=== PATIENT | male | born 1965 ===

== ENCOUNTER 2017-03-08 12:43 | Emergency (ER) | payer OTHER | END 2017-03-08 15:33 | disposition home or self-care (01) | LOC: C.ER 12:43 | DX: I10 Essential (primary) hypertension (principal) ==

== ENCOUNTER 2018-03-05 01:43 | Emergency (ER) | payer MEDICAID, OTHER ==
[2018-03-05 01:44] VITALS: BMI 30.1
[2018-03-05] MEDS ORDERED: Naloxone 0.4 mg/ml Inj (Adult) ONE ×2 (02:02→03:11)
[2018-03-05 02:39] LABS: BASO # 0.1 K/uL (0.0-0.2); BASO % 0.9 % (0.0-2.0); EOS # 0.1 K/uL (0.0-0.7); EOS % 2.2 % (0.0-4.0); HEMOGLOBIN 14.4 g/dL (12.0-18.0); LYMPH % 29.8 % (20.0-40.0); MEAN CELL VOLUME 82.6 fL (80.0-94.0); MEAN CORPUSCULAR HEMOGLOBIN 27.4 pg (27.0-31.0); MEAN CORPUSCULAR HGB CONC 33.1 g/dL (33.0-37.0); MEAN PLATELET VOLUME 9.9 fL (7.2-11.7); MONO # 0.7 K/uL (0.0-0.8); MONO % 9.9 % (0.0-10.0); NEUT # 3.8 K/uL (1.8-7.0); NEUT % 57.2 % (50.0-75.0); NRBC % 0.1 % (0.0-2.0); RBC 5.25 Mil/uL (4.40-5.90); RED CELL DISTRIBUTION WIDTH 15.7 % (11.5-14.5); WHITE BLOOD COUNT 6.6 K/uL (4.8-10.8)
[2018-03-05 02:47] LABS: ALB/GLOB RATIO 1.2 (1.0-2.1); ALBUMIN 3.8 g/dL (3.5-5.0); ALT/SGPT 77 U/L (21-72); AST/SGOT 61 U/L (17-59); BLOOD UREA NITROGEN 13 mg/dL (9-20); CALCIUM 8.9 mg/dl (8.6-10.4); GFR AFRICAN-AMERICAN > 60; GFR NON-AFRICAN AMERICAN > 60
[2018-03-05] MEDS ORDERED: Naloxone 0.4 mg/ml Inj (Adult) IVP ONE (02:51)
[2018-03-05] MEDS ORDERED: Naloxone 0.4 mg/ml Inj (Adult) IM ONE (03:00)
[2018-03-05 03:13] LABS: URINE BILIRUBIN NEGATIVE (NEGATIVE); URINE CLARITY Clear (Clear); URINE COLOR Straw (YELLOW); URINE GLUCOSE (UA) NORMAL (Normal); URINE LEUKOCYTE ESTERASE NEG Leu/uL (Negative); URINE PROTEIN 1+ mg/dL (NEGATIVE); URINE UROBILINOGEN NORMAL mg/dL (0.2-1.0)
[2018-03-05 03:14] LABS: URINE BLOOD TRACE (NEGATIVE)
[2018-03-05 04:15] LABS: BARBITURATES, UR NEGATIVE (NEGATIVE); BENZODIAZEPINES, UR NEGATIVE (NEGATIVE); OPIATES, UR NEGATIVE (NEGATIVE); PHENCYCLIDINE, UR NEGATIVE (NEGATIVE)
--- NOTE | 2018-03-05 06:17 | C.PDOC ---
History Of Present Illness Pt was BIBEMS due to public intoxication. Time Seen by Provider: 03/05/18 02:07 Chief Complaint (Nursing): Altered Mental Status History Per: Patient, EMS History/Exam Limitations: Intoxication Onset/Duration Of Symptoms: Unknown Current Symptoms Are (Timing): Still Present Exacerbating Factor(s): Drug Use, Alcohol Use Severity: Severe Additional History Per: Prior Records Past Medical History Reviewed: Historical Data, Nursing Documentation, Vital Signs Vital Signs: Last Vital Signs Temp 97.5 F L 03/05/18 01:54 Pulse 77 03/05/18 06:27 Resp 20 03/05/18 06:27 BP 149/82 03/05/18 06:27 Pulse Ox 95 03/05/18 06:27 - Medical History PMH: CHF, HTN, Hypercholesterolemia, Schizophrenia - [facility] Procedures DETOXIFICATION SERVICES FOR SUBSTANCE ABUSE TREATMENT (01/26/16) DIPHTHERIA TOXOID ADMIN (01/01/14) INSERTION OF ENDOTRACHEAL AIRWAY INTO TRACHEA, VIA OPENING (01/26/16) RESPIRATORY VENTILATION, GREATER THAN 96 CONSECUTIVE HOURS (01/26/16) TETANUS TOXOID ADMINIST (01/01/14) Family History: States: Unknown Family Hx - Social History Hx Tobacco Use: Yes Hx Alcohol Use: Yes - Immunization History Hx Influenza Vaccination: No Hx Pneumococcal Vaccination: Yes Review Of Systems Review Of Systems: ROS cannot be obtained secondary to pt's inabilty to answer questions. Physical Exam - Physical Exam Appears: Other (Arousable only to deep painful stimuli) Skin: Normal Color, Warm, Dry Head: Atraumatic Eye(s): bilateral: PERRL Neck: Normal ROM, No Midline Cervical Tenderness, No Step Off Deformity, Supple Cardiovascular: Rhythm Regular Respiratory: Normal Breath Sounds, No Accessory Muscle Use Gastrointestinal/Abdominal: Soft Extremity: Normal ROM, No Deformity Neurological/Psych: No Response To Commands Pain Response: Withdraws With Pain Gait: Unable To Assess ED Course And Treatment - Laboratory Results Result Diagrams: 03/05/18 02:34 03/05/18 02:34 O2 Sat by Pulse Oximetry: 98 Pulse Ox Interpretation: Normal - CT Scan/US CT head Other Rad Studies (CT/US): Read By Radiologist, Radiology Report Reviewed CT/US Interpretation: IMPRESSION: 1.No evidence of intracranial hemorrhage, midline shift or mass effect is noted. Progress Note: Pt is improving, now arrousable to light touch/loud verbal stimuli. Reassessment Condition: Improved Disposition - Disposition Disposition Time: 07:00 Condition: FAIR - Clinical Impression Clinical Impression: Alcohol intoxication, Altered mental status Physician Patient Turnover Patient Signed Over To: Juan Manuel Garcia Handoff Comments: to reassess/dispo pt once sober.
[2018-03-05 07:54] VITALS: RESP 18
[2018-03-05 10:27] VITALS: BP 187/96; PULSE 86; TEMP 99.1; O2SAT 98
--- NOTE | 2018-03-05 12:20 | CT ---
Date of service: 03/05/2018 PROCEDURE: CT HEAD WITHOUT CONTRAST. HISTORY: AMS COMPARISON: None available. TECHNIQUE: Axial computed tomography images were obtained through the head/brain without intravenous contrast. Radiation dose: Total exam DLP = 1040.98 mGy-cm. This CT exam was performed using one or more of the following dose reduction techniques: Automated exposure control, adjustment of the mA and/or kV according to patient size, and/or use of iterative reconstruction technique. FINDINGS: HEMORRHAGE: No intracranial hemorrhage. BRAIN: Dilated perivascular spaces versus chronic lacune infarcts are seen at the bilateral basal ganglia with remaining brain normal in density throughout. Good corticomedullary differentiation is appreciated with posterior fossa contents unremarkable. No mass effect. VENTRICLES: Unremarkable. No hydrocephalus. CALVARIUM: Unremarkable. PARANASAL SINUSES: Left maxillary sinus cyst or polyp noted inferiorly. MASTOID AIR CELLS: Unremarkable as visualized. No inflammatory changes. OTHER FINDINGS: None. IMPRESSION: No acute intracranial findings though chronic lacunes are difficult to differentiate from a few dilated perivascular a seen the bilateral basal ganglia. Concordant preliminary report from [facility], 03/05/2018.
== END 2018-03-05 10:44 | disposition home or self-care (01) ==
LOC: C.ER 01:43
DX: F10.129 Alcohol abuse with intoxication, unspecified (principal); Y90.6 Blood alcohol level of 120-199 mg/100 ml; R41.82 Altered mental status, unspecified; I11.0 Hypertensive heart disease with heart failure; I50.9 Heart failure, unspecified; E78.00 Pure hypercholesterolemia, unspecified; F20.9 Schizophrenia, unspecified
CPT/HCPCS: 70450; 80053; 80320; 80324; 80345; 80346; 80349; 80353; 80358; 80361; 81001; 82948; 83992; 85025; 96372; 96374; 99285; J2310

== ENCOUNTER 2018-04-01 19:59 | Emergency (ER) | payer MEDICAID, OTHER ==
[2018-04-01 19:59] VITALS: BMI 30.1
--- NOTE | 2018-04-01 20:09 | C.PDOC ---
History Of Present Illness 53 year old male presents to the ED c/o chest pain. Patient states he had been drinking alcohol tonight. Patient denies any drug abuse, SOB, palpitations, other medical complaints. History Per: Patient History/Exam Limitations: intoxication Onset/Duration Of Symptoms: Hrs Current Symptoms Are (Timing): Still Present Severity: None Quality: "Pain" Exacerbating Factors: None Alleviating Factors: None Recent travel outside of the [place]: No Additional History Per: Patient Past Medical History Reviewed: Historical Data, Nursing Documentation, Vital Signs Vital Signs: Last Vital Signs Temp 97.8 F 04/02/18 00:03 Pulse 85 04/02/18 00:03 Resp 16 04/02/18 00:03 BP 145/83 04/02/18 00:03 Pulse Ox 98 04/02/18 00:03 - Medical History PMH: CHF, HTN, Hypercholesterolemia, Schizophrenia Denies: HIV, Chronic Kidney Disease, Seizures, Sexually Transmitted Disease Surgical History: No Surg Hx - [facility] Procedures DETOXIFICATION SERVICES FOR SUBSTANCE ABUSE TREATMENT (01/26/16) DIPHTHERIA TOXOID ADMIN (01/01/14) INSERTION OF ENDOTRACHEAL AIRWAY INTO TRACHEA, VIA OPENING (01/26/16) RESPIRATORY VENTILATION, GREATER THAN 96 CONSECUTIVE HOURS (01/26/16) TETANUS TOXOID ADMINIST (01/01/14) Family History: States: Unknown Family Hx - Social History Hx Tobacco Use: Yes Hx Alcohol Use: Yes Hx Substance Use: No - Immunization History Hx Influenza Vaccination: No Hx Pneumococcal Vaccination: Yes Review Of Systems Constitutional: Negative for: Fever, Chills Cardiovascular: Positive for: Chest Pain. Negative for: Palpitations Respiratory: Negative for: Cough, Shortness of Breath Gastrointestinal: Negative for: Nausea, Vomiting Skin: Negative for: Rash Neurological: Negative for: Weakness, Numbness Physical Exam - Physical Exam Appears: Non-toxic, Other (lethargic) Skin: Normal Color, Warm, Dry Head: Atraumatic, Normacephalic Eye(s): bilateral: Normal Inspection Oral Mucosa: Moist Neck: Normal ROM, Supple Chest: Symmetrical Cardiovascular: Rhythm Regular Respiratory: Normal Breath Sounds, No Rales, No Rhonchi, No Wheezing Gastrointestinal/Abdominal: Soft, No Tenderness, No Guarding, No Rebound Extremity: Normal ROM, No Tenderness, No Swelling Neurological/Psych: Oriented x3, Normal Speech Gait: Steady ED Course And Treatment - Laboratory Results Result Diagrams: 04/01/18 20:39 04/01/18 20:39 ECG: Interpreted By Me, Viewed By Me ECG Rhythm: Sinus Rhythm ECG Interpretation: No Acute Changes, Abnormal Interpretation Of ECG: NSR, prolonged QT interval, no acute changes, aabnormal tracings. ST-T abnormality no longer seen compare to travings of 07/07/2016 Rate From EC Pulse Ox Interpretation: Normal Medical Decision Making Medical Decision Making: Plan: * EKG * Labs * CXR * UA * IV fluids Disposition Counseled Patient/Family Regarding: Diagnosis - Disposition Referrals: [facility] [Outside] Disposition: HOME/ ROUTINE Disposition Time: 06:00 Condition: STABLE Prescriptions: Potassium Chloride 20 meq PO DAILY #14 [email or web address] Instructions: Hypokalemia (DC), Alcohol Abuse and Alcoholism (DC) - POA Present On Arrival: None - Clinical Impression Clinical Impression: Alcohol intoxication, Hypokalemia - Scribe Statement The provider has reviewed the documentation as recorded by the Scribe Eduardo Velazquez All medical record entries made by the Scribe were at my direction and personally dictated by me. I have reviewed the chart and agree that the record accurately reflects my personal performance of the history, physical exam, medical decision making, and the department course for this patient. I have also personally directed, reviewed, and agree with the discharge instructions and disposition.
[2018-04-01] MEDS ORDERED: Sodium Chloride 0.9% 1,000 ML IV ONE (20:22)
[2018-04-01 20:43] LABS: BASO % 0.5 % (0.0-2.0); EOS # 0.2 K/uL (0.0-0.7); EOS % 2.5 % (0.0-4.0); LYMPH # 1.8 K/uL (1.0-4.3); LYMPH % 26.1 % (20.0-40.0); MEAN CELL VOLUME 84.7 fL (80.0-94.0); MEAN CORPUSCULAR HEMOGLOBIN 28.2 pg (27.0-31.0); MEAN CORPUSCULAR HGB CONC 33.3 g/dL (33.0-37.0); MEAN PLATELET VOLUME 9.5 fL (7.2-11.7); MONO # 0.7 K/uL (0.0-0.8); MONO % 9.7 % (0.0-10.0); NEUT # 4.2 K/uL (1.8-7.0); NEUT % 61.2 % (50.0-75.0); NRBC % 0.3 % (0.0-2.0); RBC 5.33 Mil/uL (4.40-5.90); RED CELL DISTRIBUTION WIDTH 16.2 % (11.5-14.5); WHITE BLOOD COUNT 6.9 K/uL (4.8-10.8)
[2018-04-01 20:50] LABS: PARTIAL THROMBOPLASTIN TIME 28 SECONDS (21-34); PROTHROMBIN TIME 10.9 SECONDS (9.7-12.2)
[2018-04-01 20:57] LABS: D DIMER < 200 ng/mlDDU (0-243)
[2018-04-01 21:02] LABS: B-TYPE NATRIURETIC PEPTIDE 370 pg/mL (0-900)
[2018-04-01 21:04] LABS: URINE BILIRUBIN NEGATIVE (NEGATIVE); URINE BLOOD NEGATIVE (NEGATIVE); URINE CLARITY Clear (Clear); URINE COLOR Straw (YELLOW); URINE GLUCOSE (UA) NORMAL (Normal); URINE LEUKOCYTE ESTERASE NEG Leu/uL (Negative); URINE PROTEIN NEGATIVE (NEGATIVE); URINE UROBILINOGEN NORMAL mg/dL (0.2-1.0)
[2018-04-01 21:05] VITALS: RESP 16
[2018-04-01 21:15] LABS: ALB/GLOB RATIO 1.3 (1.0-2.1); ALBUMIN 3.8 g/dL (3.5-5.0); ALT/SGPT 145 U/L (21-72); AST/SGOT 126 U/L (17-59); BLOOD UREA NITROGEN 8 mg/dL (9-20); CALCIUM 9.2 mg/dl (8.6-10.4); GFR NON-AFRICAN AMERICAN > 60
[2018-04-01 21:18] LABS: BARBITURATES, UR NEGATIVE (NEGATIVE); BENZODIAZEPINES, UR NEGATIVE (NEGATIVE); OPIATES, UR NEGATIVE (NEGATIVE); PHENCYCLIDINE, UR NEGATIVE (NEGATIVE)
[2018-04-02] MEDS ORDERED: Potassium Chloride 20 mEq/15 ml LIQ UD PO STA (03:49)
[2018-04-02] MEDS ORDERED: Potassium Chloride 20 mEq ER Tab PO ONE (04:59)
[2018-04-02 06:24] VITALS: TEMP 98.3
[2018-04-02 06:51] VITALS: BP 152/101; PULSE 69; O2SAT 98
--- NOTE | 2018-04-02 09:31 | RAD ---
Date of service: 04/01/2018 PROCEDURE: CHEST RADIOGRAPH, 1 VIEW HISTORY: chest pain COMPARISON: Comparison chest 07/06/2016 FINDINGS: LUNGS: Mild pulmonary venous congestive changes. Persistent elevation right hemidiaphragm possibly secondary to eventration or scalloping PLEURA: No pneumothorax or pleural fluid seen. CARDIOVASCULAR: Marked cardiomegaly. Interval placement single lead pacemaker/defibrillator. OSSEOUS STRUCTURES: No significant abnormalities. VISUALIZED UPPER ABDOMEN: Normal. OTHER FINDINGS: None. IMPRESSION: Mild pulmonary venous congestive changes. Persistent elevation right hemidiaphragm possibly secondary to eventration or scalloping Marked cardiomegaly.
== END 2018-04-02 07:03 | disposition home or self-care (01) ==
LOC: C.ER 19:59
DX: F10.129 Alcohol abuse with intoxication, unspecified (principal); Y90.6 Blood alcohol level of 120-199 mg/100 ml; E87.6 Hypokalemia

== ENCOUNTER 2018-06-05 16:58 | Observation (INO) | payer OTHER ==
[2018-06-05 16:58] VITALS: BMI 30.1
--- NOTE | 2018-06-05 17:36 | C.PDOC ---
History Of Present Illness 53 year old male, whose past medical history includes hypertension (complaint with medications) and social history includes smoking, presents to the ED for evaluation of cough, chest tightness, pleuritic pain and shortness of breath which developed over several days. Patient denies fever, chills or history of asthma. Time Seen by Provider: 06/05/18 17:19 History Per: Patient History/Exam Limitations: no limitations Onset/Duration Of Symptoms: Days Current Symptoms Are (Timing): Still Present Quality: Tightness Current Respiratory Medications: See Home Med List Associated Symptoms: denies: Fever Additional History Per: Patient Past Medical History Reviewed: Historical Data, Nursing Documentation, Vital Signs Vital Signs: Last Vital Signs Temp 98.8 F 06/05/18 17:29 Pulse 78 06/05/18 17:29 Resp 16 06/05/18 17:29 BP 202/129 H 06/05/18 17:29 Pulse Ox 97 06/05/18 17:29 - Medical History PMH: CHF, HTN, Hypercholesterolemia, Schizophrenia Denies: HIV, Chronic Kidney Disease, Seizures, Sexually Transmitted Disease Surgical History: Pacemaker (w/ defibrillator) - [email or web address] Procedures DETOXIFICATION SERVICES FOR SUBSTANCE ABUSE TREATMENT (01/26/16) DIPHTHERIA TOXOID ADMIN (01/01/14) INSERTION OF ENDOTRACHEAL AIRWAY INTO TRACHEA, VIA OPENING (01/26/16) RESPIRATORY VENTILATION, GREATER THAN 96 CONSECUTIVE HOURS (01/26/16) TETANUS TOXOID ADMINIST (01/01/14) Family History: States: Unknown Family Hx - Social History Hx Tobacco Use: Yes Hx Alcohol Use: Yes Hx Substance Use: No - Immunization History Hx Tetanus Toxoid Vaccination: No Hx Influenza Vaccination: No Hx Pneumococcal Vaccination: Yes Review Of Systems Constitutional: Negative for: Fever, Chills Cardiovascular: Positive for: Other (chest tightness, pleuritic pain ) Respiratory: Positive for: Cough, Shortness of Breath Physical Exam - Physical Exam Appears: Non-toxic, Other (in mild distress) Skin: Normal Color, Warm, Dry Head: Atraumatic, Normacephalic Eye(s): bilateral: Normal Inspection Ear(s): Bilateral: Normal Oral Mucosa: Moist Throat: Normal, No Erythema, No Exudate Neck: Supple Chest: Symmetrical, No Deformity, No Tenderness Cardiovascular: Rhythm Regular, No Murmur Respiratory: No Rales, No Rhonchi, Wheezing (bilateral, expiratory ), Other (tachypneic) Extremity: Normal ROM, Capillary Refill (less than 2 seconds ), No Other (edema ) Neurological/Psych: Oriented x3, Normal Speech, Normal Cognition ED Course And Treatment - Laboratory Results Result Diagrams: 06/05/18 17:55 06/05/18 17:55 ECG: Interpreted By Me ECG Rhythm: Sinus Rhythm ECG Interpretation: Normal Rate From EC O2 Sat by Pulse Oximetry: 97 (on RA) Pulse Ox Interpretation: Normal Progress Note: Bloodwork, CXR, EKG ordered and reviewed. Catapres PO, Duoneb INH, and Solu-Medrol IVP given. Progress - Re-Evaluation Re-evaluation Note: 06/05/18 18:45 CO PERSIST SOB, CHEST TIGHTNESS. REQUESTING ADMISSION. PS NO PMD D/W DR BROCK ROMERO [employer] WILL ADMIT - Data Reviewed Data Reviewed: Lab, Diagnostic imaging, EKG, Old records Disposition Counseled Patient/Family Regarding: Studies Performed, Diagnosis - Disposition Disposition: HOSPITALIZED Disposition Time: 18:46 Condition: SERIOUS - POA Present On Arrival: None - Clinical Impression Clinical Impression: Asthma exacerbation, Uncontrolled hypertension - Scribe Statement The provider has reviewed the documentation as recorded by the Scribe (Darcie Herrera) Provider Attestation: All medical record entries made by the Scribe were at my direction and personally dictated by me. I have reviewed the chart and agree that the record accurately reflects my personal performance of the history, physical exam, medical decision making, and the department course for this patient. I have also personally directed, reviewed, and agree with the discharge instructions and disposition.
[2018-06-05] MEDS: Albuterol-Ipratrop 3 mg / 0.5 (3 ml) UD IH SCH ×2 (17:45→18:01)
[2018-06-05] MEDS ORDERED: Albuterol-Ipratrop 3 mg / 0.5 (3 ml) UD ONE (17:55)
[2018-06-05 17:59] LABS: BASO % 0.7 % (0.0-2.0); EOS # 0.3 K/uL (0.0-0.7); EOS % 4.6 % (0.0-4.0); HEMOGLOBIN 15.1 g/dL (12.0-18.0); LYMPH # 1.8 K/uL (1.0-4.3); MEAN CELL VOLUME 84.1 fL (80.0-94.0); MEAN CORPUSCULAR HEMOGLOBIN 27.1 pg (27.0-31.0); MEAN CORPUSCULAR HGB CONC 32.3 g/dL (33.0-37.0); MONO # 0.9 K/uL (0.0-0.8); MONO % 13.4 % (0.0-10.0); NEUT # 3.5 K/uL (1.8-7.0); NEUT % 54.3 % (50.0-75.0); NRBC % 0.1 % (0.0-2.0); RBC 5.55 Mil/uL (4.40-5.90); RED CELL DISTRIBUTION WIDTH 15.6 % (11.5-14.5); WHITE BLOOD COUNT 6.5 K/uL (4.8-10.8)
[2018-06-05 18:12] LABS: ALB/GLOB RATIO 1.2 (1.0-2.1); ALBUMIN 3.9 g/dL (3.5-5.0); ALT/SGPT 222 U/L (21-72); AST/SGOT 175 U/L (17-59); BLOOD UREA NITROGEN 12 mg/dL (9-20); CALCIUM 9.2 mg/dl (8.6-10.4); GFR NON-AFRICAN AMERICAN > 60
[2018-06-05] MEDS ORDERED: MethylPREDNISolone 40 mg Vial ONE (18:36)
[2018-06-05 18:39] VITALS: RESP 20
[2018-06-05] MEDS ORDERED: Enalaprilat 2.5 MG/2 ML IV ONE (18:46)
[2018-06-05] MEDS ORDERED: MethylPREDNISolone 40 mg Vial IVP SCH (20:30)
[2018-06-05] MEDS ORDERED: Metoprolol 1 mg/ml Inj IVP ONE (23:01)
[2018-06-05] MEDS: Albuterol-Ipratrop 3 mg / 0.5 (3 ml) UD INH SCH (23:58)
[2018-06-06] MEDS: MethylPREDNISolone 40 mg Vial IVP SCH ×4 (00:36→18:15)
[2018-06-06] MEDS: Albuterol-Ipratrop 3 mg / 0.5 (3 ml) UD INH SCH ×6 (03:20→23:58)
--- NOTE | 2018-06-06 08:52 | CT ---
Date of service: 06/06/2018 PROCEDURE: CT HEAD WITHOUT CONTRAST. HISTORY: hypertension/hypertensive urgency COMPARISON: 03/05/2018 TECHNIQUE: Axial computed tomography images were obtained through the head/brain without intravenous contrast. Radiation dose: Total exam DLP = 1140.66 mGy-cm. This CT exam was performed using one or more of the following dose reduction techniques: Automated exposure control, adjustment of the mA and/or kV according to patient size, and/or use of iterative reconstruction technique. FINDINGS: HEMORRHAGE: No intracranial hemorrhage. BRAIN: No mass effect or edema. The prior dilated perivascular spaces with or without tiny concomitant chronic chronic basal ganglionic lacunar infarcts are similar. Findings are more pronounced in the left side yet stable since prior exam. VENTRICLES: Unremarkable. No hydrocephalus. CALVARIUM: Unremarkable. PARANASAL SINUSES: Unremarkable as visualized. No significant inflammatory changes. The previously referenced maxillary sinus floor retention cyst and/or polyp is beyond the field of view on this exam MASTOID AIR CELLS: Unremarkable as visualized. No inflammatory changes. OTHER FINDINGS: Similar marked left word nasal septal spurring/deviation IMPRESSION: No interval intracranial hemorrhage or mass effect. Chronic changes as above
[2018-06-06] MEDS: Potassium Chloride 20 mEq ER Tab PO SCH (09:47)
[2018-06-06] MEDS: Metoprolol Succinate 100 mg XL Tab PO SCH (09:47)
--- NOTE | 2018-06-06 09:58 | RAD ---
Date of service: 06/05/2018 HISTORY: SOB COMPARISON: 04/01/2018 TECHNIQUE: Chest PA and lateral FINDINGS: LUNGS: No focal consolidation. Mild congestive change. PLEURA: No significant pleural effusion identified. No pneumothorax apparent. CARDIOVASCULAR: Normal heart size. AICD. OSSEOUS STRUCTURES: No significant abnormalities. VISUALIZED UPPER ABDOMEN: Normal. OTHER FINDINGS: None. IMPRESSION: No active disease.
[2018-06-06 11:51] LABS: BASO % 0.1 % (0.0-2.0); LYMPH # 0.6 K/uL (1.0-4.3); LYMPH % 10.5 % (20.0-40.0); MEAN CELL VOLUME 85.3 fL (80.0-94.0); MEAN CORPUSCULAR HEMOGLOBIN 27.6 pg (27.0-31.0); MEAN CORPUSCULAR HGB CONC 32.3 g/dL (33.0-37.0); MEAN PLATELET VOLUME 11.1 fL (7.2-11.7); MONO # 0.2 K/uL (0.0-0.8); MONO % 3.3 % (0.0-10.0); NEUT % 86.1 % (50.0-75.0); RBC 5.45 Mil/uL (4.40-5.90); RED CELL DISTRIBUTION WIDTH 15.7 % (11.5-14.5); WHITE BLOOD COUNT 5.8 K/uL (4.8-10.8)
[2018-06-06 12:29] LABS: B-TYPE NATRIURETIC PEPTIDE 637 pg/mL (0-900)
[2018-06-06 12:32] LABS: LDL CHOLESTEROL 176 mg/dL (0-129)
[2018-06-06 12:37] LABS: GFR NON-AFRICAN AMERICAN > 60; HDL CHOLESTEROL 41 mg/dL (30-70)
[2018-06-06 12:38] LABS: ALB/GLOB RATIO 1.2 (1.0-2.1); ALBUMIN 4.1 g/dL (3.5-5.0); ALT/SGPT 180 U/L (21-72); AST/SGOT 96 U/L (17-59); BLOOD UREA NITROGEN 18 mg/dL (9-20); CALCIUM 9.4 mg/dl (8.6-10.4)
[2018-06-06 12:44] LABS: HEPATITIS B SURFACE AG Negative (NEGATIVE)
[2018-06-06 12:50] LABS: HEPATITIS A IGM NEGATIVE (NEGATIVE); HEPATITIS B CORE AB NEGATIVE (NEGATIVE)
--- NOTE | 2018-06-06 12:53 | CP.PCM.PN ---
Subjective - Date & Time of Evaluation Date of Evaluation: 06/06/18 Time of Evaluation: 12:55 - Subjective Subjective: Progress note. Attending: Dr. Ruth. Pt seen and examined at bedside. No acute distress. pt is complaining of headach e. Went for head ct. PMH: Asthma with extensive smoking history, likely COPD at this point, tobacco abuse, HTN, dilated cardiomyopathy, cirrhosis of the liver PSH: defibrillator [place] [address] Neeraj Soares Allergies: NKDA FH: DM, heart disease, laryngeal cancer in family Social hx: Current smoker. Social drinker. States remote hx of marijuana use. Objective - Vital Signs/Intake and Output Vital Signs (last 24 hours): Temp Pulse Resp BP Pulse Ox 98.1 F 82 20 179/93 H 95 06/06/18 07:10 06/06/18 12:16 06/06/18 07:10 06/06/18 09:48 06/06/18 09:00 - Medications Medications: Current Medications Albuterol/Ipratropium (Duoneb 3 Mg/0.5 Mg (3 Ml) Ud) 3 ml INH RQ4 [facility] Last Admin: 06/06/18 08:24 Dose: 3 ml Amlodipine Besylate (Norvasc) 5 mg PO DAILY [facility] Last Admin: 06/06/18 09:47 Dose: 5 mg Furosemide (Lasix) 20 mg PO DAILY [facility] Last Admin: 06/06/18 09:48 Dose: 20 mg Hydralazine HCl (Apresoline) 100 mg PO BID [facility] Last Admin: 06/06/18 09:47 Dose: 100 mg Influenza Virus Vaccine (Fluzone Quad 2991-4417) 60 mcg IM .ONCE ONE Stop: 06/09/18 07:01 Losartan Potassium (Cozaar) 100 mg PO DAILY [facility] Last Admin: 06/06/18 09:47 Dose: 100 mg Metformin HCl (Glucophage) 500 mg PO BIDCC [facility] Last Admin: 06/06/18 09:47 Dose: 500 mg Methylprednisolone (Solu-Medrol) 40 mg IVP Q6 [facility] Last Admin: 06/06/18 05:29 Dose: 40 mg Metoprolol Succinate (Toprol Xl) 100 mg PO DAILY [facility] Last Admin: 06/06/18 09:47 Dose: 100 mg Pneumococcal Polyvalent Vaccine (Pneumovax 23 Vaccine) 0.5 ml IM .ONCE ONE Stop: 06/09/18 07:01 Potassium Chloride (K-Dur 20 Meq Er Tab) 20 meq PO DAILY [facility] Last Admin: 06/06/18 09:47 Dose: 20 meq Quetiapine Fumarate (Seroquel) 100 mg PO DAILY [facility] Last Admin: 06/06/18 09:48 Dose: 100 mg Quetiapine Fumarate (Seroquel) 400 mg PO HS BERT Rosuvastatin Calcium (Crestor) 5 mg PO HS BERT Sertraline HCl (Zoloft) 200 mg PO DAILY [facility] Last Admin: 06/06/18 09:48 Dose: 200 mg Trazodone HCl (Desyrel) 50 mg PO DAILY [facility] Last Admin: 06/06/18 09:48 Dose: 50 mg - Labs Labs: 06/06/18 11:43 06/06/18 11:43 - Constitutional Appears: Non-toxic, No Acute Distress - Head Exam Head Exam: ATRAUMATIC, NORMAL INSPECTION, NORMOCEPHALIC - Eye Exam Eye Exam: EOMI - ENT Exam ENT Exam: Mucous Membranes Moist, Normal Exam - Neck Exam Neck Exam: Full ROM, Normal Inspection - Respiratory Exam Respiratory Exam: absent: Respiratory Distress - Cardiovascular Exam Cardiovascular Exam: +S1, +S2 - GI/Abdominal Exam GI & Abdominal Exam: Soft, Normal Bowel Sounds. absent: Tenderness - Extremities Exam Extremities Exam: Full ROM. absent: Normal Inspection Additional comments: numerous tattoos bilaterally - Back Exam Back Exam: NORMAL INSPECTION - Neurological Exam Neurological Exam: Alert, Awake, Oriented x3 - Psychiatric Exam Psychiatric exam: Normal Affect, Normal Mood - Skin Skin Exam: Abrasion Assessment and Plan - Assessment and Plan (Free Text) Assessment: This is a 53 yo male with [facility] COPD exacerbation -duonebs RQ4 solumedrol 40 IV q 6 hrs -smoking cessation -urine drug screen negative 2. hypertensive urgency -ct scan negative -losartan 100 PO daily -continue hydralazine PO -continue norvasc 10 mg po, increased from previous 5 -adding clonidine .1 mg po bid as well 3. hx of heart failure -lasix 20 PO daily -toprol XL 100 PO daily -continue k dur daily -cardio consult. Dr. Batres. recs appreciated. 4. hx of DM -HGB a1c -lipid panel -metformin 500 BID -hypoglycemia protocol -insulin sliding scale 5. Hx of psychiatric illness/bipolar disorder -continue seroquel 100 po daily -continue seroquel at night 6. Hx of HLD -continue crestor 5 mg po hs 7. hx of depression -continue zoloft 200 mg po daily 8. hx of sleep disorder -continue trazodone daily 8. GI/DVT ppx -scds -GI: not indicated discussed with Dr. Ruth.
[2018-06-06 13:02] LABS: HEPATITIS C ANTIBODY NEGATIVE (NEGATIVE)
--- NOTE | 2018-06-06 13:08 | CP.PCM.CON ---
History of Present Illness - History of Present Illness History of Present Illness: I was asked to see patient by Dr Ruth. Patient ws seen on 06/06/18 at 1210 Patient is a 53 year old male with HTn and schizoaffective disorder who presents with cough. he states his symptoms began one month ago but became worse in the last 2 weeks. the patient describes a cough which is dry at times but feels congestion. He presented to [facility] and was found to be hypertensive. He denies chest pain. Review of Systems - Constitutional Constitutional: absent: As Per HPI, Anorexia, Chills, Daytime Sleepiness, Excessive Sweating, Fatigue, Fever, Frequent Falls, Headache, Increased Appetite, Lethargy, Malaise, Night Sweats, Snoring, Sleep Apnea, Weight Gain, Weight Loss, Weakness, Other - EENT Eyes: absent: As Per HPI, Blind Spots, Blurred Vision, Change in Vision, Decreased Night Vision, Diplopia, Discharge, Dry Eye, Exophthalmos, Floaters, Irritation, Itchy Eyes, Loss of Peripheral Vision, Pain, Photophobia, Requires Corrective Lenses, Sees Flashes, Spots in Vision, Tunnel Vision, Other Visual Disturbances, Loss of Vision, Other Ears: absent: As Per HPI, Decreased Hearing, Ear Discharge, Ear Pain, Tinnitus, Abnormal Hearing, Disequilibrium, Dizziness, Other Nose/Mouth/Throat: absent: As Per HPI, Epistaxis, Nasal Congestion, Nasal Discharge, Nasal Obstruction, Nasal Trauma, Nose Pain, Post Nasal Drip, Sinus Pain, Sinus Pressure, Bleeding Gums, Change in Voice, Dental Pain, Dry Mouth, Dysphagia, Halitosis, Hoarsness, Lip Swelling, Mouth Lesions, Mouth Pain, Odynophagia, Sore Throat, Throat Swelling, Tongue Swelling, Facial Pain, Neck Pain, Neck Mass, Other - Cardiovascular Cardiovascular: absent: As Per HPI, Acrocyanosis, Chest Pain, Chest Pain at Rest, Chest Pain with Activity, Claudication, Diaphoresis, Dyspnea, Dyspnea on Exertion, Edema, Irregular Heart Rhythm, Pain Radiating to Arm/Neck/Jaw, Leg Edema, Leg Ulcers, Lightheadedness, Orthopnea, Palpitations, Paroxysmal Nocturnal Dyspnea, Pedal Edema, Radiating Pain, Rapid Heart Rate, Slow Heart Rate, Syncope, Other - Respiratory Respiratory: Cough - Gastrointestinal Gastrointestinal: absent: As Per HPI, Abdominal Pain, Belching, Bloating, Change in Bowel Habits, Change in Stool Character, Coffee Ground Emesis, Constipation, Cramping, Diarrhea, Dyspepsia, Dysphagia, Early Satiety, Excessive Flatus, Fecal Incontinence, Heartburn, Hematemesis, Hematochezia, Loose Stools, Melena, Nausea, Odynophagia, Temesmus, Vomiting, Other - Genitourinary Genitourinary: absent: As Per HPI, Change in Urinary Stream, Difficulty Urinating, Dysuria, Flank Pain, Hematuria, Pyuria, Nocturia, Urinary Incontinence, Urinary Frequency, Urinary Hesitance, Urinary Urgency, Voiding Freq/Small Amts, Freq UTI, Hx Renal/Bladder Calculi, Hx /Renal Surgery, Bladder Distension, Other - Musculoskeletal Musculoskeletal: absent: As Per HPI, Abnormal Gait, Arthralgias, Atrophy, Back Pain, Deformity, Joint Swelling, Limited Range of Motion, Loss of Height, Muscle Cramps, Muscle Weakness, Myalgias, Neck Pain, Numbness, Radiating Pain into Limb, Stiffness, Tingling, Other - Integumentary Integumentary: absent: As Per HPI, Acne, Alopecia, Bleeding Lesions, Change in Hair, Change in Nails, Change in Pigmentation, Changing Lesions, Dry Skin, Erythema, Furuncle, Hirsutism, Lesions, New Lesions, Non-Healing Lesions, Photosensitivity, Pruritus, Rash, Skin Pain, Skin Ulcer, Sores, Striae, Swelling, Unusual Bruising, Wounds, Jaundice, Other - Neurological Neurological: absent: As Per HPI, Abnormal Gait, Abnormal Hearing, Abnormal Movements, Abnormal Speech, Behavioral Changes, Burning Sensations, Confusion, Convulsions, Disequilibrium, Dizziness, Numbness, Focal Weakness, Frequent Falls, Headaches, Lack of Coordination, Loss of Vision, Memory Loss, Paresthesias, Radicular Pain, Restless Legs, Sensory Deficit, Syncope, Tingling, Tremor, Vertigo, Weakness, Other Visual Disturbances, Other - Psychiatric Psychiatric: absent: As Per HPI, Abnormal Sleep Pattern, Anhedonia, Anxiety, Auditory Hallucinations, Behavioral Changes, Change in Appetite, Change in Libido, Confusion, Depression, Difficulty Concentrating, Hallucinations, Homicidal Ideation, Hopelessness, Irritability, Memory Loss, Mood Swings, Panic Attacks, Paranoia, Suicidal Ideation, Visual Hallucinations, Tactile Hallucina tions, Other - Endocrine Endocrine: absent: As Per HPI, Change in Body Appearance, Change in Libido, Cold Intolorance, Deepening of Voice, Excessive Sweating, Fatigue, Flushing, Heat Intolorance, Increase in Ring/Shoe/Hat Size, Palpitations, Polydipsia, Polypha allison, Polyuria, Other - Hematologic/Lymphatic Hematologic: absent: As Per HPI, Easy Bleeding, Easy Bruising, Lymphadenopathy, Other Past Patient History - Infectious Disease Hx of Infectious Diseases: None - Tetanus Immunizations Tetanus Immunization: Unknown - Past Medical History & Family History Past Medical History?: Yes - Past Social History Smoking Status: Light Smoker < 10 Cigarettes Daily - CARDIAC Hx Congestive Heart Failure: Yes Hx Hypercholesterolemia: Yes Hx Hypertension: Yes Hx Pacemaker: Yes (w/ defibrillator) - PULMONARY Hx Respiratory Disorders: No Hx Tuberculosis: No - NEUROLOGICAL Hx Seizures: No - HEENT Hx HEENT Problems: No - RENAL Hx Chronic Kidney Disease: No - ENDOCRINE/METABOLIC Hx Endocrine Disorders: Yes Hx Diabetes Mellitus Type 2: Yes - HEMATOLOGICAL/ONCOLOGICAL Hx Human Immunodeficiency Virus (HIV): No - INTEGUMENTARY Hx Dermatological Problems: No - MUSCULOSKELETAL/RHEUMATOLOGICAL Hx Musculoskeletal Disorders: No Hx Falls: No - GASTROINTESTINAL Hx Gastrointestinal Disorders: No - GENITOURINARY/GYNECOLOGICAL Hx Sexually Transmitted Disorders: No - PSYCHIATRIC Hx Schizophrenia: Yes Hx Substance Use: No - SURGICAL HISTORY Hx Surgeries: Yes Hx Cardiac Catheterization: Yes - ANESTHESIA Hx Anesthesia: Yes Hx Anesthesia Reactions: No Hx Malignant Hyperthermia: No Meds Allergies/Adverse Reactions: Allergies Allergy/AdvReac Type Severity Reaction Status Date / Time No Known Allergies Allergy Verified 04/01/18 20:20 - Medications Medications: Current Medications Albuterol/Ipratropium (Duoneb 3 Mg/0.5 Mg (3 Ml) Ud) 3 ml INH RQ4 [facility] Last Admin: 06/06/18 08:24 Dose: 3 ml Amlodipine Besylate (Norvasc) 5 mg PO DAILY [facility] Last Admin: 06/06/18 09:47 Dose: 5 mg Furosemide (Lasix) 20 mg PO DAILY [facility] Last Admin: 06/06/18 09:48 Dose: 20 mg Hydralazine HCl (Apresoline) 100 mg PO BID [facility] Last Admin: 06/06/18 09:47 Dose: 100 mg Influenza Virus Vaccine (Fluzone Quad [id number]) 60 mcg IM .ONCE ONE Stop: 06/09/18 07:01 Losartan Potassium (Cozaar) 100 mg PO DAILY [facility] Last Admin: 06/06/18 09:47 Dose: 100 mg Metformin HCl (Glucophage) 500 mg PO BIDCC [facility] Last Admin: 06/06/18 09:47 Dose: 500 mg Methylprednisolone (Solu-Medrol) 40 mg IVP Q6 [facility] Last Admin: 06/06/18 05:29 Dose: 40 mg Metoprolol Succinate (Toprol Xl) 100 mg PO DAILY [facility] Last Admin: 06/06/18 09:47 Dose: 100 mg Pneumococcal Polyvalent Vaccine (Pneumovax 23 Vaccine) 0.5 ml IM .ONCE ONE Stop: 06/09/18 07:01 Potassium Chloride (K-Dur 20 Meq Er Tab) 20 meq PO DAILY [facility] Last Admin: 06/06/18 09:47 Dose: 20 meq Quetiapine Fumarate (Seroquel) 100 mg PO DAILY [facility] Last Admin: 06/06/18 09:48 Dose: 100 mg Quetiapine Fumarate (Seroquel) 400 mg PO HS [facility] Rosuvastatin Calcium (Crestor) 5 mg PO HS [facility] Sertraline HCl (Zoloft) 200 mg PO DAILY [facility] Last Admin: 06/06/18 09:48 Dose: 200 mg Trazodone HCl (Desyrel) 50 mg PO DAILY [facility] Last Admin: 06/06/18 09:48 Dose: 50 mg Physical Exam - Constitutional Appears: Non-toxic - Head Exam Head Exam: NORMAL INSPECTION - Eye Exam Eye Exam: Normal appearance - ENT Exam ENT Exam: Mucous Membranes Moist, Normal Exam, Normal Oropharynx - Neck Exam Neck exam: Positive for: Full Rom, Normal Inspection. Negative for: Lymphadenopathy, Tenderness, Thyromegaly - Respiratory Exam Respiratory Exam: NORMAL BREATHING PATTERN - Cardiovascular Exam Cardiovascular Exam: REGULAR RHYTHM. absent: Systolic Murmur - GI/Abdominal Exam GI & Abdominal Exam: Normal Bowel Sounds, Soft. absent: Distended, Mass - Rectal Exam Rectal Exam: Deferred - Extremities Exam Extremities exam: Positive for: normal inspection, tenderness. Negative for: pedal edema, pedal pulses present - Back Exam Back exam: NORMAL INSPECTION - Neurological Exam Neurological exam: Alert, Oriented x3 - Psychiatric Exam Psychiatric exam: Normal Affect, Normal Mood - Skin Skin Exam: Intact, Normal Color Results - Vital Signs Recent Vital Signs: Last Vital Signs Temp 98.1 F 06/06/18 07:10 Pulse 82 06/06/18 12:16 Resp 20 06/06/18 07:10 BP 179/93 H 06/06/18 09:48 Pulse Ox 95 06/06/18 09:00 - Labs Result Diagrams: 06/06/18 11:43 06/06/18 11:43 Labs: Laboratory Results - last 24 hr 06/05/18 06/05/18 06/06/18 17:55 17:55 11:43 WBC 6.5 5.8 RBC 5.55 5.45 Hgb 15.1 15.0 Hct 46.7 46.5 MCV 84.1 85.3 MCH 27.1 27.6 MCHC 32.3 L 32.3 L RDW 15.6 H 15.7 H Plt Count 220 209 MPV 10.0 11.1 Neut % (Auto) 54.3 86.1 H Lymph % (Auto) 27.0 10.5 L [place] % (Auto) 13.4 H 3.3 Eos % (Auto) 4.6 H 0.0 Baso % (Auto) 0.7 0.1 Neut # (Auto) 3.5 5.0 Lymph # (Auto) 1.8 0.6 L [place] # (Auto) 0.9 H 0.2 Eos # (Auto) 0.3 0.0 Baso # (Auto) 0.0 0.0 Sodium 139 Potassium 3.8 Chloride 98 Carbon Dioxide 32 H Anion Gap 13 BUN 12 Creatinine 0.8 Est GFR ( Amer) > 60 Est GFR (Non-Af Amer) > 60 Random Glucose 132 H Hemoglobin A1c Calcium 9.2 Phosphorus Magnesium Total Bilirubin 0.9 AST 175 H D ALT 222 H D Alkaline Phosphatase 58 Troponin I NT-Pro-B Natriuret Pep Total Protein 7.2 Albumin 3.9 Globulin 3.3 Albumin/Globulin Ratio 1.2 Triglycerides Cholesterol LDL Cholesterol Direct HDL Cholesterol Acetaminophen Alcohol, Quantitative Hepatitis A IgM Ab Hep Bs Antigen Hep B Core IgM Ab Hepatitis C Antibody 06/06/18 06/06/18 06/06/18 11:43 11:43 11:43 WBC RBC Hgb Hct MCV MCH MCHC RDW Plt Count MPV Neut % (Auto) Lymph % (Auto) [place] % (Auto) Eos % (Auto) Baso % (Auto) Neut # (Auto) Lymph # (Auto) [place] # (Auto) Eos # (Auto) Baso # (Auto) Sodium 134 Potassium 4.5 Chloride 96 L Carbon Dioxide 25 Anion Gap 18 BUN 18 Creatinine 0.9 Est GFR ( Amer) > 60 Est GFR (Non-Af Amer) > 60 Random Glucose Hemoglobin A1c 8.4 H D Calcium 9.4 Phosphorus 3.6 Magnesium 1.8 Total Bilirubin 0.9 AST 96 H D ALT 180 H Alkaline Phosphatase 75 Troponin I 0.0240 NT-Pro-B Natriuret Pep 637 Total Protein 7.3 Albumin 4.1 Globulin 3.3 Albumin/Globulin Ratio 1.2 Triglycerides 127 Cholesterol 229 H LDL Cholesterol Direct 176 H HDL Cholesterol 41 Acetaminophen Alcohol, Quantitative < 10 Hepatitis A IgM Ab Negative Hep Bs Antigen Negative Hep B Core IgM Ab Negative Hepatitis C Antibody Negative 06/06/18 11:43 WBC RBC Hgb Hct MCV MCH MCHC RDW Plt Count MPV Neut % (Auto) Lymph % (Auto) [place] % (Auto) Eos % (Auto) Baso % (Auto) Neut # (Auto) Lymph # (Auto) [place] # (Auto) Eos # (Auto) Baso # (Auto) Sodium Potassium Chloride Carbon Dioxide Anion Gap BUN Creatinine Est GFR ( Amer) Est GFR (Non-Af Amer) Random Glucose Hemoglobin A1c Calcium Phosphorus Magnesium Total Bilirubin AST ALT Alkaline Phosphatase Troponin I NT-Pro-B Natriuret Pep Total Protein Albumin Globulin Albumin/Globulin Ratio Triglycerides Cholesterol LDL Cholesterol Direct HDL Cholesterol Acetaminophen < 10.0 L Alcohol, Quantitative Hepatitis A IgM Ab Hep Bs Antigen Hep B Core IgM Ab Hepatitis C Antibody - EKG Data EKG Interpreted by: Myself EKG shows normal: Sinus rhythm Assessment & Plan (1) Uncontrolled hypertension Assessment and Plan: patient will need improved blood pressure control. recommend increase amlodipine to 10 mg daily. add losartan (patient has normal creatinine). can conintu other HTN meds. Status: Chronic (2) Hypercholesteremia Assessment and Plan: will hold statin therapy given elevated LFTs Status: Chronic
[2018-06-06] MEDS ORDERED: Glucagon Recombinant 1 mg Inj IM PRN ×2 (13:12→13:30)
[2018-06-06] MEDS ORDERED: Dextrose 50% SYRINGE Inj (50 ml) IV PRN (13:12)
[2018-06-06 14:21] LABS: URINE BILIRUBIN NEGATIVE (NEGATIVE); URINE BLOOD NEGATIVE (NEGATIVE); URINE CLARITY Clear (Clear); URINE COLOR Straw (YELLOW); URINE GLUCOSE (UA) 3+ mg/dL (Normal); URINE LEUKOCYTE ESTERASE NEG Leu/uL (Negative); URINE PROTEIN 1+ mg/dL (NEGATIVE); URINE UROBILINOGEN NORMAL mg/dL (0.2-1.0)
[2018-06-06 14:43] LABS: BARBITURATES, UR NEGATIVE (NEGATIVE); BENZODIAZEPINES, UR NEGATIVE (NEGATIVE); OPIATES, UR NEGATIVE (NEGATIVE); PHENCYCLIDINE, UR NEGATIVE (NEGATIVE)
[2018-06-06] MEDS ORDERED: (Novolin R) Insulin Human Regular 100 units/ml vial SC SCH (16:30)
[2018-06-06] MEDS: (Novolog) Insulin Aspart, Recombinant 100 u/ml 10 ml vial SC SCH ×3 (16:36→22:15)
--- NOTE | 2018-06-06 17:07 | CARD ---
APPROVED REPORT Date of service: 06/05/2018 EKG Measurement Heart [id number] <Conclusion> Normal sinus rhythm Possible Left atrial enlargement Prolonged QT Abnormal ECG
--- NOTE | 2018-06-06 17:37 | CARD ---
APPROVED REPORT Date of service: 06/06/2018 EXAM: Two-dimensional and M-mode echocardiogram with Doppler and color Doppler. Other Information INDICATION Cardiomyopathy Congestive Heart Failure ALCOHOL RISK FACTORS Diabetes Smoking 2D DIMENSIONS IVSd1.1 (0.7-1.1cm)LVDd5.9 (3.9-5.9cm) PWd1.4 (0.7-1.1cm)LA [id number] (18-58mL) LVDs4.6 (2.5-4.0cm)FS (%) 21.8 % LVEF (%)43.4 (>50%)LVEF (Rodriguez's)52.31 % M-Mode DIMENSIONS Left Atrium (MM)5.43 (2.5-4.0cm)IVSd1.21 (0.7-1.1cm) Aortic Root3.04 (2.2-3.7cm)LVDd6.33 (4.0-5.6cm) Aortic Cusp Exc.2.23 (1.5-2.0cm)PWd1.30 (0.7-1.1cm) FS (%) 24 %LVDs4.82 (2.0-3.8cm) LVEF (%)47 (>50%) Mitral Valve MV E Kqpqkcwq32.2cm/sMV A Xipufsxc249.0cm/sE/A ratio0.8 TDI Lateral E' Peak V6.16cm/sMedial E' Peak V5.25cm/sE/Lateral E'15.0 E/Medial E'17.6 Tricuspid Valve TR Peak [id number]/sTR Peak [id number] LEFT VENTRICLE The left ventricle is normal size. There is mild concentric left ventricular hypertrophy. The left ventricular ejection fraction is moderate to markedly reduced, visually 30-35%. There is diffuse hypokinesis. No regional wall motion abnormalities noted. Transmitral Doppler flow pattern is Grade I-abnormal relaxation pattern. No left ventricle thrombus noted on this study. There is no ventricular septal defect visualized. There is no left ventricular aneurysm. There is no mass noted in the left ventricle. RIGHT VENTRICLE The right ventricle is normal size. There is normal right ventricular wall thickness. The right ventricular systolic function is normal. ATRIA The left atrial volume index is mildly increased. The right atrium size is normal. The interatrial septum is intact with no evidence for an atrial septal defect. AORTIC VALVE The aortic valve is normal in structure and function. No aortic regurgitation is present. There is no aortic valvular stenosis. There is no aortic valvular vegetation. MITRAL VALVE The mitral valve is normal in structure and function. There is no evidence of mitral valve prolapse. There is no mitral valve stenosis. There is no mitral valve regurgitation noted. TRICUSPID VALVE The tricuspid valve is normal in structure and function. There is no tricuspid valve regurgitation noted. There is no tricuspid valve prolapse or vegetation. There is no tricuspid valve stenosis. PULMONIC VALVE The pulmonary valve is normal in structure and function. There is no pulmonic valvular regurgitation. There is no pulmonic valvular stenosis. GREAT VESSELS The aortic root is normal in size. The ascending aorta is normal in size. The pulmonary artery is normal. The IVC is normal in size and collapses >50% with inspiration. PERICARDIAL EFFUSION The pericardium appears normal. There is no pleural effusion. <Conclusion> The left ventricular ejection fraction is moderate to markedly reduced, visually 30-35%. There is diffuse hypokinesis. Transmitral Doppler flow pattern is Grade I-abnormal relaxation pattern. There is mild concentric left ventricular hypertrophy. The left atrial volume index is mildly increased. Normal Doppler.
[2018-06-07] MEDS: MethylPREDNISolone 40 mg Vial IVP SCH ×3 (00:40→12:57)
[2018-06-07] MEDS: Albuterol-Ipratrop 3 mg / 0.5 (3 ml) UD INH SCH ×4 (03:28→15:51)
[2018-06-07 07:35] LABS: BASO % 0.2 % (0.0-2.0); HEMOGLOBIN 15.4 g/dL (12.0-18.0); LYMPH # 0.8 K/uL (1.0-4.3); LYMPH % 7.2 % (20.0-40.0); MEAN CELL VOLUME 84.3 fL (80.0-94.0); MEAN CORPUSCULAR HEMOGLOBIN 27.7 pg (27.0-31.0); MEAN CORPUSCULAR HGB CONC 32.8 g/dL (33.0-37.0); MEAN PLATELET VOLUME 10.6 fL (7.2-11.7); MONO # 0.3 K/uL (0.0-0.8); MONO % 2.8 % (0.0-10.0); NEUT # 9.8 K/uL (1.8-7.0); NEUT % 89.8 % (50.0-75.0); NRBC % 0.1 % (0.0-2.0); PLATELET COUNT 213 K/uL (130-400); RBC 5.57 Mil/uL (4.40-5.90); RED CELL DISTRIBUTION WIDTH 15.7 % (11.5-14.5)
[2018-06-07 07:41] LABS: WHITE BLOOD COUNT 10.9 K/uL (4.8-10.8)
[2018-06-07 08:09] LABS: ALB/GLOB RATIO 1.2 (1.0-2.1); ALBUMIN 3.9 g/dL (3.5-5.0); ALT/SGPT 143 U/L (21-72); AST/SGOT 54 U/L (17-59); BLOOD UREA NITROGEN 25 mg/dL (9-20); CALCIUM 9.8 mg/dl (8.6-10.4); GFR NON-AFRICAN AMERICAN > 60
--- NOTE | 2018-06-07 08:11 | CP.PCM.PN ---
Subjective - Date & Time of Evaluation Date of Evaluation: 06/07/18 Time of Evaluation: 08:10 - Subjective Subjective: started patient on clonidine yesterday. continue current medications and will schedule outpatient follow up Objective - Vital Signs/Intake and Output Vital Signs (last 24 hours): Temp Pulse Resp BP Pulse Ox 97.3 F L 76 20 163/98 H 98 06/06/18 23:53 06/07/18 07:40 06/06/18 23:53 06/06/18 23:53 06/06/18 23:53 Intake and Output: 06/07/18 06/07/18 06:59 18:59 Intake Total 450 Balance 450 - Medications Medications: Current Medications Albuterol/Ipratropium (Duoneb 3 Mg/0.5 Mg (3 Ml) Ud) 3 ml INH RQ4 [facility] Last Admin: 06/07/18 03:28 Dose: 3 ml Amlodipine Besylate (Norvasc) 10 mg PO DAILY [facility] Clonidine HCl (Catapres) 0.1 mg PO BID [facility] Last Admin: 06/06/18 18:23 Dose: 0.1 mg Dextrose (Dextrose 50% Inj) 0 ml IV STAT PRN; Protocol PRN Reason: Hypoglycemia Protocol Dextrose (Glutose 15) 15 gm PO ONCE PRN; Protocol PRN Reason: Hypoglycemia Protocol Furosemide (Lasix) 20 mg PO DAILY [facility] Last Admin: 06/06/18 09:48 Dose: 20 mg Glucagon (Glucagen Diagnostic Kit) 1 mg IM STAT PRN; Protocol PRN Reason: Hypoglycemia Protocol Hydralazine HCl (Apresoline) 100 mg PO BID [facility] Last Admin: 06/06/18 18:14 Dose: 100 mg Dextrose (Dextrose 5% In Water 1000 Ml) 1,000 mls @ 0 mls/hr IV .Q0M PRN; Protocol PRN Reason: Hypoglycemia Protocol Influenza Virus Vaccine (Fluzone Quad [id number]) 60 mcg IM .ONCE ONE Stop: 06/09/18 07:01 Insulin Aspart (Novolog) 0 unit SC ACHS [facility]; Protocol Last Admin: 06/06/18 22:15 Dose: 2 unit Losartan Potassium (Cozaar) 100 mg PO DAILY [facility] Last Admin: 06/06/18 09:47 Dose: 100 mg [facility] Last Admin: 06/06/18 17:55 Dose: 500 mg Methylprednisolone (Solu-Medrol) 40 mg IVP Q6 [facility] Last Admin: 06/07/18 05:20 Dose: 40 mg Metoprolol Succinate (Toprol Xl) 100 mg PO DAILY [facility] Last Admin: 06/06/18 09:47 Dose: 100 mg Pneumococcal Polyvalent Vaccine (Pneumovax 23 Vaccine) 0.5 ml IM .ONCE ONE Stop: 06/09/18 07:01 Potassium Chloride (K-Dur 20 Meq Er Tab) 20 meq PO DAILY [facility] Last Admin: 06/06/18 09:47 Dose: 20 meq Quetiapine Fumarate (Seroquel) 100 mg PO DAILY [facility] Last Admin: 06/06/18 09:48 Dose: 100 mg Quetiapine Fumarate (Seroquel) 400 mg PO HS [facility] Last Admin: 06/06/18 22:11 Dose: 400 mg Sertraline HCl (Zoloft) 200 mg PO DAILY [facility] Last Admin: 06/06/18 09:48 Dose: 200 mg Trazodone HCl (Desyrel) 50 mg PO DAILY [facility] Last Admin: 06/06/18 09:48 Dose: 50 mg - Labs Labs: 06/07/18 07:18 06/07/18 07:18 Assessment and Plan (1) Uncontrolled hypertension Status: Chronic (2) Hypercholesteremia Status: Chronic
[2018-06-07 08:49] LABS: BANDS 5 % (0-2); LYMPHOCYTE 7 % (20-40); MONOCYTE 1 % (0-10); NEUTROPHIL 87 % (50-75); PLATELET ESTIMATE NORMAL (NORMAL); TOTAL CELLS COUNTED 100
[2018-06-07] MEDS: (Novolog) Insulin Aspart, Recombinant 100 u/ml 10 ml vial SC SCH (08:58)
[2018-06-07] MEDS: Metoprolol Succinate 100 mg XL Tab PO SCH (08:59)
[2018-06-07] MEDS: Potassium Chloride 20 mEq ER Tab PO SCH (08:59)
[2018-06-07 09:10] VITALS: O2SAT 95
[2018-06-07] MEDS ORDERED: (Novolog) Insulin Aspart, Recombinant 100 u/ml 10 ml vial SC SCH ×2 (11:30)
--- NOTE | 2018-06-07 14:23 | CP.PCM.PN ---
Subjective - Date & Time of Evaluation Date of Evaluation: 06/07/18 Time of Evaluation: 14:20 - Subjective Subjective: Progress note. Attending: Dr. Ruth. Pt seen and examined at bedside. No acute distress. No fevers, chills, vomiting, diarrhea. Objective - Vital Signs/Intake and Output Vital Signs (last 24 hours): Temp Pulse Resp BP Pulse Ox 98 F 76 20 166/110 H 95 06/07/18 08:00 06/07/18 08:00 06/07/18 08:00 06/07/18 08:59 06/07/18 08:00 Intake and Output: 06/07/18 06/07/18 06:59 18:59 Intake Total 450 Balance 450 - Medications Medications: Current Medications Albuterol/Ipratropium (Duoneb 3 Mg/0.5 Mg (3 Ml) Ud) 3 ml INH RQ4 [facility]S [facility] Last Admin: 06/07/18 13:30 Dose: 3 ml Amlodipine Besylate (Norvasc) 10 mg PO DAILY [facility]S [facility] Last Admin: 06/07/18 14:07 Dose: 10 mg Clonidine HCl (Catapres) 0.1 mg PO BID [facility] 234 [facility]S [facility] Last Admin: 06/07/18 08:59 Dose: 0.1 mg Dextrose (Dextrose 50% Inj) 0 ml IV STAT PRN; Protocol PRN Reason: Hypoglycemia Protocol Dextrose (Glutose 15) 15 gm PO ONCE PRN; Protocol PRN Reason: Hypoglycemia Protocol Furosemide (Lasix) 20 mg PO DAILY [facility] 234 B[facility]S [facility] Last Admin: 06/07/18 08:59 Dose: 20 mg Glucagon (Glucagen Diagnostic Kit) 1 mg IM STAT PRN; Protocol PRN Reason: Hypoglycemia Protocol Hydralazine HCl (Apresoline) 100 mg PO BID [facility] 234 [facility]S [facility] Last Admin: 06/07/18 08:59 Dose: 100 mg Hydrochlorothiazide (Hydrodiuril) 25 mg PO DAILY [facility] 234 B[facility]S AT [facility] Dextrose (Dextrose 5% In Water 1000 Ml) 1,000 mls @ 0 mls/hr IV .Q0M PRN; Protocol PRN Reason: Hypoglycemia Protocol Influenza Virus Vaccine (Fluzone Quad [id number]) 60 mcg IM .ONCE ONE Stop: 06/09/18 07:01 Insulin Aspart (Novolog) 12 unit SC AC [facility] 234 BEDS [facility] Last Admin: 06/07/18 12:55 Dose: 12 unit Insulin Aspart (Novolog) 0 unit SC ACHS [facility] 234 BEDS AT [facility] Last Admin: 06/07/18 12:55 Dose: 3 unit Insulin Glargine (Lantus) 30 unit SC [facility] Losartan Potassium (Cozaar) 100 mg PO DAILY [facility] 234 BEDS [facility] Last Admin: 06/07/18 08:59 Dose: 100 mg Metformin HCl (Glucophage) 500 mg PO BIDCC [facility]S [facility]CLUDE 234 BEDS AT [facility] Last Admin: 06/07/18 08:59 Dose: 500 mg Methylprednisolone (Solu-Medrol) 40 mg IVP Q6 [facility] 234 [facility]S [facility] Last Admin: 06/07/18 12:57 Dose: 40 mg Metoprolol Succinate (Toprol Xl) 100 mg PO DAILY [facility] 234 [facility]S [facility] Last Admin: 06/07/18 08:59 Dose: 100 mg Pneumococcal Polyvalent Vaccine (Pneumovax 23 Vaccine) 0.5 ml IM .ONCE ONE Stop: 06/09/18 07:01 Potassium Chloride (K-Dur 20 Meq Er Tab) 20 meq PO DAILY [facility] 234 B[facility]S [facility] Last Admin: 06/07/18 08:59 Dose: 20 meq Quetiapine Fumarate (Seroquel) 100 mg PO DAILY [facility] 234 B[facility]S [facility] Last Admin: 06/07/18 08:59 Dose: 100 mg Quetiapine Fumarate (Seroquel) 400 mg PO [facility] Last Admin: 06/06/18 22:11 Dose: 400 mg Sertraline HCl (Zoloft) 200 mg PO DAILY [facility] 234 B[facility]S [facility] Last Admin: 06/07/18 08:59 Dose: 200 mg Trazodone HCl (Desyrel) 50 mg PO DAILY [facility] 234 [facility]S [facility] Last Admin: 06/07/18 08:59 Dose: 50 mg - Labs Labs: 06/07/18 07:18 06/07/18 07:18 - Constitutional Appears: Non-toxic, No Acute Distress - Head Exam Head Exam: ATRAUMATIC, NORMAL INSPECTION, NORMOCEPHALIC - Eye Exam Eye Exam: EOMI - ENT Exam ENT Exam: Mucous Membranes Moist - Neck Exam Neck Exam: Full ROM, Normal Inspection - Respiratory Exam Respiratory Exam: NORMAL BREATHING PATTERN. absent: Respiratory Distress - Cardiovascular Exam Cardiovascular Exam: +S1, +S2 - GI/Abdominal Exam GI & Abdominal Exam: Soft, Normal Bowel Sounds. absent: Tenderness - Extremities Exam Extremities Exam: Full ROM, Normal Inspection - Neurological Exam Neurological Exam: Alert, Awake, Oriented x3 - Psychiatric Exam Psychiatric exam: Flat Affect - Skin Skin Exam: Dry, Intact, Normal Color, Warm Assessment and Plan - Assessment and Plan (Free Text) Assessment: This is a 53 yo male with 1. [place] COPD exacerbation -duonebs RQ4 solumedrol 40 IV q 6 hrs -smoking cessation -urine drug screen negative 2. hypertensive urgency -ct scan negative -losartan 100 PO daily -continue hydralazine PO -continue norvasc 10 mg po, increased from previous 5 -adding clonidine .1 mg po bid as well 3. hx of heart failure -lasix 20 PO daily -toprol XL 100 PO daily -continue k dur daily -cardio consult. Dr. Batres. recs appreciated. 4. hx of DM -HGB a1c -lipid panel -metformin 500 BID -hypoglycemia protocol -insulin sliding scale 5. Hx of psychiatric illness/bipolar disorder -continue seroquel 100 po daily -continue seroquel at night 6. Hx of HLD -continue crestor 5 mg po hs>>> held due to lfts 7. hx of depression -continue zoloft 200 mg po daily 8. hx of sleep disorder -continue trazodone daily 8. GI/DVT ppx -scds -GI: not indicated discussed with Dr. Ruth.
[2018-06-07 15:37] VITALS: BP 118/70; PULSE 84; TEMP 97.7
--- NOTE | 2018-06-07 16:04 | PN ---
DATE: 06/07/2018 LOCATION: 557, bed A. SUBJECTIVE: This is a 53-year-old male seen and examined in rounds without significant clinical changes or reported active bleeding. The entire chart is reviewed including but not limited to the most recent lab and radiology study results. The patient still has intermittent period of mild abdominal pain, but no nausea and vomiting with period of elevated blood pressure as well as blood glucose level. Today's lab results showed leukocytosis of 10.9 with normal hemoglobin and hematocrit with increased BUN of 25, blood glucose level 315, ALT 143 with negative hepatitis profile. PHYSICAL EXAMINATION: GENERAL: A 53-year-old male, awake, alert, with period of mild shortness of breath. VITAL SIGNS: Afebrile with pulse of 70, respiratory rate 20 to 22, blood pressure 160/106. HEENT: Showed dry oral mucous membrane. Nonicteric sclerae. LUNGS: Few scattered crepitation. Decreased air entry at bases. HEART: Positive S1 and S2. ABDOMEN: Soft with mild generalized tenderness. No mass or organomegaly. No rebound tenderness or guarding. NEUROLOGICAL: No reported new neurological deficits, sensory, or motor. IMPRESSION: 1. Poorly-controlled diabetes mellitus with diabetic gastroparesis and the episode of nausea with dyspepsia recently. 2. Multiple past medical history including hypertension, congestive heart failure, hyperlipidemia with schizophrenia. 3. Cardiac arrhythmia status post pacemaker insertion. 4. Abnormal , that could be secondary to drug-induced. SUGGESTIONS: 1. Continue current management. 2. Cancer markers. 3. Ultrasound of the abdomen. 4. Further recommendations to follow. Morris Lisa MD
[2018-06-07] MEDS ORDERED: Influenza Vaccine 60 MCG/0.5 ML SYR (3 yr & up) IM ONE (16:27)
[2018-06-07] MEDS ORDERED: Pneumococcal 23-Valent Vaccine IM ONE (16:27)
[2018-06-07] MEDS ORDERED: (Lantus) Insulin Glargine, Recombinant SC SCH (22:00)
--- NOTE | 2018-06-07 22:29 | CON ---
DATE: 06/07/2018 ENDOCRINOLOGY CONSULTATION LOCATION: Room 557. HISTORY OF PRESENT ILLNESS: This is a 53-year-old male with known history of type 2 diabetes and hypertension, presenting here with progressive shortness of breath and acute exacerbation of COPD, and currently placed on IV steroid therapy with supervening hyperglycemic accelerations as noted thereof, and is being referred now for diabetic evaluation and management. PAST MEDICAL HISTORY: History of type 2 diabetes, currently on metformin taken as 500 mg b.i.d.; history of hypertension and dyslipidemia; history of cardiac tachyarrhythmias and currently has a defibrillator in place; history of previous admissions for congestive heart failure; history of schizoaffective disorder with schizophrenia, currently on psychotropic medications. FAMILY HISTORY: Positive for hypertension and diabetes. SOCIAL HISTORY: The patient smokes half a pack day for many years. Has a supportive family otherwise. REVIEW OF SYSTEMS: Admits to generalized body weakness with episodic bouts of dizziness and lightheadedness, worse on the day of admission. Also admits to visual blurring and right frontal headache. No chest pains, palpitations, or PNDs, but admits to productive cough, worsening over the last few weeks prior to admission with pleuritic chest pain and progressive shortness of breath especially on exertion. His oral intake has been variable with nausea, dyspepsia and vague upper abdominal pain. Also admits to marked polyuria, nocturia, and polydipsia. PHYSICAL EXAMINATION: GENERAL: An overweight male, in no apparent distress. VITAL SIGNS: With a blood pressure of 180/100, pulse of 100 per minute and regular, temperature 98, respirations 20. Height is 5 feet 8 inches. Weight is 226 pounds. HEENT: Head is normocephalic. Eyes are anicteric with pink conjunctivae. Funduscopy is not possible at this time. Ears, nose, and throat otherwise normal. NECK: Supple. Thyroid gland is normal in size. No carotid bruits or cervical adenopathy. CARDIOPULMONARY: Some adynamic precordium. S1 and S2 are rapid and regular. LUNGS: Scattered rhonchi as noted bilaterally. ABDOMEN: Obese, soft with positive bowel sounds. EXTREMITIES: No peripheral edema. Pulses are +2 bilaterally. LABORATORY DATA: His chemistries showed a BUN of 25, sodium 137, potassium 4.6, chloride 99, CO2 of 26, glucose 315, creatinine 0.9. His glucose levels have ranged from 289 to 306 and 401 mg/dL. His hemoglobin A1c is 8.4%. ASSESSMENT: This is a 53-year-old male with uncontrolled and decompensated type 2 insulin-requiring diabetes, presenting here with acute exacerbation of chronic obstructive pulmonary disease, currently on intravenous steroids, which as we know could increase insulin resistance and further empiric glucose tolerance thereof. PLAN OF MANAGEMENT: We will start the patient on a basal and bolus insulin drug combination just for inpatient diabetic management as ordered. We will start him with Novolog given as 12 units t.i.d. before meals to start today. We will modify the coverage scale to obviate hypoglycemia and detailed orders have been given. We will also add basal insulin with Lantus to be given 30 units subcu at bedtime daily as given. We will obtain serial chemistries and supplement accordingly as needed. We will follow and advise accordingly. We will continue his metformin given as 500 mg b.i.d. and consider addition of Januvia prior to discharge to optimize metabolic control. We will follow. Bertha Carr MD
[2018-06-09] MEDS ORDERED: Pneumococcal 23-Valent Vaccine IM ONE (07:00)
[2018-06-09] MEDS ORDERED: Influenza Vaccine 60 MCG/0.5 ML SYR (3 yr & up) IM ONE (07:00)
== END 2018-06-07 17:35 | disposition home or self-care (01) ==
LOC: C.ER 16:58 → C.9E 18:47 → C.5S 20:12
PROVIDERS: ADMIT Internal Medicine Pulmonary Disease; ATTEND Internal Medicine Pulmonary Disease
DX: R07.9 Chest pain, unspecified (principal); E78.00 Pure hypercholesterolemia, unspecified; E11.43 Type 2 diabetes mellitus with diabetic autonomic (poly)neuropathy; F17.200 Nicotine dependence, unspecified, uncomplicated; I11.0 Hypertensive heart disease with heart failure; I16.0 Hypertensive urgency; I50.9 Heart failure, unspecified; F25.9 Schizoaffective disorder, unspecified; J45.901 Unspecified asthma with (acute) exacerbation; F31.9 Bipolar disorder, unspecified; Z79.4 Long term (current) use of insulin; Z79.899 Other long term (current) drug therapy; Z80.2 Family history of malignant neoplasm of other respiratory and intrathoracic organs; Z83.3 Family history of diabetes mellitus; Z95.0 Presence of cardiac pacemaker; Z95.810 Presence of automatic (implantable) cardiac defibrillator
CPT/HCPCS: 36415; 70450; 71046; 80053; 80061; 80074; 80320; 80324; 80329; 80345; 80346; 80349; 80353; 80358; 80361; 81001; 82105; 82378; 82948; 83036; 83735; 83880; 83992; 84100; 84484; 85025; 86308; 87040; 90471; 90674; 90732; 93005; 93306; 94640; 94760; 96374; 99285; G0378; J2920; J2930

== ENCOUNTER 2018-08-14 07:56 | Inpatient (IN) | payer MEDICAID, OTHER ==
[2018-08-14 07:56] VITALS: BMI 30.1
[2018-08-14] MEDS ORDERED: Albuterol-Ipratrop 3 mg / 0.5 (3 ml) UD INH STA ×2 (08:43→10:45)
--- NOTE | 2018-08-14 08:53 | C.PDOC ---
History Of Present Illness Patient is a 53 year old male with a PMHx of CHF, aicd, diabetes, psychiatric disorder, HTN, asthma, presents to the ED complaining of CP, SOB, and chest tightness. Patient states that he ran out of his medications one week ago. Adry ent denies any fever, chills, cough, headache, nausea, vomiting, or diaphoresis. Time Seen by Provider: 08/14/18 08:27 Chief Complaint (Nursing): Shortness Of Breath History Per: Patient History/Exam Limitations: no limitations Onset/Duration Of Symptoms: Days Current Symptoms Are (Timing): Still Present Initiating Event: Out Of Medications Associated Symptoms: Chest Pain. denies: Fever, Chills, Bloody Cough, Productive Cough Recent travel outside of the [place]: No Additional History Per: Patient Past Medical History Reviewed: Historical Data, Nursing Documentation, Vital Signs Vital Signs: Last Vital Signs Temp 98.2 F 08/14/18 07:58 Pulse 89 08/14/18 07:58 Resp 21 08/14/18 07:58 BP 205/135 H 08/14/18 07:58 Pulse Ox 98 08/14/18 07:58 - Medical History PMH: Asthma, CHF, HTN, Hypercholesterolemia, Schizophrenia Denies: HIV, Chronic Kidney Disease, Seizures, Sexually Transmitted Disease Surgical History: Pacemaker (w/ defibrillator) - [facility] Procedures DETOXIFICATION SERVICES FOR SUBSTANCE ABUSE TREATMENT (01/26/16) DIPHTHERIA TOXOID ADMIN (01/01/14) INSERTION OF ENDOTRACHEAL AIRWAY INTO TRACHEA, VIA OPENING (01/26/16) RESPIRATORY VENTILATION, GREATER THAN 96 CONSECUTIVE HOURS (01/26/16) TETANUS TOXOID ADMINIST (01/01/14) Family History: States: Unknown Family Hx - Social History Hx Tobacco Use: Yes Hx Alcohol Use: Yes Hx Substance Use: No - Immunization History Hx Tetanus Toxoid Vaccination: No Hx Influenza Vaccination: Yes Hx Pneumococcal Vaccination: Yes Review Of Systems Constitutional: Negative for: Fever, Chills, Sweats Cardiovascular: Positive for: Chest Pain Respiratory: Positive for: Shortness of Breath. Negative for: Cough Gastrointestinal: Negative for: Nausea, Vomiting Neurological: Negative for: Headache Physical Exam - Physical Exam Appears: Well, No Acute Distress Skin: Normal Color, Warm, Dry, No Rash Head: Atraumatic, Normacephalic Eye(s): bilateral: Normal Inspection, PERRL Oral Mucosa: Moist Neck: Normal ROM, Supple Cardiovascular: Rhythm Regular, No Murmur Respiratory: Wheezing (scattered wheeze with bibasilar crackles) Gastrointestinal/Abdominal: Bowel Sounds (normoactive), Soft, No Tenderness, No Guarding, No Rebound Back: No CVA Tenderness Extremity: Pedal Edema (+1 bilateral pitting edema), No Calf Tenderness Neurological/Psych: Oriented x3, Normal Speech, Normal Cognition ED Course And Treatment - Laboratory Results Result Diagrams: 08/14/18 09:00 08/14/18 09:00 ECG: Interpreted By Me, Viewed By Me ECG Rhythm: Sinus Rhythm Interpretation Of ECG: Prolonged QT Rate From EC O2 Sat by Pulse Oximetry: 98 (on RA) Pulse Ox Interpretation: Normal - Other Rad CXR X-Ray: Viewed By Me, Read By Radiologist Interpretation: IMPRESSION: No active disease. AICD noted. Medical Decision Making Medical Decision Making: Plan: EKG Bloodwork CXR Urinalysis Peak Flow Duoneb 3mg/0.5mg UD Reassessment: 0951 Patient has decreased wheezing s/p nebulizer treatment. Blood pressure repeated (169/115). Disposition Discussed With : Real Davis Doctor Will See Patient In The: Hospital - Disposition Disposition: HOSPITALIZED Disposition Time: 11:48 Condition: FAIR - Clinical Impression Clinical Impression: Uncontrolled hypertension, Asthma, Chest tightness - PA / [employer] / Resident Statement MD/DO has reviewed & agrees with the documentation as recorded. - Scribe Statement The provider has reviewed the documentation as recorded by the Karl Rowe All medical record entries made by the Miriamibdavid were at my direction and personally dictated by me. I have reviewed the chart and agree that the record accurately reflects my personal performance of the history, physical exam, medical decision making, and the department course for this patient. I have also personally directed, reviewed, and agree with the discharge instructions and disposition.
[2018-08-14] MEDS ORDERED: Albuterol-Ipratrop 3 mg / 0.5 (3 ml) UD ONE ×2 (08:59→11:02)
[2018-08-14 09:05] LABS: BASO % 0.4 % (0.0-2.0); EOS # 0.2 K/uL (0.0-0.7); EOS % 2.3 % (0.0-4.0); HEMOGLOBIN 15.2 g/dL (12.0-18.0); LYMPH # 1.3 K/uL (1.0-4.3); LYMPH % 19.2 % (20.0-40.0); MEAN CELL VOLUME 84.6 fL (80.0-94.0); MEAN CORPUSCULAR HEMOGLOBIN 27.5 pg (27.0-31.0); MEAN CORPUSCULAR HGB CONC 32.5 g/dL (33.0-37.0); MEAN PLATELET VOLUME 10.6 fL (7.2-11.7); MONO # 0.7 K/uL (0.0-0.8); MONO % 10.5 % (0.0-10.0); NEUT # 4.7 K/uL (1.8-7.0); NEUT % 67.6 % (50.0-75.0); NRBC % 0.1 % (0.0-2.0); RBC 5.52 Mil/uL (4.40-5.90); RED CELL DISTRIBUTION WIDTH 15.1 % (11.5-14.5); WHITE BLOOD COUNT 6.9 K/uL (4.8-10.8)
[2018-08-14 09:18] LABS: ALB/GLOB RATIO 1.2 (1.0-2.1); ALT/SGPT 106 U/L (21-72); AST/SGOT 65 U/L (17-59); BLOOD UREA NITROGEN 14 mg/dL (9-20); CALCIUM 9.5 mg/dl (8.6-10.4); GFR NON-AFRICAN AMERICAN > 60
[2018-08-14 09:26] LABS: GRANULAR CAST 4 /lpf (0-1); SQUAMOUS EPITHIAL < 1 /hpf (0-5); URINE BILIRUBIN NEGATIVE (NEGATIVE); URINE BLOOD NEGATIVE (NEGATIVE); URINE CLARITY Clear (Clear); URINE COLOR Yellow (YELLOW); URINE GLUCOSE (UA) NORMAL (Normal); URINE LEUKOCYTE ESTERASE NEG Leu/uL (Negative); URINE PROTEIN 3+ mg/dL (NEGATIVE)
[2018-08-14 09:29] LABS: B-TYPE NATRIURETIC PEPTIDE 765 pg/mL (0-900)
[2018-08-14 09:48] LABS: BARBITURATES, UR NEGATIVE (NEGATIVE); BENZODIAZEPINES, UR NEGATIVE (NEGATIVE); OPIATES, UR NEGATIVE (NEGATIVE); PHENCYCLIDINE, UR NEGATIVE (NEGATIVE)
--- NOTE | 2018-08-14 10:32 | RAD ---
Date of service: 08/14/2018 HISTORY: chest pain COMPARISON: No prior. TECHNIQUE: Chest PA and lateral FINDINGS: LUNGS: No active pulmonary disease. PLEURA: No significant pleural effusion identified. No pneumothorax apparent. CARDIOVASCULAR: No aortic atherosclerotic calcification present. Normal cardiac size. AICD noted. OSSEOUS STRUCTURES: No significant abnormalities. VISUALIZED UPPER ABDOMEN: Normal. OTHER FINDINGS: None. IMPRESSION: No active disease. AICD noted.
--- NOTE | 2018-08-14 12:29 | CP.PCM.HP ---
History of Present Illness - History of Present Illness History of Present Illness: Patient is a 53 year old male with a PMHx of CHF, aicd, diabetes, psychiatric disorder, HTN, asthma, presents to the ED complaining of CP, SOB, and chest tightness. Patient states that he ran out of his medications one week ago. Patient denies any fever, chills, cough, headache, nausea, vomiting, or diaphoresis. Patient had an echocardiogram done last year which showed ejection fraction of 35%. Patient has multiple psychiatric visits on the previous year Review of Systems - Review of Systems All systems: reviewed and no additional remarkable complaints except (wheezing shortness of breath) Past Patient History - Infectious Disease Hx of Infectious Diseases: None - Tetanus Immunizations Tetanus Immunization: Unknown - Past Medical History & Family History Past Medical History?: Yes - Past Social History Smoking Status: Light Smoker < 10 Cigarettes Daily - CARDIAC Hx Congestive Heart Failure: Yes Hx Hypercholesterolemia: Yes Hx Hypertension: Yes Hx Pacemaker: Yes (w/ defibrillator) - PULMONARY Hx Asthma: Yes - NEUROLOGICAL Hx Seizures: No - HEENT Hx HEENT Problems: No - RENAL Hx Chronic Kidney Disease: No - ENDOCRINE/METABOLIC Hx Endocrine Disorders: Yes Hx Diabetes Mellitus Type 2: No (denied 08/14/18) - HEMATOLOGICAL/ONCOLOGICAL Hx Human Immunodeficiency Virus (HIV): No - INTEGUMENTARY Hx Dermatological Problems: No - MUSCULOSKELETAL/RHEUMATOLOGICAL Hx Musculoskeletal Disorders: No Hx Falls: No - GASTROINTESTINAL Hx Gastrointestinal Disorders: No - GENITOURINARY/GYNECOLOGICAL Hx Sexually Transmitted Disorders: No - PSYCHIATRIC Hx Schizophrenia: Yes Hx Substance Use: No - SURGICAL HISTORY Hx Surgeries: Yes Hx Cardiac Catheterization: Yes - ANESTHESIA Hx Anesthesia: Yes Hx Anesthesia Reactions: No Hx Malignant Hyperthermia: No Meds Allergies/Adverse Reactions: Allergies Allergy/AdvReac Type Severity Reaction Status Date / Time No Known Allergies Allergy Verified 08/14/18 08:16 Physical Exam - Constitutional Appears: Well - Head Exam Head Exam: ATRAUMATIC, NORMAL INSPECTION, NORMOCEPHALIC - Eye Exam Eye Exam: EOMI, Normal appearance, PERRL Pupil Exam: NORMAL ACCOMODATION, PERRL - ENT Exam ENT Exam: Mucous Membranes Moist, Normal Exam - Neck Exam Neck exam: Positive for: Normal Inspection - Respiratory Exam Respiratory Exam: Prolonged Expiratory Phase, Rhonchi - Cardiovascular Exam Cardiovascular Exam: +S1, +S2, +S4 - GI/Abdominal Exam GI & Abdominal Exam: Normal Bowel Sounds, Soft. absent: Tenderness - Extremities Exam Extremities exam: Positive for: normal inspection - Back Exam Back exam: NORMAL INSPECTION Results - Vital Signs Recent Vital Signs: Last Vital Signs Temp 98.3 F 08/14/18 12:03 Pulse 78 08/14/18 12:03 Resp 21 08/14/18 12:03 BP 196/114 H 08/14/18 12:03 Pulse Ox 100 08/14/18 12:03 - Labs Result Diagrams: 08/14/18 09:00 08/14/18 09:00 Labs: Laboratory Results - last 24 hr 08/14/18 08/14/18 08/14/18 09:00 09:00 09:18 WBC 6.9 RBC 5.52 Hgb 15.2 Hct 46.7 MCV 84.6 MCH 27.5 MCHC 32.5 L RDW 15.1 H Plt Count 176 MPV 10.6 Neut % (Auto) 67.6 Lymph % (Auto) 19.2 L [place] % (Auto) 10.5 H Eos % (Auto) 2.3 Baso % (Auto) 0.4 Neut # (Auto) 4.7 Lymph # (Auto) 1.3 [place] # (Auto) 0.7 Eos # (Auto) 0.2 Baso # (Auto) 0.0 Sodium 136 Potassium 3.7 Chloride 100 Carbon Dioxide 31 H Anion Gap 9 L BUN 14 Creatinine 1.0 Est GFR ( Amer) > 60 Est GFR (Non-Af Amer) > 60 Random Glucose 127 H D Calcium 9.5 Total Bilirubin 2.0 H AST 65 H D ALT 106 H D Alkaline Phosphatase 60 Troponin I 0.0480 NT-Pro-B Natriuret Pep 765 Total Protein 7.2 Albumin 4.0 Globulin 3.2 Albumin/Globulin Ratio 1.2 Urine Color Yellow Urine Clarity Clear Urine pH 6.0 Ur Specific [place] 1.014 Urine Protein 3+ H Urine Glucose (UA) Normal Urine Ketones Trace Urine Blood Negative Urine Nitrate Negative Urine Bilirubin Negative Urine Urobilinogen 4.0 Ur Leukocyte Esterase Neg Urine WBC (Auto) 1 Urine RBC (Auto) 1 Ur Squamous Epith Cells < 1 Hyaline Casts 6-10 H Granular Casts (Auto) 4 Urine Opiates Screen Urine Methadone Screen Ur Barbiturates Screen Ur Phencyclidine Scrn Ur Amphetamines Screen U Benzodiazepines Scrn U Oth Cocaine Metabols U Cannabinoids Screen 08/14/18 09:18 WBC RBC Hgb Hct MCV MCH MCHC RDW Plt Count MPV Neut % (Auto) Lymph % (Auto) [place] % (Auto) Eos % (Auto) Baso % (Auto) Neut # (Auto) Lymph # (Auto) [place] # (Auto) Eos # (Auto) Baso # (Auto) Sodium Potassium Chloride Carbon Dioxide Anion Gap BUN Creatinine Est GFR ( Amer) Est GFR (Non-Af Amer) Random Glucose Calcium Total Bilirubin AST ALT Alkaline Phosphatase Troponin I NT-Pro-B Natriuret Pep Total Protein Albumin Globulin Albumin/Globulin Ratio Urine Color Urine Clarity Urine pH Ur Specific [place] Urine Protein Urine Glucose (UA) Urine Ketones Urine Blood Urine Nitrate Urine Bilirubin Urine Urobilinogen Ur Leukocyte Esterase Urine WBC (Auto) Urine RBC (Auto) Ur Squamous Epith Cells Hyaline Casts Granular Casts (Auto) Urine Opiates Screen Negative Urine Methadone Screen Negative Ur Barbiturates Screen Negative Ur Phencyclidine Scrn Negative Ur Amphetamines Screen Negative U Benzodiazepines Scrn Negative U Oth Cocaine Metabols Positive H U Cannabinoids Screen Negative Assessment & Plan (1) Asthma Status: Acute (2) Uncontrolled hypertension Status: Chronic (3) Adjustment reaction with anxiety and depression Status: Acute
[2018-08-14] MEDS: Metoprolol Succinate 100 mg XL Tab PO SCH (13:03)
[2018-08-14 15:51] VITALS: RESP 20
[2018-08-14] MEDS: Albuterol-Ipratrop 3 mg / 0.5 (3 ml) UD INH SCH ×2 (19:40→23:33)
[2018-08-15] MEDS: Albuterol-Ipratrop 3 mg / 0.5 (3 ml) UD INH SCH ×6 (04:45→23:54)
[2018-08-15] MEDS: Metoprolol Succinate 100 mg XL Tab PO SCH ×2 (07:53→09:08)
[2018-08-15] MEDS: Enoxaparin 40 mg Syringe SC SCH (09:28)
--- NOTE | 2018-08-15 11:30 | CP.PCM.PN ---
Subjective - Date & Time of Evaluation Date of Evaluation: 08/15/18 Time of Evaluation: 11:30 - Subjective Subjective: Patient continues to have systolic and diastolic hypertension Clonidine has been added Decreased wheezing continue nebulizer Objective - Vital Signs/Intake and Output Vital Signs (last 24 hours): Temp Pulse Resp BP Pulse Ox 98.1 F 80 20 181/108 H 95 08/15/18 07:00 08/15/18 07:00 08/15/18 07:00 08/15/18 09:27 08/15/18 07:00 - Medications Medications: Current Medications Albuterol/Ipratropium (Duoneb 3 Mg/0.5 Mg (3 Ml) Ud) 3 ml INH RQ4 [facility] Last Admin: 08/15/18 07:50 Dose: 3 ml Amlodipine Besylate (Norvasc) 10 mg PO DAILY [facility] Last Admin: 08/15/18 09:08 Dose: Not Given Aspirin (Aspirin Chewable) 81 mg PO DAILY [facility] Last Admin: 08/15/18 09:27 Dose: 81 mg Clonidine HCl (Catapres) 0.2 mg PO BID [facility] Enoxaparin Sodium (Lovenox) 40 mg SC DAILY [facility] Last Admin: 08/15/18 09:28 Dose: 40 mg Furosemide (Lasix) 20 mg PO DAILY [facility] Last Admin: 08/15/18 09:27 Dose: 20 mg Losartan Potassium (Cozaar) 100 mg PO DAILY [facility] Last Admin: 08/15/18 09:08 Dose: Not Given [facility] Last Admin: 08/15/18 09:26 Dose: 500 mg Metoprolol Succinate (Toprol Xl) 100 mg PO DAILY [facility] Last Admin: 08/15/18 09:08 Dose: Not Given Sertraline HCl (Zoloft) 200 mg PO DAILY [facility] Last Admin: 08/15/18 09:27 Dose: 200 mg Trazodone HCl (Desyrel) 50 mg PO DAILY [facility] Last Admin: 08/15/18 09:27 Dose: 50 mg - Labs Labs: 08/14/18 09:00 08/14/18 09:00 Assessment and Plan (1) Asthma Status: Acute (2) Uncontrolled hypertension Status: Chronic (3) Adjustment reaction with anxiety and depression Status: Acute
[2018-08-16] MEDS: Albuterol-Ipratrop 3 mg / 0.5 (3 ml) UD INH SCH ×6 (03:12→23:47)
--- NOTE | 2018-08-16 05:58 | CARD ---
APPROVED REPORT Date of service: 08/14/2018 EKG Measurement Heart [id number] <Conclusion> Normal sinus rhythm Prolonged QT Abnormal ECG
[2018-08-16] MEDS: Metoprolol Succinate 100 mg XL Tab PO SCH (09:41)
[2018-08-16] MEDS: Enoxaparin 40 mg Syringe SC SCH (09:42)
--- NOTE | 2018-08-16 11:51 | CP.PCM.PN ---
Subjective - Date & Time of Evaluation Date of Evaluation: 08/16/18 Time of Evaluation: 11:51 - Subjective Subjective: Patient continues to have systolic and diastolic hypertension Clonidine has been added Decreased wheezing continue nebulizer Objective - Vital Signs/Intake and Output Vital Signs (last 24 hours): Temp Pulse Resp BP Pulse Ox 98.1 F 82 20 155/89 H 94 L 08/16/18 08:29 08/16/18 08:29 08/16/18 08:29 08/16/18 09:40 08/16/18 08:29 - Medications Medications: Current Medications Albuterol/Ipratropium (Duoneb 3 Mg/0.5 Mg (3 Ml) Ud) 3 ml INH RQ4 [facility] Last Admin: 08/16/18 07:34 Dose: 3 ml Amlodipine Besylate (Norvasc) 10 mg PO DAILY [facility] Last Admin: 08/16/18 09:40 Dose: Not Given Aspirin (Aspirin Chewable) 81 mg PO DAILY [facility] Last Admin: 08/16/18 09:41 Dose: 81 mg Clonidine HCl (Catapres) 0.2 mg PO BID [facility] Last Admin: 08/16/18 09:39 Dose: Not Given Enoxaparin Sodium (Lovenox) 40 mg SC DAILY [facility] Last Admin: 08/16/18 09:42 Dose: 40 mg Furosemide (Lasix) 20 mg PO DAILY [facility] Last Admin: 08/16/18 09:40 Dose: 20 mg Losartan Potassium (Cozaar) 100 mg PO DAILY [facility] Last Admin: 08/16/18 09:40 Dose: Not Given [facility] Last Admin: 08/16/18 08:26 Dose: 500 mg Metoprolol Succinate (Toprol Xl) 100 mg PO DAILY [facility] Last Admin: 08/16/18 09:41 Dose: 100 mg Sertraline HCl (Zoloft) 200 mg PO DAILY [facility] Last Admin: 08/16/18 09:41 Dose: 200 mg Trazodone HCl (Desyrel) 50 mg PO DAILY [facility] Last Admin: 08/16/18 09:40 Dose: 50 mg - Labs Labs: 08/14/18 09:00 08/14/18 09:00 Assessment and Plan (1) Asthma Status: Acute (2) Uncontrolled hypertension Status: Chronic (3) Adjustment reaction with anxiety and depression Status: Acute
[2018-08-16] MEDS: guaiFENesin 200 mg/10 ml Syrup UD PO PRN (14:51)
[2018-08-17] MEDS: Albuterol-Ipratrop 3 mg / 0.5 (3 ml) UD INH SCH ×5 (03:16→19:56)
[2018-08-17] MEDS: guaiFENesin 200 mg/10 ml Syrup UD PO PRN (08:55)
[2018-08-17] MEDS: Metoprolol Succinate 100 mg XL Tab PO SCH (09:48)
[2018-08-17] MEDS: Enoxaparin 40 mg Syringe SC SCH (09:49)
--- NOTE | 2018-08-17 11:27 | CP.PCM.PN ---
Subjective - Date & Time of Evaluation Date of Evaluation: 08/17/18 Time of Evaluation: 11:26 - Subjective Subjective: patient still has diastolic hypertension especially in the morning hours. Will add labetalol 200 mg twice a day Lungs are getting better nebulizer. Objective - Vital Signs/Intake and Output Vital Signs (last 24 hours): Temp Pulse Resp BP Pulse Ox 98.1 F 75 20 179/118 H 96 08/17/18 08:36 08/17/18 08:36 08/17/18 08:36 08/17/18 09:48 08/17/18 08:36 - Medications Medications: Current Medications Albuterol/Ipratropium (Duoneb 3 Mg/0.5 Mg (3 Ml) Ud) 3 ml INH RQ4 [facility] Last Admin: 08/17/18 11:04 Dose: Not Given Amlodipine Besylate (Norvasc) 10 mg PO DAILY [facility] Last Admin: 08/17/18 09:48 Dose: 10 mg Aspirin (Aspirin Chewable) 81 mg PO DAILY [facility] Last Admin: 08/17/18 09:47 Dose: 81 mg Clonidine HCl (Catapres) 0.2 mg PO BID [facility] Last Admin: 08/17/18 09:48 Dose: 0.2 mg Enoxaparin Sodium (Lovenox) 40 mg SC DAILY [facility] Last Admin: 08/17/18 09:49 Dose: 40 mg Furosemide (Lasix) 20 mg PO DAILY [facility] Last Admin: 08/17/18 09:48 Dose: 20 mg Guaifenesin (Robitussin) 200 mg PO Q4H PRN PRN Reason: Cough and congestion Last Admin: 08/17/18 08:55 Dose: 200 mg Losartan Potassium (Cozaar) 100 mg PO DAILY [facility] Last Admin: 08/17/18 09:48 Dose: 100 mg [facility]) [facility] Last Admin: 08/17/18 08:43 Dose: 500 mg Metoprolol Succinate (Toprol Xl) 100 mg PO DAILY [facility] Last Admin: 08/17/18 09:48 Dose: 100 mg Sertraline HCl (Zoloft) 200 mg PO DAILY [facility] Last Admin: 08/17/18 09:48 Dose: 200 mg Trazodone HCl (Desyrel) 50 mg PO DAILY [facility] Last Admin: 08/17/18 09:48 Dose: 50 mg - Labs Labs: 08/14/18 09:00 08/14/18 09:00 Assessment and Plan (1) Asthma Status: Acute (2) Uncontrolled hypertension Status: Chronic (3) Adjustment reaction with anxiety and depression Status: Acute
[2018-08-18] MEDS: Albuterol-Ipratrop 3 mg / 0.5 (3 ml) UD INH SCH ×7 (01:28→23:43)
[2018-08-18] MEDS: Metoprolol Succinate 100 mg XL Tab PO SCH (09:40)
[2018-08-18] MEDS: Enoxaparin 40 mg Syringe SC SCH (09:40)
--- NOTE | 2018-08-18 10:40 | RAD ---
Date of service: 08/17/2018 HISTORY: chf COMPARISON: Chest radiographs 08/14/2018. FINDINGS: LUNGS: Mild scattered patchy density seen the bilateral mid to inferior lung zones suspicious for developing pneumonia. PLEURA: No significant pleural effusion identified, no pneumothorax apparent. CARDIOVASCULAR: No aortic atherosclerotic calcification present. Cardiomegaly appears stable. No pulmonary vascular congestion. AICD/pacemaker reiterated. OSSEOUS STRUCTURES: No significant abnormalities. VISUALIZED UPPER ABDOMEN: Normal. OTHER FINDINGS: None. IMPRESSION: Developing mid to inferior pulmonary infiltrates bilaterally. No pleural effusion or pneumothorax. No pulmonary vascular congestion. Cardiomegaly stable.
--- NOTE | 2018-08-18 14:37 | CP.PCM.PN ---
Subjective - Date & Time of Evaluation Date of Evaluation: 08/18/18 Time of Evaluation: 14:36 - Subjective Subjective: Patient is complaining of atypical chest pain cough and expectoration Chest x-ray showed early bilateral lower infiltrate pneumonia We will advance of pain continue present medication blood pressures responded Objective - Vital Signs/Intake and Output Vital Signs (last 24 hours): Temp Pulse Resp BP Pulse Ox 98.0 F 59 L 20 159/97 H 95 08/18/18 08:00 08/18/18 08:00 08/18/18 08:00 08/18/18 09:40 08/18/18 13:00 - Medications Medications: Current Medications Albuterol/Ipratropium (Duoneb 3 Mg/0.5 Mg (3 Ml) Ud) 3 ml INH RQ4 [facility] Last Admin: 08/18/18 13:41 Dose: 3 ml Amlodipine Besylate (Norvasc) 10 mg PO DAILY [facility] Last Admin: 08/18/18 09:40 Dose: 10 mg Aspirin (Aspirin Chewable) 81 mg PO DAILY [facility] Last Admin: 08/18/18 09:40 Dose: 81 mg Clonidine HCl (Catapres) 0.2 mg PO BID [facility] Last Admin: 08/18/18 09:40 Dose: 0.2 mg Enoxaparin Sodium (Lovenox) 40 mg SC DAILY [facility] Last Admin: 08/18/18 09:40 Dose: 40 mg Furosemide (Lasix) 20 mg PO DAILY [facility] Last Admin: 08/18/18 09:40 Dose: 20 mg Guaifenesin (Robitussin) 200 mg PO Q4H PRN PRN Reason: Cough and congestion Last Admin: 08/17/18 08:55 Dose: 200 mg Ceftriaxone Sodium 1 gm/ (Sodium Chloride) 100 mls @ 100 mls/hr IVPB DAILY [facility]; Protocol Labetalol HCl (Trandate) 100 mg PO BID [facility] Last Admin: 08/18/18 09:41 Dose: 100 mg Losartan Potassium (Cozaar) 100 mg PO DAILY [facility] Last Admin: 08/18/18 09:46 Dose: 100 mg [facility] Last Admin: 08/18/18 09:40 Dose: 500 mg Metoprolol Succinate (Toprol Xl) 100 mg PO DAILY [facility] Last Admin: 08/18/18 09:40 Dose: 100 mg Sertraline HCl (Zoloft) 200 mg PO DAILY [facility] Last Admin: 08/18/18 09:40 Dose: 200 mg Trazodone HCl (Desyrel) 50 mg PO DAILY [facility] Last Admin: 08/18/18 09:40 Dose: 50 mg - Labs Labs: 08/14/18 09:00 08/14/18 09:00 Assessment and Plan (1) Asthma Status: Acute (2) Uncontrolled hypertension Status: Chronic (3) Adjustment reaction with anxiety and depression Status: Acute
[2018-08-19] MEDS: Albuterol-Ipratrop 3 mg / 0.5 (3 ml) UD INH SCH ×4 (03:08→16:35)
[2018-08-19] MEDS: Metoprolol Succinate 100 mg XL Tab PO SCH (09:19)
[2018-08-19] MEDS: Enoxaparin 40 mg Syringe SC SCH (09:20)
[2018-08-19 14:22] LABS: BASO % 0.5 % (0.0-2.0); EOS # 0.2 K/uL (0.0-0.7); EOS % 2.7 % (0.0-4.0); LYMPH # 1.9 K/uL (1.0-4.3); LYMPH % 25.6 % (20.0-40.0); MEAN CELL VOLUME 84.8 fL (80.0-94.0); MEAN CORPUSCULAR HEMOGLOBIN 27.6 pg (27.0-31.0); MEAN CORPUSCULAR HGB CONC 32.6 g/dL (33.0-37.0); MONO # 0.6 K/uL (0.0-0.8); MONO % 8.4 % (0.0-10.0); NEUT # 4.7 K/uL (1.8-7.0); NEUT % 62.8 % (50.0-75.0); RBC 5.44 Mil/uL (4.40-5.90); RED CELL DISTRIBUTION WIDTH 14.8 % (11.5-14.5); WHITE BLOOD COUNT 7.5 K/uL (4.8-10.8)
--- NOTE | 2018-08-19 14:37 | CP.PCM.PN ---
Subjective - Date & Time of Evaluation Date of Evaluation: 08/19/18 Time of Evaluation: 14:37 - Subjective Subjective: Patient is complaining of atypical chest pain cough and expectoration Chest x-ray showed early bilateral lower infiltrate pneumonia On iv ab BP better Objective - Vital Signs/Intake and Output Vital Signs (last 24 hours): Temp Pulse Resp BP Pulse Ox 98.1 F 59 L 20 163/106 H 96 08/19/18 07:05 08/19/18 07:05 08/19/18 07:05 08/19/18 09:17 08/19/18 07:05 - Medications Medications: Current Medications Albuterol/Ipratropium (Duoneb 3 Mg/0.5 Mg (3 Ml) Ud) 3 ml INH RQ4 [facility] Last Admin: 08/19/18 11:11 Dose: 3 ml Amlodipine Besylate (Norvasc) 10 mg PO DAILY [facility] Last Admin: 08/19/18 09:19 Dose: 10 mg Aspirin (Aspirin Chewable) 81 mg PO DAILY [facility] Last Admin: 08/19/18 09:17 Dose: 81 mg Clonidine HCl (Catapres) 0.2 mg PO BID [facility] Last Admin: 08/19/18 09:19 Dose: 0.2 mg Enoxaparin Sodium (Lovenox) 40 mg SC DAILY [facility] Last Admin: 08/19/18 09:20 Dose: 40 mg Furosemide (Lasix) 20 mg PO DAILY [facility] Last Admin: 08/19/18 09:17 Dose: 20 mg Guaifenesin (Robitussin) 200 mg PO Q4H PRN PRN Reason: Cough and congestion Last Admin: 08/17/18 08:55 Dose: 200 mg Ceftriaxone Sodium 1 gm/ (Sodium Chloride) 100 mls @ 100 mls/hr IVPB Q24H [facility]; Protocol Last Admin: 08/18/18 16:56 Dose: 100 mls/hr Labetalol HCl (Trandate) 100 mg PO BID [facility] Last Admin: 08/19/18 09:18 Dose: 100 mg Losartan Potassium (Cozaar) 100 mg PO DAILY [facility] Last Admin: 08/19/18 09:18 Dose: 100 mg [facility] Last Admin: 08/19/18 09:20 Dose: 500 mg Metoprolol Succinate (Toprol Xl) 100 mg PO DAILY [facility] Last Admin: 08/19/18 09:19 Dose: 100 mg Sertraline HCl (Zoloft) 200 mg PO DAILY [facility] Last Admin: 08/19/18 09:16 Dose: 200 mg Trazodone HCl (Desyrel) 50 mg PO DAILY [facility] Last Admin: 08/19/18 09:18 Dose: 50 mg - Labs Labs: 08/19/18 14:11 08/14/18 09:00 Assessment and Plan (1) Asthma Status: Acute (2) Uncontrolled hypertension Status: Chronic (3) Adjustment reaction with anxiety and depression Status: Acute
[2018-08-19 14:40] LABS: ALB/GLOB RATIO 1.3 (1.0-2.1); ALBUMIN 3.9 g/dL (3.5-5.0); ALT/SGPT 223 U/L (21-72); AST/SGOT 124 U/L (17-59); BLOOD UREA NITROGEN 19 mg/dL (9-20); CALCIUM 9.2 mg/dl (8.6-10.4); GFR NON-AFRICAN AMERICAN > 60
[2018-08-19] MEDS: MethylPREDNISolone 40 mg Vial IVP SCH (22:24)
[2018-08-20] MEDS: MethylPREDNISolone 40 mg Vial IVP SCH ×3 (07:31→21:46)
[2018-08-20] MEDS: Enoxaparin 40 mg Syringe SC SCH (09:16)
[2018-08-20] MEDS: Metoprolol Succinate 100 mg XL Tab PO SCH (09:17)
--- NOTE | 2018-08-20 12:42 | CP.PCM.PN ---
Subjective - Date & Time of Evaluation Date of Evaluation: 08/20/18 Time of Evaluation: 12:40 - Subjective Subjective: PT NOT IMPROVING WITH WHEEZING BP IS STABLE WILL ADD IV SOLUMEDROL DRYNESS IN MOUTH SEC TO CLONIDINE AM DIASTOLIC BP Objective - Vital Signs/Intake and Output Vital Signs (last 24 hours): Temp Pulse Resp BP Pulse Ox 98.5 F 60 20 155/76 H 95 08/20/18 07:15 08/20/18 07:15 08/20/18 07:15 08/20/18 09:16 08/20/18 07:15 - Medications Medications: Current Medications Amlodipine Besylate (Norvasc) 10 mg PO DAILY [facility] Last Admin: 08/20/18 09:17 Dose: 10 mg Aspirin (Aspirin Chewable) 81 mg PO DAILY [facility] Last Admin: 08/20/18 09:16 Dose: 81 mg Clonidine HCl (Catapres) 0.2 mg PO BID [facility] Last Admin: 08/20/18 09:17 Dose: 0.2 mg Enoxaparin Sodium (Lovenox) 40 mg SC DAILY [facility] Last Admin: 08/20/18 09:16 Dose: 40 mg Furosemide (Lasix) 20 mg PO DAILY [facility] Last Admin: 08/20/18 09:16 Dose: 20 mg Guaifenesin (Robitussin) 200 mg PO Q4H PRN PRN Reason: Cough and congestion Last Admin: 08/17/18 08:55 Dose: 200 mg Ceftriaxone Sodium 1 gm/ (Sodium Chloride) 100 mls @ 100 mls/hr IVPB Q24H [facility]; Protocol Last Admin: 08/19/18 18:48 Dose: 100 mls/hr Labetalol HCl (Trandate) 100 mg PO BID [facility] Last Admin: 08/20/18 09:16 Dose: 100 mg Losartan Potassium (Cozaar) 100 mg PO DAILY [facility] Last Admin: 08/20/18 09:16 Dose: 100 mg Metformin HCl (Glucophage) 500 mg [facility] Last Admin: 08/20/18 09:16 Dose: 500 mg Methylprednisolone (Solu-Medrol) 40 mg IVP Q8 [facility] Last Admin: 08/20/18 07:31 Dose: 40 mg Metoprolol Succinate (Toprol Xl) 100 mg PO DAILY [facility] Last Admin: 08/20/18 09:17 Dose: 100 mg Sertraline HCl (Zoloft) 200 mg PO DAILY [facility] Last Admin: 08/20/18 09:16 Dose: 200 mg Trazodone HCl (Desyrel) 50 mg PO DAILY [facility] Last Admin: 08/20/18 09:16 Dose: 50 mg - Labs Labs: 08/19/18 14:11 08/19/18 14:11 Assessment and Plan (1) Asthma Status: Acute (2) Uncontrolled hypertension Status: Chronic (3) Adjustment reaction with anxiety and depression Status: Acute
[2018-08-21] MEDS: MethylPREDNISolone 40 mg Vial IVP SCH ×3 (06:34→22:08)
[2018-08-21] MEDS ORDERED: Albuterol-Ipratrop 3 mg / 0.5 (3 ml) UD INH STA (09:04)
[2018-08-21] MEDS: Metoprolol Succinate 100 mg XL Tab PO SCH (09:36)
[2018-08-21] MEDS: Enoxaparin 40 mg Syringe SC SCH (09:37)
--- NOTE | 2018-08-21 12:32 | CP.PCM.PN ---
Subjective - Date & Time of Evaluation Date of Evaluation: 08/21/18 Time of Evaluation: 12:30 - Subjective Subjective: Patient clinically improving still wheezing shortness of breath on walking Blood pressure is moderately stable Sugars are elevated secondary to steroids Lungs shows bilateral poor air entry Heart S4 Continue present medications Objective - Vital Signs/Intake and Output Vital Signs (last 24 hours): Temp Pulse Resp BP Pulse Ox 98.0 F 66 20 170/94 H 96 08/21/18 08:42 08/21/18 08:42 08/21/18 08:42 08/21/18 09:36 08/21/18 08:42 Intake and Output: 08/21/18 08/21/18 11:59 23:59 Intake Total 120 Output Total 1 Balance 119 - Medications Medications: Current Medications Amlodipine Besylate (Norvasc) 10 mg PO DAILY [facility] Last Admin: 08/21/18 09:37 Dose: 10 mg Aspirin (Aspirin Chewable) 81 mg PO DAILY [facility] Last Admin: 08/21/18 09:36 Dose: 81 mg Clonidine HCl (Catapres) 0.2 mg PO BID [facility] Last Admin: 08/21/18 09:37 Dose: 0.2 mg Enoxaparin Sodium (Lovenox) 40 mg SC DAILY [facility] Last Admin: 08/21/18 09:37 Dose: 40 mg Furosemide (Lasix) 20 mg PO DAILY [facility] Last Admin: 08/21/18 09:36 Dose: 20 mg Guaifenesin (Robitussin) 200 mg PO Q4H PRN PRN Reason: Cough and congestion Last Admin: 08/17/18 08:55 Dose: 200 mg Ceftriaxone Sodium 1 gm/ (Sodium Chloride) 100 mls @ 100 mls/hr IVPB Q24H [facility]; Protocol Last Admin: 08/20/18 18:50 Dose: 100 mls/hr Labetalol HCl (Trandate) 100 mg PO BID [facility] Last Admin: 08/21/18 09:37 Dose: 100 mg Losartan Potassium (Cozaar) 100 mg PO DAILY [facility] Last Admin: 08/21/18 09:36 Dose: 100 mg [facility] ([facility]ucophage) [facility] Last Admin: 08/21/18 08:23 Dose: 500 mg Methylprednisolone (Solu-Medrol) 40 mg IVP Q8 [facility] Last Admin: 08/21/18 06:34 Dose: 40 mg Metoprolol Succinate (Toprol Xl) 100 mg PO DAILY [facility] Last Admin: 08/21/18 09:36 Dose: 100 mg Sertraline HCl (Zoloft) 200 mg PO DAILY [facility] Last Admin: 08/21/18 09:36 Dose: 200 mg Trazodone HCl (Desyrel) 50 mg PO DAILY [facility] Last Admin: 08/21/18 09:36 Dose: 50 mg - Labs Labs: 08/19/18 14:11 08/19/18 14:11 Assessment and Plan (1) Asthma Status: Acute (2) Uncontrolled hypertension Status: Chronic (3) Adjustment reaction with anxiety and depression Status: Acute
[2018-08-22] MEDS: MethylPREDNISolone 40 mg Vial IVP SCH ×2 (06:10→23:06)
[2018-08-22] MEDS: Enoxaparin 40 mg Syringe SC SCH (09:36)
[2018-08-22] MEDS: Metoprolol Succinate 100 mg XL Tab PO SCH (09:37)
--- NOTE | 2018-08-22 11:52 | CP.PCM.PN ---
Subjective - Date & Time of Evaluation Date of Evaluation: 08/22/18 Time of Evaluation: 11:51 - Subjective Subjective: Patient clinically improving still wheezing shortness of breath on walking Blood pressure is moderately stable Sugars are elevated secondary to steroids Lungs shows bilateral poor air entry Heart S4 Continue present medications TAPER STEROIDS Objective - Vital Signs/Intake and Output Vital Signs (last 24 hours): Temp Pulse Resp BP Pulse Ox 98.3 F 58 L 20 184/112 H 96 08/22/18 07:10 08/22/18 07:10 08/22/18 07:10 08/22/18 09:37 08/22/18 07:10 Intake and Output: 08/21/18 08/22/18 23:59 11:59 Intake Total 861 Balance 861 - Medications Medications: Current Medications Amlodipine Besylate (Norvasc) 10 mg PO DAILY [facility] Last Admin: 08/22/18 09:37 Dose: 10 mg Aspirin (Aspirin Chewable) 81 mg PO DAILY [facility] Last Admin: 08/22/18 09:37 Dose: 81 mg Clonidine HCl (Catapres) 0.2 mg PO BID [facility] Last Admin: 08/22/18 09:36 Dose: 0.2 mg Furosemide (Lasix) 20 mg PO DAILY [facility] Last Admin: 08/22/18 09:37 Dose: 20 mg Guaifenesin (Robitussin) 200 mg PO Q4H PRN PRN Reason: Cough and congestion Last Admin: 08/17/18 08:55 Dose: 200 mg Ceftriaxone Sodium 1 gm/ (Sodium Chloride) 100 mls @ 100 mls/hr IVPB Q24H [facility]; Protocol Last Admin: 08/21/18 16:48 Dose: 100 mls/hr Labetalol HCl (Trandate) 100 mg PO BID [facility] Last Admin: 08/22/18 09:36 Dose: 100 mg Losartan Potassium (Cozaar) 100 mg PO DAILY [facility] Last Admin: 08/22/18 09:37 Dose: 100 mg Metformin HCl (Glucophage) 500 mg PO BIDCC [facility] Last Admin: 08/22/18 08:07 Dose: 500 mg Methylprednisolone (Solu-Medrol) 40 mg IVP Q8 [facility] Last Admin: 08/22/18 06:10 Dose: 40 mg Metoprolol Succinate (Toprol Xl) 100 mg PO DAILY [facility] Last Admin: 08/22/18 09:37 Dose: 100 mg Sertraline HCl (Zoloft) 200 mg PO DAILY [facility] Last Admin: 08/22/18 09:36 Dose: 200 mg Trazodone HCl (Desyrel) 50 mg PO DAILY [facility] Last Admin: 08/22/18 09:37 Dose: 50 mg - Labs Labs: 08/19/18 14:11 08/19/18 14:11 Assessment and Plan (1) Asthma Status: Acute (2) Uncontrolled hypertension Status: Chronic (3) Adjustment reaction with anxiety and depression Status: Acute
[2018-08-22] MEDS: (Novolog) Insulin Aspart, Recombinant 100 u/ml 10 ml vial SC SCH ×2 (18:40→22:00)
[2018-08-23 06:25] VITALS: TEMP 97.9
[2018-08-23 07:41] VITALS: PULSE 80; O2SAT 98
[2018-08-23] MEDS: (Novolog) Insulin Aspart, Recombinant 100 u/ml 10 ml vial SC SCH ×2 (07:58→12:26)
[2018-08-23] MEDS: MethylPREDNISolone 40 mg Vial IVP SCH (09:24)
[2018-08-23] MEDS: Metoprolol Succinate 100 mg XL Tab PO SCH (09:25)
[2018-08-23 09:27] VITALS: BP 161/80
--- NOTE | 2018-08-23 11:52 | CP.PCM.DIS ---
Provider - Provider Date of Admission: 08/18/18 14:39 Attending physician: Real Davis MD Time Spent in preparation of Discharge (in minutes): 35 Diagnosis - Discharge Diagnosis (1) Asthma Status: Acute (2) Uncontrolled hypertension Status: Chronic (3) Adjustment reaction with anxiety and depression Status: Acute Hospital Course - Lab Results Lab Results: Micro Results 08/18/18 21:11 Blood-Venous Blood Culture - Preliminary NO GROWTH AFTER 4 DAYS 08/18/18 17:57 Blood-Venous Blood Culture - Preliminary NO GROWTH AFTER 4 DAYS Most Recent Lab Values WBC 7.5 K/uL (4.8-10.8) 08/19/18 14:11 RBC 5.44 Mil/uL (4.40-5.90) 08/19/18 14:11 Hgb 15.0 g/dL (12.0-18.0) 08/19/18 14:11 Hct 46.2 % (35.0-51.0) 08/19/18 14:11 MCV 84.8 fL (80.0-94.0) 08/19/18 14:11 MCH 27.6 pg (27.0-31.0) 08/19/18 14:11 MCHC 32.6 g/dL (33.0-37.0) L 08/19/18 14:11 RDW 14.8 % (11.5-14.5) H 08/19/18 14:11 Plt Count 201 K/uL (130-400) 08/19/18 14:11 MPV 11.0 fL (7.2-11.7) 08/19/18 14:11 Neut % (Auto) 62.8 % (50.0-75.0) 08/19/18 14:11 Lymph % (Auto) 25.6 % (20.0-40.0) 08/19/18 14:11 [place] % (Auto) 8.4 % (0.0-10.0) 08/19/18 14:11 Eos % (Auto) 2.7 % (0.0-4.0) 08/19/18 14:11 Baso % (Auto) 0.5 % (0.0-2.0) 08/19/18 14:11 Neut # (Auto) 4.7 K/uL (1.8-7.0) 08/19/18 14:11 Lymph # (Auto) 1.9 K/uL (1.0-4.3) 08/19/18 14:11 [place] # (Auto) 0.6 K/uL (0.0-0.8) 08/19/18 14:11 Eos # (Auto) 0.2 K/uL (0.0-0.7) 08/19/18 14:11 Baso # (Auto) 0.0 K/uL (0.0-0.2) 08/19/18 14:11 Sodium 137 mmol/L (132-148) 08/19/18 14:11 Potassium 3.7 mmol/L (3.6-5.2) 08/19/18 14:11 Chloride 100 mmol/L (98-107) 08/19/18 14:11 Carbon Dioxide 30 mmol/L (22-30) 08/19/18 14:11 Anion Gap 10 (10-20) 08/19/18 14:11 BUN 19 mg/dL (9-20) 08/19/18 14:11 Creatinine 1.0 mg/dL (0.8-1.5) 08/19/18 14:11 Est GFR ( Amer) > 60 08/19/18 14:11 Est GFR (Non-Af Amer) > 60 08/19/18 14:11 POC Glucose (mg/dL) 245 mg/dL (65-110) H 08/23/18 11:10 Random Glucose 119 mg/dL (75-110) H 08/19/18 14:11 Calcium 9.2 mg/dl (8.6-10.4) 08/19/18 14:11 Total Bilirubin 1.0 mg/dL (0.2-1.3) 08/19/18 14:11 AST 124 U/L (17-59) H D 08/19/18 14:11 ALT 223 U/L (21-72) H D 08/19/18 14:11 Alkaline Phosphatase 64 U/L (38-126) 08/19/18 14:11 Troponin I 0.0480 ng/mL (0.00-0.120) 08/14/18 09:00 NT-Pro-B Natriuret Pep 765 pg/mL (0-900) 08/14/18 09:00 Total Protein 7.1 g/dL (6.3-8.3) 08/19/18 14:11 Albumin 3.9 g/dL (3.5-5.0) 08/19/18 14:11 Globulin 3.2 gm/dL (2.2-3.9) 08/19/18 14:11 Albumin/Globulin Ratio 1.3 (1.0-2.1) 08/19/18 14:11 Urine Color Yellow (YELLOW) 08/14/18 09:18 Urine Clarity Clear (Clear) 08/14/18 09:18 Urine pH 6.0 (5.0-8.0) 08/14/18 09:18 Ur Specific [employer] 1.014 (1.003-1.030) 08/14/18 09:18 Urine Protein 3+ mg/dL (NEGATIVE) H 08/14/18 09:18 Urine Glucose (UA) Normal mg/dL (Normal) 08/14/18 09:18 Urine Ketones Trace mg/dL (NEGATIVE) 08/14/18 09:18 Urine Blood Negative (NEGATIVE) 08/14/18 09:18 Urine Nitrate Negative (NEGATIVE) 08/14/18 09:18 Urine Bilirubin Negative (NEGATIVE) 08/14/18 09:18 Urine Urobilinogen 4.0 mg/dL (0.2-1.0) 08/14/18 09:18 Ur Leukocyte Esterase Neg Babita/uL (Negative) 08/14/18 09:18 Urine WBC (Auto) 1 /hpf (0-5) 08/14/18 09:18 Urine RBC (Auto) 1 /hpf (0-3) 08/14/18 09:18 Ur Squamous Epith Cells < 1 /hpf (0-5) 08/14/18 09:18 Hyaline Casts 6-10 /lpf (0-2) H 08/14/18 09:18 Granular Casts (Auto) 4 /lpf (0-1) 08/14/18 09:18 Urine Opiates Screen Negative (NEGATIVE) 08/14/18 09:18 Urine Methadone Screen Negative (NEGATIVE) 08/14/18 09:18 Ur Barbiturates Screen Negative (NEGATIVE) 08/14/18 09:18 Ur Phencyclidine Scrn Negative (NEGATIVE) 08/14/18 09:18 Ur Amphetamines Screen Negative (NEGATIVE) 08/14/18 09:18 U Benzodiazepines Scrn Negative (NEGATIVE) 08/14/18 09:18 U Oth Cocaine Metabols Positive (NEGATIVE) H 08/14/18 09:18 U Cannabinoids Screen Negative (NEGATIVE) 08/14/18 09:18 - Hospital Course Hospital Course: Patient is a 53 year old male with a PMHx of CHF, aicd, diabetes, psychiatric disorder, HTN, asthma, presents to the ED complaining of CP, SOB, and chest tightness. Patient states that he ran out of his medications one week ago. Patient denies any fever, chills, cough, headache, nausea, vomiting, or diaphoresis. Patient had an echocardiogram done last year which showed ejection fraction of 35%. Patient has multiple psychiatric visits on the previous year Patient was given triple blood pressure medication with moderate improvement of blood pressure bronchial asthma initially responded with bronchodilators and steroids and to be administered. Chest x-ray showed some infiltrates which responded with IV antibiotics. Currently patient is stable will be discharged on blood pressure medication one week of prednisone 10 mg once a day and Augmentin. Discharge Exam - Head Exam Head Exam: ATRAUMATIC, NORMAL INSPECTION, NORMOCEPHALIC Discharge Plan - Follow Up Plan Condition: FAIR Disposition: HOME/ ROUTINE
== END 2018-08-23 13:40 | disposition home or self-care (01) | DRG 588 ==
LOC: C.ER 07:56 → C.9E 11:45 → C.6T 14:06 → OBSVTOIN 08-18 14:39
PROVIDERS: ADMIT Internal Medicine Cardiovascular Disease; ATTEND Internal Medicine Cardiovascular Disease
DX: J45.901 Unspecified asthma with (acute) exacerbation (principal); J18.9 Pneumonia, unspecified organism; I50.42 Chronic combined systolic (congestive) and diastolic (congestive) heart failure; F20.9 Schizophrenia, unspecified; I11.0 Hypertensive heart disease with heart failure; E11.65 Type 2 diabetes mellitus with hyperglycemia; E78.00 Pure hypercholesterolemia, unspecified; Z95.0 Presence of cardiac pacemaker; F43.23 Adjustment disorder with mixed anxiety and depressed mood; F17.210 Nicotine dependence, cigarettes, uncomplicated; T38.0X5A Adverse effect of glucocorticoids and synthetic analogues, initial encounter

== ENCOUNTER 2018-12-11 22:42 | Inpatient (IN) | payer OTHER ==
[2018-12-11 22:43] VITALS: BMI 30.1
[2018-12-11 23:36] LABS: BASO # 0.1 K/uL (0.0-0.2); BASO % 0.9 % (0.0-2.0); EOS # 0.2 K/uL (0.0-0.7); EOS % 2.4 % (0.0-4.0); HEMOGLOBIN 15.6 g/dL (12.0-18.0); LYMPH # 2.2 K/uL (1.0-4.3); LYMPH % 29.1 % (20.0-40.0); MEAN CELL VOLUME 83.5 fL (80.0-94.0); MEAN CORPUSCULAR HEMOGLOBIN 27.7 pg (27.0-31.0); MEAN CORPUSCULAR HGB CONC 33.2 g/dL (33.0-37.0); MEAN PLATELET VOLUME 9.6 fL (7.2-11.7); MONO # 0.7 K/uL (0.0-0.8); MONO % 8.8 % (0.0-10.0); NEUT # 4.5 K/uL (1.8-7.0); NEUT % 58.8 % (50.0-75.0); NRBC % 0.1 % (0.0-2.0); RBC 5.65 Mil/uL (4.40-5.90); RED CELL DISTRIBUTION WIDTH 15.3 % (11.5-14.5); WHITE BLOOD COUNT 7.6 K/uL (4.8-10.8)
--- NOTE | 2018-12-11 23:50 | C.PDOC ---
History Of Present Illness 52 year old male with PMHx of HTN, CHF w/ EF 35%, psychiatric illness presents to the ED c/o chest pain, dyspnea on exertion for the last couple of days. Patient describes chest pain as tightness. Patient denies fever, chills, palpit ations, weakness, numbness. Time Seen by Provider: 12/11/18 23:21 Chief Complaint (Nursing): Shortness Of Breath History Per: Patient History/Exam Limitations: no limitations Onset/Duration Of Symptoms: Days Current Symptoms Are (Timing): Still Present Initiating Event: Upper Respiratory Illness Quality: Tightness Associated Symptoms: Chest Pain Recent travel outside of the [place]: No Additional History Per: Patient Past Medical History Reviewed: Historical Data, Nursing Documentation, Vital Signs Vital Signs: Last Vital Signs Temp 99 F 12/11/18 23:02 Pulse 90 12/11/18 23:02 Resp 18 12/11/18 23:02 BP 200/117 H 12/11/18 23:02 Pulse Ox 94 L 12/11/18 23:02 Primary Care Provider: Clinic,Med Surg - Medical History PMH: Asthma, CHF, HTN, Hypercholesterolemia, Schizophrenia Denies: HIV, Chronic Kidney Disease, Seizures, Sexually Transmitted Disease Surgical History: Pacemaker (w/ defibrillator) - [facility] Procedures DETOXIFICATION SERVICES FOR SUBSTANCE ABUSE TREATMENT (01/26/16) DIPHTHERIA TOXOID ADMIN (01/01/14) INSERTION OF ENDOTRACHEAL AIRWAY INTO TRACHEA, VIA OPENING (01/26/16) RESPIRATORY VENTILATION, GREATER THAN 96 CONSECUTIVE HOURS (01/26/16) TETANUS TOXOID ADMINIST (01/01/14) Family History: States: Unknown Family Hx - Social History Hx Tobacco Use: Yes Hx Alcohol Use: No Hx Substance Use: No - Immunization History Hx Tetanus Toxoid Vaccination: No Hx Influenza Vaccination: Yes Hx Pneumococcal Vaccination: Yes Review Of Systems Constitutional: Negative for: Fever, Chills Cardiovascular: Positive for: Chest Pain. Negative for: Palpitations Respiratory: Positive for: Shortness of Breath, SOB with Excertion. Negative for: Cough Gastrointestinal: Negative for: Nausea, Vomiting, Abdominal Pain Skin: Negative for: Rash Neurological: Negative for: Weakness, Numbness, Headache, Dizziness Physical Exam - Physical Exam Appears: Non-toxic, No Acute Distress Skin: Normal Color, Warm, Dry Head: Atraumatic, Normacephalic Eye(s): bilateral: Normal Inspection Oral Mucosa: Moist Neck: Normal ROM, Supple Chest: Symmetrical Cardiovascular: Rhythm Regular Respiratory: Rales (mild at bases), No Rhonchi, No Wheezing Gastrointestinal/Abdominal: Soft, No Tenderness, No Distention Extremity: Normal ROM, No Tenderness, No Pedal Edema Neurological/Psych: Oriented x3, Normal Speech, Normal Cognition Gait: Steady ED Course And Treatment - Laboratory Results Result Diagrams: 12/17/18 07:49 12/17/18 07:49 Lab Results: PT 11.0 SECONDS (9.7-12.2) 12/11/18 23:33 INR 1.0 12/11/18 23:33 APTT 31.0 SECONDS (21-34) 12/11/18 23:33 ECG: Interpreted By Me, Viewed By Me ECG Rhythm: Sinus Rhythm Interpretation Of ECG: No ST/T wave changes Rate From EC (BPM) O2 Sat by Pulse Oximetry: 94 Medical Decision Making Medical Decision Making: Plan: * EKG * CXR * Labs cp ro acs. caseaccepted by dr estrada. Disposition - Disposition Disposition: HOSPITALIZED Disposition Time: 09:00 Condition: STABLE - Clinical Impression Clinical Impression: Chest discomfort - Scribe Statement The provider has reviewed the documentation as recorded by the Scribe Eduardo Velazquez All medical record entries made by the Scribe were at my direction and persona lly dictated by me. I have reviewed the chart and agree that the record accurately reflects my personal performance of the history, physical exam, medical decision making, and the department course for this patient. I have also personally directed, reviewed, and agree with the discharge instructions and disposition. Decision To Admit - Pt Status Changed To: Hospital Disposition Of: Observation - . Bed Request Type: Telemetry Admitting Physician: Sheila Cruz Patient Diagnosis: Chest discomfort
[2018-12-12 00:04] LABS: ALB/GLOB RATIO 1.1 (1.0-2.1); ALBUMIN 4.3 g/dL (3.5-5.0); BLOOD UREA NITROGEN 12 mg/dL (9-20); CALCIUM 9.6 mg/dl (8.6-10.4); GFR NON-AFRICAN AMERICAN > 60
[2018-12-12 00:16] LABS: B-TYPE NATRIURETIC PEPTIDE 610 pg/mL (0-900)
[2018-12-12 00:27] LABS: ALT/SGPT 112 U/L (21-72); AST/SGOT 128 U/L (17-59)
[2018-12-12 01:41] LABS: BARBITURATES, UR NEGATIVE (NEGATIVE); BENZODIAZEPINES, UR NEGATIVE (NEGATIVE); OPIATES, UR NEGATIVE (NEGATIVE); PHENCYCLIDINE, UR NEGATIVE (NEGATIVE)
[2018-12-12 01:50] LABS: SPERM URINE RARE /hpf; URINE BILIRUBIN NEGATIVE (NEGATIVE); URINE BLOOD 1+ (NEGATIVE); URINE CLARITY Clear (Clear); URINE COLOR Yellow (YELLOW); URINE GLUCOSE (UA) 2+ mg/dL (Normal); URINE LEUKOCYTE ESTERASE NEG Leu/uL (Negative); URINE PROTEIN 3+ mg/dL (NEGATIVE)
[2018-12-12 02:37] VITALS: RESP 20
[2018-12-12 07:32] LABS: CK-MB 4.99 ng/mL (0.0-3.38); TROPONIN I 0.079 ng/mL (0.00-0.120)
[2018-12-12] MEDS: (Novolin R) Insulin Human Regular 100 units/ml vial SC SCH ×4 (08:47→21:19)
--- NOTE | 2018-12-12 09:22 | CP.PCM.PN ---
Subjective - Date & Time of Evaluation Date of Evaluation: 12/12/18 Time of Evaluation: 09:22 - Subjective Subjective: H&P [facility] #[id number] Objective - Vital Signs/Intake and Output Vital Signs (last 24 hours): Temp Pulse Resp BP Pulse Ox 98.5 F 86 20 187/111 H 98 12/12/18 08:25 12/12/18 08:25 12/12/18 08:25 12/12/18 08:25 12/12/18 08:25 Intake and Output: 12/12/18 12/12/18 06:59 18:59 Intake Total 480 Balance 480 - Medications Medications: Current Medications Amlodipine Besylate (Norvasc) 10 mg PO DAILY [facility] Aspirin (Aspirin Chewable) 81 mg PO DAILY [facility] Clonidine HCl (Catapres) 0.2 mg PO BID [facility] Furosemide (Lasix) 20 mg PO DAILY [facility] Heparin Sodium (Porcine) (Heparin) 5,000 units SC Q12 [facility] Insulin Human Regular (Novolin R) 0 unit SC ACHS [facility]; Protocol Last Admin: 12/12/18 08:47 Dose: 2 unit Losartan Potassium (Cozaar) 100 mg PO DAILY [facility] Metformin HCl (Glucophage) 500 mg PO BIDCC [facility] Last Admin: 12/12/18 08:47 Dose: 500 mg Metoprolol Succinate (Toprol Xl) 100 mg PO DAILY [facility] Sertraline HCl (Zoloft) 200 mg PO DAILY [facility] Trazodone HCl (Desyrel) 50 mg PO DAILY [facility] - Labs Labs: 12/11/18 23:33 12/11/18 23:33 PT 11.0 SECONDS (9.7-12.2) 12/11/18 23:33 INR 1.0 12/11/18 23:33 APTT 31.0 SECONDS (21-34) 12/11/18 23:33
[2018-12-12] MEDS: Metoprolol Succinate 100 mg XL Tab PO SCH (10:50)
--- NOTE | 2018-12-12 11:06 | RAD ---
HISTORY: chest pain COMPARISON: Chest x-ray performed 08/17/18 TECHNIQUE: Chest, one view. FINDINGS: Examination limited by habitus. LUNGS: Mild right basilar atelectasis. Please note that chest x-ray has limited sensitivity for the detection of pulmonary masses. PLEURA: No significant pleural effusion identified. No definite pneumothorax . CARDIOVASCULAR: Single lead left-sided AICD. Cardiomegaly. Faint atherosclerotic calcifications. OSSEOUS STRUCTURES: Degenerative changes. VISUALIZED UPPER ABDOMEN: Unremarkable. OTHER FINDINGS: None. IMPRESSION: Single lead left-sided AICD. Cardiomegaly. Mild right basilar atelectasis.
--- NOTE | 2018-12-12 12:38 | CARD ---
APPROVED REPORT Date of service: 12/12/2018 EXAM: Two-dimensional and M-mode echocardiogram with Doppler and color Doppler. Other Information Quality : TDSRhythm : INDICATION Chest Pain Congestive Heart Failure RISK FACTORS Hyperlipidemia 2D DIMENSIONS IVSd1.0 (0.7-1.1cm)LVDd6.4 (3.9-5.9cm) PWd1.2 (0.7-1.1cm)LA [id number] (18-58mL) LVDs5.6 (2.5-4.0cm)FS (%) 13.2 % LVEF (%)27.6 (>50%)LVEF (Rodriguez's)22.06 % IVC0.00 cm M-Mode DIMENSIONS RVDd1.98 (2.1-3.2cm)Left Atrium (MM)5.22 (2.5-4.0cm) IVSd1.20 (0.7-1.1cm)Aortic Root3.08 (2.2-3.7cm) LVDd6.72 (4.0-5.6cm)Aortic Cusp Exc.2.22 (1.5-2.0cm) PWd1.44 (0.7-1.1cm)FS (%) 12 % LVDs5.89 (2.0-3.8cm)LVEF (%)26 (>50%) Mitral Valve MV E Cikfjjbq908.1cm/sMV A Eyekuzri18.1cm/sE/A ratio2.2 TXVU883.02 cm/s TDI E/Lateral E'0.0E/Medial E'0.0 Tricuspid Valve TR Peak [id number]/sTR Peak Gr.3drTcIWLR2yxHn LEFT VENTRICLE Thel left ventricle is moderately dilated. There is mild to moderate concentric left ventricular hypertrophy. Left ventricle systolic function is severely impaired. There is global hypokinesis of the left ventricle. Grade III- diastolic dysfunction- restrictive pattern RIGHT VENTRICLE The right ventricle is mildly to moderately dilated. Systolic function is mildly to moderately reduced. There is a pacemaker/AICD lead in the right ventricle. ATRIA The left atrium is moderately dilated. The right atrium is mildly dilated. AORTIC VALVE The aortic valve is normal in structure. No aortic regurgitation is present. There is no aortic valvular stenosis. MITRAL VALVE The mitral valve is normal in structure. Mitral regurgitation is mild. TRICUSPID VALVE The tricuspid valve is normal in structure. There is mild tricuspid regurgitation. PULMONIC VALVE The pulmonary valve is normal in structure. There is mild pulmonic valvular regurgitation. GREAT VESSELS The aortic root is normal in size. The IVC is normal in size and collapses >50% with inspiration. PERICARDIAL EFFUSION There is no pericardial effusion. <Conclusion> Thel left ventricle is moderately dilated. There is mild to moderate concentric left ventricular hypertrophy. There is global hypokinesis of the left ventricle. Left ventricle systolic function is severely impaired. Grade III- diastolic dysfunction- restrictive pattern The right ventricular systolic function is mildly to moderately reduced. There is a pacemaker/AICD lead in the right ventricle. Mild mitral regurgitation. There is no pericardial effusion.
[2018-12-12 17:26] LABS: CK-MB 4.53 ng/mL (0.0-3.38); TROPONIN I 0.058 ng/mL (0.00-0.120)
--- NOTE | 2018-12-13 02:17 | HP ---
CHIEF COMPLAINT: Sudden onset of chest pain associated with shortness of breath and leg swelling. He felt a shock one time yesterday. HISTORY OF PRESENT ILLNESS: Mr. Trujillo is a 53-year-old male with past medical history of hypertension, hyperlipidemia, diabetes mellitus, anxiety, depression, coronary artery disease, status post AICD placement, underwent cardiac catheterization, done by Dr. Marques. Has been following up with Dr. Zachariah Garnica as tissue technologist and not following up with any primary care physician. Last seen his tissue technologist is about three months ago. Came into the emergency room with complaints of chest pain associated with shortness of breath on walking and progressive worsening of leg swelling, and he felt shock once yesterday while he was waiting at [place]. EMS was called and the patient was brought into the emergency room. In the emergency room, the patient was evaluated and admitted for further management. When I examined, he was feeling slightly better but complaining of dyspnea on exertion. Denies any headache or dizziness. His chest pain was better. When he had chest pain yesterday, he had diaphoresis and no nausea, no vomiting. Denies any abdominal pain, diarrhea, or constipation. Denies any urinary symptoms. Denies any leg pains or leg cramps. All other systems reviewed and were found to be negative. PAST MEDICAL HISTORY: As described, coronary artery disease, status post AICD placement, hypertension, hyperlipidemia, diabetes mellitus, and depression. PAST SURGICAL HISTORY: Underwent AICD placement about two years ago, cardiac catheterization done by Dr. Marques. FAMILY HISTORY: Throat cancer in father who at age 84. Mother from diabetes. PERSONAL HISTORY: He is single. Lives with niece. Not having any children. He is disabled. SOCIAL HISTORY: Smokes 10 cigarettes per day. Denies any alcohol or drug abuse. ALLERGIES: NO KNOWN DRUG ALLERGIES. MEDICATIONS: His medication at home include trazodone 50 mg daily, metformin 500 mg p.o. b.i.d., guaifenesin as needed, clonidine 0.2 mg b.i.d., amlodipine 10 mg daily, Zoloft 200 mg daily, metoprolol 100 mg daily, Solu-Medrol pack, Cozaar 100 mg daily, Lasix 20 mg daily, aspirin 81 mg daily, albuterol as needed. REVIEW OF SYSTEMS: As described in history of present illness. All other systems reviewed and were found to be negative. PHYSICAL EXAMINATION: GENERAL: Middle-aged male, lying in bed, in no acute distress. VITAL SIGNS: Blood pressure 173/98, pulse 86, respirations 20, temperature 98.3 degrees Fahrenheit, O2 sat is 98% on 2 L nasal canula. HEENT: Pupils equal, round and reacting to light and accommodation. Extraocular muscles intact. No icterus. No pallor. No oral thrush. No pharyngeal congestion. NECK: Supple. No JVD. LUNGS: Bilateral vesicular breath sounds. No wheezing. No rhonchi. Occasional basal crackles heard. CARDIOVASCULAR SYSTEM: S1 and S2 are present, regular. ABDOMEN: Soft, nontender. Bowel sounds present. No guarding. No rigidity. No rebound tenderness noted. CENTRAL NERVOUS SYSTEM: Alert, awake, oriented x3. No focal deficits noted. EXTREMITIES: 1+ edema. Palpable peripheral pulses. LABORATORY DATA: Labs done from the emergency room: WBC 7.6, hemoglobin 15.6, hematocrit 47.2, platelets 161. PT 11. INR 1, PTT 31. Sodium 137, potassium 4, chloride 99, bicarb 27, BUN 12, creatinine 0.9, glucose 175. Hemoglobin A1c 9.4. Calcium 9.6. Total bilirubin 9.8, AST 128, ALT 112, alkaline phosphatase 85. Troponin 0.1010. Pro-BNP is 610. Total protein 8, albumin 4. UA: Specific gravity 1.018, pH 6, protein 3+, glucose 2+. Drug screen negative. Chest x-ray, mild basal atelectasis, cardiomegaly. EKG consistent with normal sinus rhythm at 90 beats per minute, prolonged QT. ASSESSMENT AND PLAN: Middle-aged male with history of coronary artery disease, status post automatic implantable cardioverter-defibrillator placement, cardiomyopathy, hypertension, hyperlipidemia, diabetes mellitus, depression. Recently admitted to the hospital in 08/2018 for chest pain, now returning to the hospital with chest pain associated with shortness of breath and diaphoresis and status post shock x1 by automatic implantable cardioverter-defibrillator yesterday. The patient is being admitted for further evaluation and management. 1. Chest pain with shortness of breath and diaphoresis, rule out acute coronary syndrome in a patient with multiple risk factors. 2. Cardiomyopathy. 3. Congestive heart failure. 4. Hypertension, uncontrolled blood pressures. 5. Uncontrolled diabetes mellitus. 6. Hyperlipidemia. 7. Depression. PLAN: The patient is being admitted to cardiac telemetry. We will do serial cardiac enzymes, serial EKGs, and check echocardiogram. Obtain cardiology evaluation with Dr. Chapin Marques and request interrogation of the AICD. We will continue with his home medications of metoprolol 100 mg daily, losartan 100 mg daily, increase Lasix to 40 mg IV daily, aspirin 81 mg daily, Norvasc 10 mg daily, clonidine 0.2 mg p.o. b.i.d. Continue with trazodone 50 mg daily and Zoloft 200 mg daily. The patient is only on metformin 500 mg p.o. b.i.d. We will do Accu-Cheks every before meals and at bedtime. We will request endocrinology consult and adjust his medications as needed to control his diabetes. We will add further recommendation as his clinical course progresses. Sheila Cruz MD
--- NOTE | 2018-12-13 07:29 | CON ---
DATE: 12/12/2018 ENDOCRINOLOGY CONSULTATION LOCATION: Room 663. HISTORY OF PRESENT ILLNESS: This is a 53-year-old male with known history of type 2 diabetes and hypertension, presenting here with precordial chest pain and progressive shortness of breath, especially on exertion and is now being referred for diabetic evaluation and management. PAST MEDICAL HISTORY: As mentioned above, history of type 2 diabetes, controlled on metformin at 500 mg b.i.d., history of hypertension and dyslipidemia, history of dilated cardiomyopathy with latest ejection fraction of 35%, history of previous admissions for congestive heart failure. He also has history of cardiac arrhythmias with a previous pacemaker and defibrillator insertion as noted. History of chronic schizoaffective disorder with underlying schizophrenia, on psychotropic medications. History of chronic bronchial asthma. FAMILY HISTORY: Positive for diabetes, hypertension. SOCIAL HISTORY: The patient has supportive family, admits to chronic alcoholism and substance abuse. He is a former smoker. REVIEW OF SYSTEMS: Admits to sudden onset of dizziness and lightheadedness with generalized body weakness, worse in the day of admission. Also admits to sudden precordial chest pain, persistent and progressively worsening with supervening shortness of breath, especially on exertion with paroxysmal nocturnal dyspnea. His oral intake has been variable with nausea, dyspepsia, and vague upper abdominal pains. Also admits to habitual constipation. No recent alterations of urinary patterns. PHYSICAL EXAMINATION: GENERAL: This is an overweight male, in no apparent distress. VITAL SIGNS: Blood pressure initially of 200/117, pulse of 90 beats per minute and regular, temperature 98, respirations 20, height is 5 feet 9 inches, weight is 228 pounds. HEENT: Head: Normocephalic. Eyes: Anicteric with pink conjunctivae. Funduscopy not possible at this time. Ears, nose and throat: Otherwise normal. NECK: Supple. Thyroid gland is normal size. No carotid bruits or any cervical adenopathy. CARDIOPULMONARY: Some adynamic precordium. S1, S2, rapid and regular. LUNGS: Show scattered rhonchi. ABDOMEN: Flat, soft, positive bowel sounds. EXTREMITIES: No pitting edema, pulses are +2 bilaterally. LABORATORY DATA: His chemistry showed a BUN of 12, sodium 137, potassium 4, chloride 99, CO2 of 27, glucose 175, and creatinine 0.9. He has elevated liver transaminases and a CK-MB of 4.9 as noted. His triglycerides are 166, the cholesterol is 235, TSH is 2.14. His A1c is 9.4%. ASSESSMENT: This is a 53-year-old male with uncontrolled and decompensated type 2 diabetes, presenting here with acute coronary syndrome with the background of significant cardiac vasculopathy and cardiomyopathy and is now being referred for diabetic evaluation and management. PLAN OF MANAGEMENT: We will continue the metformin given as 500 mg b.i.d. and add Amaryl given as 2 mg b.i.d. before meals to start today as ordered. We will obtain serial chemistries and supplement accordingly as needed. We will titrate incrementally as indicated to optimize metabolic control. We will also reinforce dietary education and dietary instructions at the time of this admission. We will follow. Bertha Carr MD
[2018-12-13 07:41] LABS: ALB/GLOB RATIO 1.2 (1.0-2.1); ALBUMIN 3.9 g/dL (3.5-5.0); ALT/SGPT 129 U/L (21-72); AST/SGOT 184 U/L (17-59); BLOOD UREA NITROGEN 17 mg/dL (9-20); CALCIUM 9.4 mg/dl (8.6-10.4); GFR NON-AFRICAN AMERICAN > 60
[2018-12-13] MEDS: (Novolin R) Insulin Human Regular 100 units/ml vial SC SCH ×4 (07:42→21:42)
[2018-12-13] MEDS: Metoprolol Succinate 100 mg XL Tab PO SCH (09:09)
--- NOTE | 2018-12-13 09:46 | CP.PCM.PN ---
Subjective - Date & Time of Evaluation Date of Evaluation: 12/13/18 Time of Evaluation: 09:46 - Subjective Subjective: Progress note dictated #[id number] Objective - Vital Signs/Intake and Output Vital Signs (last 24 hours): Temp Pulse Resp BP Pulse Ox 97.6 F 70 20 166/115 H 98 12/13/18 07:25 12/13/18 07:29 12/13/18 07:25 12/13/18 09:09 12/13/18 07:25 - Medications Medications: Current Medications Amlodipine Besylate (Norvasc) 10 mg PO DAILY [facility] Last Admin: 12/13/18 09:09 Dose: 10 mg Aspirin (Aspirin Chewable) 81 mg PO DAILY [facility] Last Admin: 12/13/18 09:06 Dose: 81 mg Clonidine HCl (Catapres) 0.2 mg PO BID [facility] Last Admin: 12/13/18 09:09 Dose: 0.2 mg Furosemide (Lasix) 40 mg IVP DAILY [facility] Last Admin: 12/13/18 09:09 Dose: 40 mg Glimepiride (Amaryl) 2 mg PO ACBD [facility] Last Admin: 12/13/18 08:43 Dose: 2 mg Heparin Sodium (Porcine) (Heparin) 5,000 units SC Q12 [facility] Last Admin: 12/12/18 21:47 Dose: 5,000 units Insulin Human Regular (Novolin R) 0 unit SC ACHS [facility]; Protocol Last Admin: 12/13/18 07:42 Dose: 1 unit Losartan Potassium (Cozaar) 100 mg PO DAILY [facility] Last Admin: 12/13/18 09:06 Dose: 100 mg Metformin HCl (Glucophage) 500 mg PO BIDCC [facility] Last Admin: 12/13/18 08:43 Dose: 500 mg Metoprolol Succinate (Toprol Xl) 100 mg PO DAILY [facility] Last Admin: 12/13/18 09:09 Dose: 100 mg Sertraline HCl (Zoloft) 200 mg PO DAILY [facility] Last Admin: 12/13/18 09:08 Dose: 200 mg Trazodone HCl (Desyrel) 50 mg PO DAILY [facility] Last Admin: 12/13/18 09:09 Dose: 50 mg - Labs Labs: 12/11/18 23:33 12/13/18 07:20 PT 11.0 SECONDS (9.7-12.2) 05/13/19 23:33 INR 1.0 12/11/18 23:33 APTT 31.0 SECONDS (21-34) 12/11/18 23:33
--- NOTE | 2018-12-13 11:52 | CARD ---
APPROVED REPORT Date of service: 12/11/2018 EKG Measurement Heart [id number] <Conclusion> Normal sinus rhythm Prolonged QT Abnormal ECG
--- NOTE | 2018-12-13 11:52 | CARD ---
APPROVED REPORT Date of service: 12/12/2018 EKG Measurement Heart [id number] <Conclusion> Normal sinus rhythm Prolonged QT Abnormal ECG
[2018-12-13] MEDS: Albuterol-Ipratrop 3 mg / 0.5 (3 ml) UD INH SCH ×2 (13:48→20:06)
--- NOTE | 2018-12-13 19:07 | PN ---
DATE: 12/13/2018 ENDOCRINOLOGY FOLLOWUP NOTE LOCATION: Room 663. SUBJECTIVE: This is a 53-year-old male with recent uncontrolled type 2 diabetes, presenting here with acute coronary syndrome, and is now undergoing cardiac workup and management and is being followed closely also for metabolic management. His glycemic levels are fluctuating, but improved and the glucose values have ranged today from 166 to 230 mg/dL. LABORATORY DATA: His chemistry showed a BUN of 17, sodium 137, potassium 3.6, chloride 97, CO2 of 31, glucose 170, and creatinine 1.1. ASSESSMENT: This is a 53 -year-old male with uncontrolled and decompensated type 2 diabetes, presenting here with acute coronary syndrome and is now being followed closely for metabolic management. PLAN OF MANAGEMENT: We will continue the dual oral hypoglycemic drug therapy as given with Amaryl at 2 mg b.i.d. before meals and metformin at 500 mg b.i.d. after meals as ordered. We will obtain serial chemistries and supplement accordingly as needed. We will follow. Bertha Carr MD
--- NOTE | 2018-12-13 22:57 | PN ---
DATE: 12/13/2018 SUBJECTIVE: The patient is seen and examined at bedside. The patient still complaining of dyspnea on exertion and tightness upon walking. Denies any other new complaints. PHYSICAL EXAMINATION: GENERAL: Middle-aged obese male, lying in bed, in no acute distress. VITAL SIGNS: Blood pressure /73, pulse 64, respirations 20, temperature 97.8 degrees Fahrenheit, O2 sat is 99% on room air. HEENT: Pupils equal, round, and reacting to light and accommodation. Extraocular muscles are intact. No icterus, no pallor, no oral thrush, and no pharyngeal congestion. NECK: Supple, no JVD. LUNGS: Bilateral vesicular breath sounds. No wheezing, no rhonchi. CARDIOVASCULAR SYSTEM: S1 and S2 present. Regular. ABDOMEN: Soft and nontender. Bowel sounds present. No guarding, no rigidity, no rebound tenderness noted. CENTRAL NERVOUS SYSTEM: Alert, awake, oriented x3. No focal deficits noted. EXTREMITIES: No edema. Palpable peripheral pulses. MEDICATIONS: Buffy Cardenas, amlodipine 10 mg daily, aspirin 81 mg daily, Catapres 0.2 mg p.o. b.i.d., Lasix 40 mg IV daily, Amaryl 2 mg p.o. before meals b.d., subcutaneous heparin every 12 hours, losartan 100 mg daily, Glucophage 500 mg b.i.d., Toprol-XL 100 mg daily, Zoloft 200 mg daily, trazodone 50 mg daily. LABORATORY DATA: Labs done from today. Sodium 137, potassium 3.6, chloride 97, bicarb 31, BUN 17, creatinine 1.1, glucose 166, calcium 9.4, hemoglobin A1c 9.4, magnesium 1.9, total bilirubin 1.9, AST 184, ALT 129, alkaline phosphatase 78. Urine drug screen negative. ASSESSMENT AND PLAN: Middle-aged male with coronary artery disease, status post automatic implantable cardioverter-defibrillator placement, cardiomyopathy, hypertension, hyperlipidemia, diabetes mellitus, depression, admitted for chest pain with dyspnea on exertion, acute coronary syndrome ruled out by negative cardiac enzymes, and no new acute electrocardiogram changes. Continue with his home medications. Lasix dose increased to 40 mg intravenous daily. We will add nebulizer treatments. Waiting for Cardiology evaluation and for further treatment or recommendations from Cardiology. We will continue with current antihypertensives. Sheila Cruz MD [facility] # [phone]
[2018-12-14] MEDS: Albuterol-Ipratrop 3 mg / 0.5 (3 ml) UD INH SCH ×4 (01:12→19:31)
[2018-12-14] MEDS: (Novolin R) Insulin Human Regular 100 units/ml vial SC SCH ×4 (09:01→21:19)
[2018-12-14] MEDS: Metoprolol Succinate 100 mg XL Tab PO SCH (09:03)
--- NOTE | 2018-12-14 10:45 | CP.PCM.PN ---
Subjective - Date & Time of Evaluation Date of Evaluation: 12/14/18 Time of Evaluation: 10:45 - Subjective Subjective: Progress note dictated #[id number] Objective - Vital Signs/Intake and Output Vital Signs (last 24 hours): Temp Pulse Resp BP Pulse Ox 98.7 F 66 20 143/81 97 12/14/18 08:38 12/14/18 08:38 12/14/18 08:38 12/14/18 09:03 12/14/18 08:38 Intake and Output: 12/14/18 12/14/18 06:59 18:59 Intake Total 240 Balance 240 - Medications Medications: Current Medications Albuterol/Ipratropium (Duoneb 3 Mg/0.5 Mg (3 Ml) Ud) 3 ml INH RQ6 [facility] Last Admin: 12/14/18 01:12 Dose: 3 ml Amlodipine Besylate (Norvasc) 10 mg PO DAILY [facility] Last Admin: 12/14/18 09:03 Dose: 10 mg Aspirin (Aspirin Chewable) 81 mg PO DAILY [facility] Last Admin: 12/14/18 09:04 Dose: 81 mg Clonidine HCl (Catapres) 0.2 mg PO BID [facility] Last Admin: 12/14/18 09:03 Dose: 0.2 mg Furosemide (Lasix) 40 mg IVP DAILY [facility] Last Admin: 12/14/18 09:03 Dose: 40 mg Glimepiride (Amaryl) 2 mg PO ACBD [facility] Last Admin: 12/14/18 09:03 Dose: 2 mg Heparin Sodium (Porcine) (Heparin) 5,000 units SC Q12 [facility] Last Admin: 12/14/18 09:02 Dose: 5,000 units Insulin Human Regular (Novolin R) 0 unit SC ACHS [facility]; Protocol Last Admin: 12/14/18 09:01 Dose: Not Given Losartan Potassium (Cozaar) 100 mg PO DAILY [facility] Last Admin: 12/14/18 09:03 Dose: 100 mg Metformin HCl (Glucophage) 500 mg PO BIDCC [facility] Last Admin: 12/14/18 09:03 Dose: 500 mg Metoprolol Succinate (Toprol Xl) 100 mg PO DAILY [facility] Last Admin: 12/14/18 09:03 Dose: 100 mg Sertraline HCl (Zoloft) 200 mg PO DAILY [facility] Last Admin: 12/14/18 09:03 Dose: 200 mg Trazodone HCl (Desyrel) 50 mg PO DAILY [facility] Last Admin: 12/14/18 09:03 Dose: 50 mg - Labs Labs: 12/11/18 23:33 12/13/18 07:20 PT 11.0 SECONDS (9.7-12.2) 12/11/18 23:33 INR 1.0 12/11/18 23:33 APTT 31.0 SECONDS (21-34) 12/11/18 23:33
--- NOTE | 2018-12-14 18:54 | CP.PCM.CON ---
History of Present Illness - History of Present Illness History of Present Illness: Reason for consultation: Chest pain and shortness of breath 53-year-old male with history of hypertension, diabetes, depression, coronary artery disease status post AICD placement, long history of smoking presented to emergency room complaining of chest pain associated with shortness of breath and worsening of leg swelling. Denies fever chills, denies nausea vomiting. Review of Systems - Review of Systems All systems: reviewed and no additional remarkable complaints except (Chest pain and shortness of breath) Past Patient History - Infectious Disease Hx of Infectious Diseases: None - Tetanus Immunizations Tetanus Immunization: Unknown - Past Medical History & Family History Past Medical History?: Yes - Past Social History Smoking Status: Heavy Smoker > 10 Cigarettes Daily - CARDIAC Hx Congestive Heart Failure: Yes Hx Hypercholesterolemia: Yes Hx Hypertension: Yes Hx Pacemaker: Yes (w/ defibrillator) - PULMONARY Hx Asthma: Yes - NEUROLOGICAL Hx Seizures: No - HEENT Hx HEENT Problems: No - RENAL Hx Chronic Kidney Disease: No - ENDOCRINE/METABOLIC Hx Endocrine Disorders: Yes Other/Comment: Diabetes - HEMATOLOGICAL/ONCOLOGICAL Hx Human Immunodeficiency Virus (HIV): No - INTEGUMENTARY Hx Dermatological Problems: No - MUSCULOSKELETAL/RHEUMATOLOGICAL Hx Falls: Yes - GASTROINTESTINAL Hx Gastrointestinal Disorders: No - GENITOURINARY/GYNECOLOGICAL Hx Sexually Transmitted Disorders: No - PSYCHIATRIC Hx Substance Use: No - SURGICAL HISTORY Hx Surgeries: Yes Hx Cardiac Catheterization: Yes - ANESTHESIA Hx Anesthesia: Yes Hx Anesthesia Reactions: No Hx Malignant Hyperthermia: No Has any member of the family had a problem w/ anesthesia?: No Meds Allergies/Adverse Reactions: Allergies Allergy/AdvReac Type Severity Reaction Status Date / Time No Known Allergies Allergy Verified 12/11/18 23:06 - Medications Medications: Current Medications Albuterol/Ipratropium (Duoneb 3 Mg/0.5 Mg (3 Ml) Ud) 3 ml INH RQ6 [facility] Last Admin: 12/14/18 13:29 Dose: 3 ml Amlodipine Besylate (Norvasc) 10 mg PO DAILY [facility] Last Admin: 12/14/18 09:03 Dose: 10 mg Aspirin (Aspirin Chewable) 81 mg PO DAILY [facility] Last Admin: 12/14/18 09:04 Dose: 81 mg Clonidine HCl (Catapres) 0.2 mg PO BID [facility] Last Admin: 12/14/18 17:06 Dose: 0.2 mg Furosemide (Lasix) 40 mg IVP DAILY [facility] Last Admin: 12/14/18 09:03 Dose: 40 mg Glimepiride (Amaryl) 2 mg PO ACBD [facility] Last Admin: 12/14/18 17:06 Dose: 2 mg Heparin Sodium (Porcine) (Heparin) 5,000 units SC Q12 [facility] Last Admin: 12/14/18 09:02 Dose: 5,000 units Insulin Human Regular (Novolin R) 0 unit SC ACHS [facility]; Protocol Last Admin: 12/14/18 17:07 Dose: Not Given Losartan Potassium (Cozaar) 100 mg PO DAILY [facility] Last Admin: 12/14/18 09:03 Dose: 100 mg Metformin HCl (Glucophage) 500 mg PO BIDCC [facility] Last Admin: 12/14/18 17:07 Dose: 500 mg Metoprolol Succinate (Toprol Xl) 100 mg PO DAILY [facility] Last Admin: 12/14/18 09:03 Dose: 100 mg Montelukast Sodium (Singulair) 10 mg PO [facility] Sertraline HCl (Zoloft) 200 mg PO DAILY [facility] Last Admin: 12/14/18 09:03 Dose: 200 mg Trazodone HCl (Desyrel) 50 mg PO DAILY [facility] Last Admin: 12/14/18 09:03 Dose: 50 mg Physical Exam - Head Exam Head Exam: ATRAUMATIC, NORMOCEPHALIC - ENT Exam ENT Exam: Mucous Membranes Moist - Neck Exam Neck exam: Positive for: Normal Inspection - Respiratory Exam Respiratory Exam: Rhonchi, Wheezes - Cardiovascular Exam Cardiovascular Exam: REGULAR RHYTHM - GI/Abdominal Exam GI & Abdominal Exam: Normal Bowel Sounds, Soft - Extremities Exam Extremities exam: Positive for: normal inspection - Neurological Exam Neurological exam: Alert, Oriented x3 Results - Vital Signs Recent Vital Signs: Last Vital Signs Temp 98.0 F 12/14/18 15:00 Pulse 89 12/14/18 17:09 Resp 20 12/14/18 15:00 BP 145/91 H 12/14/18 17:09 Pulse Ox 97 12/14/18 15:00 - Labs Result Diagrams: 12/11/18 23:33 12/13/18 07:20 Labs: Laboratory Results - last 24 hr 12/13/18 12/14/18 21:25 06:16 POC Glucose (mg/dL) 174 H 154 H Assessment & Plan (1) COPD exacerbation Assessment and Plan: Patient with long history of smoking and shortness of breath Nebulizer treatment Start Brovana and budesonide Pulmonary function test Patient advised to quit smoking Cardiology work-up Status: Acute
[2018-12-14] MEDS: Budesonide 0.5 mg/2 ml Inhal Susp UD INH SCH (19:31)
[2018-12-14] MEDS: Arformoterol 15 mcg/2 ml Inh Sol INH SCH (19:31)
--- NOTE | 2018-12-14 20:26 | PN ---
DATE: 12/14/2018 ENDOCRINOLOGY FOLLOWUP NOTE LOCATION: Room 663. SUBJECTIVE: This is a 53-year-old male with recent admission for acute coronary syndrome and is now being followed closely also for metabolic management. His glycemic levels are fluctuating but improved. The glucose values have ranged from 154 to 174 mg/dL. LABORATORY DATA: His chemistry showed a BUN of 17, sodium 137, potassium 3.6, chloride 97, CO2 of 31, glucose 117, and creatinine 1.2. ASSESSMENT: This is a 53-year-old male with uncontrolled type 2 diabetes, presenting here with acute coronary syndrome on the background of significant dilated cardiomyopathy and congestive heart failure thereof. PLAN OF MANAGEMENT: So at this time, we will continue the metformin given as 500 mg b.i.d. with meals as ordered. We will continue also the low-dose correction scale using regular insulin as ordered. We will obtain serial chemistries and supplement accordingly as needed. If hypoglycemic levels persists, then we will consider the addition of Januvia given once daily as indicated. We will follow. Bertha Carr MD
--- NOTE | 2018-12-15 00:32 | PN ---
DATE: 12/14/2018 SUBJECTIVE: The patient is seen and examined at bedside. The patient is still complaining of dyspnea on exertion and chest tightness exists. Denies any dizziness. All other systems reviewed and were found to be negative. PHYSICAL EXAMINATION: GENERAL: Middle-aged male, lying in bed, in no acute distress. VITAL SIGNS: Blood pressure 131/86, pulse 57, respirations 20, temperature 98 degrees Fahrenheit, and O2 saturation is 97% on room air. HEENT: Pupils equal, round, and reacting to light and accommodation. Extraocular muscles intact. No icterus. No pallor. No oral thrush. No pharyngeal congestion. NECK: Supple. No JVD. LUNGS: Bilateral vesicular breath sounds. No wheezing. No rhonchi. CARDIOVASCULAR SYSTEM: S1 and S2 present, regular. ABDOMEN: Soft and nontender. Bowel sounds present. No guarding, no rigidity, and no rebound tenderness noted. CENTRAL NERVOUS SYSTEM: Alert, awake, and oriented x 3. No focal deficits noted. EXTREMITIES: No pedal edema. Palpable peripheral pulses. MEDICATIONS: Include DuoNeb every 6 hours, Norvasc 10 mg daily, Brovana 15 mcg inhalation every 12 hours, aspirin 81 mg daily, Pulmicort every 12 hours, Catapres 0.5 mg p.o. b.i.d., Lasix 40 mg IV push daily, Amaryl 2 mg p.o. before meals daily, losartan 100 mg daily, metformin 500 mg p.o. b.i.d., Toprol-XL 100 mg daily, Singulair 10 mg p.o. at bedtime, Zoloft 200 mg daily, and trazodone 50 mg daily. LABORATORY DATA: Accu-Cheks: 151, 166, 161, 174, and 154. ASSESSMENT AND PLAN: A middle-aged male with history of coronary artery disease, cardiomyopathy, status post implantable cardioverter-defibrillator placement, status post cardiac catheterization, hypertension, hyperlipidemia, diabetes mellitus, and depression. Admitted for chest pain, acute coronary syndrome ruled out by negative cardiac enzymes, congestive heart failure, fired automatic implantable cardioverter-defibrillator x1 with persistent symptoms of shortness breath despite increasing Lasix. Awaiting for cardiology evaluation. Pulmonary consult appreciated. Continue with other current therapy. Repeat labs in the morning. Sheila Cruz MD [facility] # [id number]
[2018-12-15] MEDS: Albuterol-Ipratrop 3 mg / 0.5 (3 ml) UD INH SCH ×4 (01:20→19:26)
[2018-12-15 06:55] LABS: BASO % 0.6 % (0.0-2.0); EOS # 0.3 K/uL (0.0-0.7); EOS % 4.1 % (0.0-4.0); HEMOGLOBIN 15.8 g/dL (12.0-18.0); LYMPH # 1.7 K/uL (1.0-4.3); LYMPH % 24.2 % (20.0-40.0); MEAN CELL VOLUME 83.4 fL (80.0-94.0); MEAN CORPUSCULAR HEMOGLOBIN 28.1 pg (27.0-31.0); MEAN CORPUSCULAR HGB CONC 33.8 g/dL (33.0-37.0); MEAN PLATELET VOLUME 10.6 fL (7.2-11.7); MONO # 0.5 K/uL (0.0-0.8); MONO % 7.1 % (0.0-10.0); NEUT # 4.6 K/uL (1.8-7.0); NRBC % 0.1 % (0.0-2.0); RBC 5.6 Mil/uL (4.40-5.90); RED CELL DISTRIBUTION WIDTH 15.3 % (11.5-14.5); WHITE BLOOD COUNT 7.1 K/uL (4.8-10.8)
[2018-12-15 07:35] LABS: ALB/GLOB RATIO 1.3 (1.0-2.1); ALBUMIN 3.8 g/dL (3.5-5.0); ALT/SGPT 249 U/L (21-72); AST/SGOT 391 U/L (17-59); BLOOD UREA NITROGEN 16 mg/dL (9-20); CALCIUM 9.1 mg/dl (8.6-10.4); GFR NON-AFRICAN AMERICAN > 60
[2018-12-15] MEDS: Budesonide 0.5 mg/2 ml Inhal Susp UD INH SCH ×2 (07:40→19:26)
[2018-12-15] MEDS: (Novolin R) Insulin Human Regular 100 units/ml vial SC SCH ×4 (08:09→21:24)
[2018-12-15] MEDS: Arformoterol 15 mcg/2 ml Inh Sol INH SCH ×2 (09:40→19:26)
--- NOTE | 2018-12-15 09:58 | CP.PCM.PN ---
Subjective - Date & Time of Evaluation Date of Evaluation: 12/15/18 Time of Evaluation: 09:58 - Subjective Subjective: Progress note dictated #[id number] Objective - Vital Signs/Intake and Output Vital Signs (last 24 hours): Temp Pulse Resp BP Pulse Ox 98.0 F 60 20 138/89 97 12/15/18 07:10 12/15/18 07:36 12/15/18 07:10 12/15/18 07:10 12/15/18 07:10 - Medications Medications: Current Medications Albuterol/Ipratropium (Duoneb 3 Mg/0.5 Mg (3 Ml) Ud) 3 ml INH RQ6 [facility] Last Admin: 12/15/18 01:20 Dose: 3 ml Amlodipine Besylate (Norvasc) 10 mg PO DAILY [facility] Last Admin: 12/14/18 09:03 Dose: 10 mg Arformoterol Tartrate (Brovana) 15 mcg INH RQ12@1000,2200 [facility] Last Admin: 12/14/18 19:31 Dose: 15 mcg Aspirin (Aspirin Chewable) 81 mg PO DAILY [facility] Last Admin: 12/14/18 09:04 Dose: 81 mg Budesonide (Pulmicort Respules) 0.5 mg INH RQ12 [facility] Last Admin: 12/14/18 19:31 Dose: 0.5 mg Clonidine HCl (Catapres) 0.2 mg PO BID [facility] Last Admin: 12/14/18 17:06 Dose: 0.2 mg Furosemide (Lasix) 40 mg IVP DAILY [facility] Last Admin: 12/14/18 09:03 Dose: 40 mg Glimepiride (Amaryl) 2 mg PO ACBD [facility] Last Admin: 12/15/18 08:09 Dose: 2 mg Heparin Sodium (Porcine) (Heparin) 5,000 units SC Q12 [facility] Last Admin: 12/14/18 21:48 Dose: 5,000 units Insulin Human Regular (Novolin R) 0 unit SC ACHS [facility]; Protocol Last Admin: 12/15/18 08:09 Dose: 1 unit Losartan Potassium (Cozaar) 100 mg PO DAILY [facility] Last Admin: 12/14/18 09:03 Dose: 100 mg Metformin HCl (Glucophage) 500 mg PO BIDCC [facility] Last Admin: 12/15/18 08:09 Dose: 500 mg Metoprolol Succinate (Toprol Xl) 100 mg PO DAILY [facility] Last Admin: 12/14/18 09:03 Dose: 100 mg Montelukast Sodium (Singulair) 10 mg PO HS [facility] Last Admin: 12/14/18 21:48 Dose: 10 mg Potassium Chloride (K-Dur 20 Meq Er Tab) 40 meq PO ONCE ONE Stop: 12/15/18 10:01 Sertraline HCl (Zoloft) 200 mg PO DAILY [facility] Last Admin: 12/14/18 09:03 Dose: 200 mg Simethicone (Mylicon Liq) 40 mg PO QID [facility] Stop: 12/16/18 10:01 Trazodone HCl (Desyrel) 50 mg PO DAILY [facility] Last Admin: 12/14/18 09:03 Dose: 50 mg - Labs Labs: 12/15/18 06:45 12/15/18 06:45 PT 11.0 SECONDS (9.7-12.2) 12/11/18 23:33 INR 1.0 12/11/18 23:33 APTT 31.0 SECONDS (21-34) 12/11/18 23:33
[2018-12-15] MEDS ORDERED: Potassium Chloride 20 mEq ER Tab PO ONE (10:00)
[2018-12-15] MEDS: Metoprolol Succinate 100 mg XL Tab PO SCH (10:18)
[2018-12-15] MEDS: Simethicone 40 mg/0.6 ml Liquid (30 ml) PO SCH ×4 (10:34→21:48)
--- NOTE | 2018-12-15 13:23 | US ---
Date of service: 12/15/2018 HISTORY: abnormal lft's COMPARISON: None. TECHNIQUE: Sonographic evaluation of the abdomen. FINDINGS: LIVER: Measures 17.9 cm. Diffusely increased echogenicity of the liver parenchyma. Consistent with fatty infiltration. Smooth contour. No mass. No biliary ductal dilatation. GALLBLADDER: Unremarkable. No gallstones. COMMON BILE DUCT: Measures 3 mm. No stones. No dilatation. PANCREAS: Unremarkable as visualized. No mass. No ductal dilatation. RIGHT KIDNEY: Measures 12.1cm. Normal echogenicity. No calculus, mass, or hydronephrosis. LEFT KIDNEY: Measures 11.6cm. Normal echogenicity. No calculus, mass, or hydronephrosis. SPLEEN: Normal in size and contour. No mass. AORTA: No aneurysmal dilatation. IVC: Unremarkable. OTHER FINDINGS: None. IMPRESSION: Fatty infiltration of the liver. Otherwise unremarkable examination.
--- NOTE | 2018-12-15 15:22 | CP.PCM.PN ---
Subjective - Date & Time of Evaluation Date of Evaluation: 12/15/18 Time of Evaluation: 15:00 - Subjective Subjective: Patient seen and examined Still complaining of cough and dyspnea on exertion Afebrile No further chest pain Objective - Vital Signs/Intake and Output Vital Signs (last 24 hours): Temp Pulse Resp BP Pulse Ox 98.0 F 60 20 165/110 H 97 12/15/18 07:10 12/15/18 07:36 12/15/18 07:10 12/15/18 10:19 12/15/18 07:10 - Medications Medications: Current Medications Albuterol/Ipratropium (Duoneb 3 Mg/0.5 Mg (3 Ml) Ud) 3 ml INH RQ6 [facility] Last Admin: 12/15/18 13:22 Dose: 3 ml Amlodipine Besylate (Norvasc) 10 mg PO DAILY [facility] Last Admin: 12/15/18 10:18 Dose: 10 mg Arformoterol Tartrate (Brovana) 15 mcg INH RQ12@1000,2200 [facility] Last Admin: 12/15/18 09:40 Dose: 15 mcg Aspirin (Aspirin Chewable) 81 mg PO DAILY [facility] Last Admin: 12/15/18 10:18 Dose: 81 mg Budesonide (Pulmicort Respules) 0.5 mg INH RQ12 [facility] Last Admin: 12/15/18 07:40 Dose: 0.5 mg Clonidine HCl (Catapres) 0.2 mg PO BID [facility] Last Admin: 12/15/18 10:18 Dose: 0.2 mg Furosemide (Lasix) 40 mg IVP DAILY [facility] Last Admin: 12/15/18 10:19 Dose: 40 mg Glimepiride (Amaryl) 2 mg PO ACBD [facility] Last Admin: 12/15/18 08:09 Dose: 2 mg Insulin Human Regular (Novolin R) 0 unit SC ACHS [facility]; Protocol Last Admin: 12/15/18 13:10 Dose: 1 unit Losartan Potassium (Cozaar) 100 mg PO DAILY [facility] Last Admin: 12/15/18 10:19 Dose: 100 mg Metformin HCl (Glucophage) 500 mg PO BIDCC [facility] Last Admin: 12/15/18 08:09 Dose: 500 mg Metoprolol Succinate (Toprol Xl) 100 mg PO DAILY [facility] Last Admin: 12/15/18 10:18 Dose: 100 mg Montelukast Sodium (Singulair) 10 mg PO HS [facility] Last Admin: 12/14/18 21:48 Dose: 10 mg Sertraline HCl (Zoloft) 200 mg PO DAILY [facility] Last Admin: 12/15/18 10:18 Dose: 200 mg Simethicone (Mylicon Liq) 40 mg PO QID [facility] Stop: 12/16/18 10:01 Last Admin: 12/15/18 14:46 Dose: 40 mg Trazodone HCl (Desyrel) 50 mg PO DAILY [facility] Last Admin: 12/15/18 10:18 Dose: 50 mg - Labs Labs: 12/15/18 06:45 12/15/18 06:45 PT 11.0 SECONDS (9.7-12.2) 12/11/18 23:33 INR 1.0 12/11/18 23:33 APTT 31.0 SECONDS (21-34) 12/11/18 23:33 - Head Exam Head Exam: ATRAUMATIC, NORMOCEPHALIC - ENT Exam ENT Exam: Mucous Membranes Moist - Neck Exam Neck Exam: Normal Inspection - Respiratory Exam Respiratory Exam: Rhonchi, Wheezes - Cardiovascular Exam Cardiovascular Exam: REGULAR RHYTHM - GI/Abdominal Exam GI & Abdominal Exam: Soft, Normal Bowel Sounds - Extremities Exam Extremities Exam: Normal Inspection - Neurological Exam Neurological Exam: Alert, Oriented x3 Assessment and Plan (1) COPD exacerbation Assessment & Plan: Continue with the steroids, nebulizer treatment and antibiotics Mucolytic's Status: Acute
--- NOTE | 2018-12-15 18:04 | PN ---
DATE: 12/15/2018 ENDOCRINOLOGY FOLLOWUP NOTE LOCATION: In room 663. SUBJECTIVE: This is a 53-year-old male with recent uncontrolled type 2 diabetes, presenting with precordial chest pain, undergoing cardiac workup at this time and is now being followed closely for metabolic management. His glycemic levels are fluctuating, but improved and the glucose values have ranged from 159 to 162 and 170 mg/dL. LABORATORY DATA: His chemistry showed BUN of 16, sodium 133, potassium 3.4, chloride 95, CO2 of 30, glucose 143, and creatinine 0.9. ASSESSMENT: This is a 53-year-old male with uncontrolled type 2 diabetes, presenting with acute coronary syndrome, undergoing cardiac workup and management and is also being followed closely for metabolic management. PLAN OF MANAGEMENT: We will continue the metformin given as 500 mg b.i.d. with meals as ordered. We will continue also the low-dose correction scale using Novolog insulin for overt hypoglycemia and . We will obtain serial chemistries and supplement accordingly as needed. We will follow. Bertha Carr MD
--- NOTE | 2018-12-15 19:51 | CP.PCM.CON ---
History of Present Illness - History of Present Illness History of Present Illness: CC: Chest Pain and AICD [id number] 52 year old male with PMHx of HTN, CHF w/ EF 35%, psychiatric illness presents to the ED c/o chest pain, dyspnea on exertion for the last couple of days. Patient describes chest pain as tightness. Patient denies fever, chills, palpitations, weakness, numbness. Chief Complaint (Nursing): Shortness Of Breath History Per: Patient History/Exam Limitations: no limitations Onset/Duration Of Symptoms: Days Current Symptoms Are (Timing): Still Present Initiating Event: Upper Respiratory Illness Quality: Tightness Associated Symptoms: Chest Pain Recent travel outside of the [place]: No Additional History Per: Patient Past Medical History Reviewed: Historical Data, Nursing Documentation, Vital Signs Vital Signs: Last Vital Signs Temp 99 F 12/11/18 23:02 Pulse 90 12/11/18 23:02 Resp 18 12/11/18 23:02 BP 200/117 H 12/11/18 23:02 Pulse Ox 94 L 12/11/18 23:02 Primary Care Provider: Clinic,Med Surg - Medical History PMH: Asthma, CHF, HTN, Hypercholesterolemia, Schizophrenia Denies: HIV, Chronic Kidney Disease, Seizures, Sexually Transmitted Disease Surgical History: Pacemaker (w/ defibrillator) - [facility] Procedures DETOXIFICATION SERVICES FOR SUBSTANCE ABUSE TREATMENT (01/26/16) DIPHTHERIA TOXOID ADMIN (01/01/14) INSERTION OF ENDOTRACHEAL AIRWAY INTO TRACHEA, VIA OPENING (01/26/16) RESPIRATORY VENTILATION, GREATER THAN 96 CONSECUTIVE HOURS (01/26/16) TETANUS TOXOID ADMINIST (01/01/14) Family History: States: Unknown Family Hx - Social History Hx Tobacco Use: Yes Hx Alcohol Use: No Hx Substance Use: No - Immunization History Hx Tetanus Toxoid Vaccination: No Hx Influenza Vaccination: Yes Hx Pneumococcal Vaccination: Yes Review Of Systems Constitutional: Negative for: Fever, Chills Cardiovascular: Positive for: Chest Pain. Negative for: Palpitations Respiratory: Positive for: Shortness of Breath, SOB with Excertion. Negative for: Cough Gastrointestinal: Negative for: Nausea, Vomiting, Abdominal Pain Skin: Negative for: Rash Neurological: Negative for: Weakness, Numbness, Headache, Dizziness Physical Exam - Physical Exam Appears: Non-toxic, No Acute Distress Skin: Normal Color, Warm, Dry Head: Atraumatic, Normacephalic Eye(s): bilateral: Normal Inspection Oral Mucosa: Moist Neck: Normal ROM, Supple Chest: Symmetrical Cardiovascular: Rhythm Regular Respiratory: Rales (mild at bases), No Rhonchi, No Wheezing Gastrointestinal/Abdominal: Soft, No Tenderness, No Distention Extremity: Normal ROM, No Tenderness, No Pedal Edema Neurological/Psych: Oriented x3, Normal Speech, Normal Cognition Gait: Steady Past Patient History - Infectious Disease Hx of Infectious Diseases: None - Tetanus Immunizations Tetanus Immunization: Unknown - Past Medical History & Family History Past Medical History?: Yes - Past Social History Smoking Status: Heavy Smoker > 10 Cigarettes Daily - CARDIAC Hx Congestive Heart Failure: Yes Hx Hypercholesterolemia: Yes Hx Hypertension: Yes Hx Pacemaker: Yes (w/ defibrillator) - PULMONARY Hx Asthma: Yes - NEUROLOGICAL Hx Seizures: No - HEENT Hx HEENT Problems: No - RENAL Hx Chronic Kidney Disease: No - ENDOCRINE/METABOLIC Hx Endocrine Disorders: Yes Other/Comment: Diabetes - HEMATOLOGICAL/ONCOLOGICAL Hx Human Immunodeficiency Virus (HIV): No - INTEGUMENTARY Hx Dermatological Problems: No - MUSCULOSKELETAL/RHEUMATOLOGICAL Hx Falls: Yes - GASTROINTESTINAL Hx Gastrointestinal Disorders: No - GENITOURINARY/GYNECOLOGICAL Hx Sexually Transmitted Disorders: No - PSYCHIATRIC Hx Substance Use: No - SURGICAL HISTORY Hx Surgeries: Yes Hx Cardiac Catheterization: Yes - ANESTHESIA Hx Anesthesia: Yes Hx Anesthesia Reactions: No Hx Malignant Hyperthermia: No Has any member of the family had a problem w/ anesthesia?: No Meds Allergies/Adverse Reactions: Allergies Allergy/AdvReac Type Severity Reaction Status Date / Time No Known Allergies Allergy Verified 12/11/18 23:06 - Medications Medications: Current Medications Albuterol/Ipratropium (Duoneb 3 Mg/0.5 Mg (3 Ml) Ud) 3 ml INH RQ6 [facility] Last Admin: 12/15/18 19:26 Dose: 3 ml Amlodipine Besylate (Norvasc) 10 mg PO DAILY [facility] Last Admin: 12/15/18 10:18 Dose: 10 mg Arformoterol Tartrate (Brovana) 15 mcg INH RQ12@1000,2200 [facility] Last Admin: 12/15/18 09:40 Dose: 15 mcg Aspirin (Aspirin Chewable) 81 mg PO DAILY [facility] Last Admin: 12/15/18 10:18 Dose: 81 mg Budesonide (Pulmicort Respules) 0.5 mg INH RQ12 [facility] Last Admin: 12/15/18 19:26 Dose: 0.5 mg Clonidine HCl (Catapres) 0.2 mg PO BID [facility] Last Admin: 12/15/18 18:03 Dose: 0.2 mg Famotidine (Pepcid) 20 mg PO BID [facility] Last Admin: 12/15/18 19:29 Dose: 20 mg Furosemide (Lasix) 40 mg IVP DAILY [facility] Last Admin: 12/15/18 10:19 Dose: 40 mg Glimepiride (Amaryl) 2 mg PO ACBD [facility] Last Admin: 12/15/18 16:35 Dose: 2 mg Insulin Human Regular (Novolin R) 0 unit SC ACHS [facility]; Protocol Last Admin: 12/15/18 18:02 Dose: 1 unit Losartan Potassium (Cozaar) 100 mg PO DAILY [facility] Last Admin: 12/15/18 10:19 Dose: 100 mg Metformin HCl (Glucophage) 500 mg PO BIDCC [facility] Last Admin: 12/15/18 16:36 Dose: 500 mg Methylprednisolone (Solu-Medrol) 40 mg IVP Q12 [facility] Metoprolol Succinate (Toprol Xl) 100 mg PO DAILY [facility] Last Admin: 12/15/18 10:18 Dose: 100 mg Montelukast Sodium (Singulair) 10 mg PO HS [facility] Last Admin: 12/14/18 21:48 Dose: 10 mg Sertraline HCl (Zoloft) 200 mg PO DAILY [facility] Last Admin: 12/15/18 10:18 Dose: 200 mg Simethicone (Mylicon Liq) 40 mg PO QID [facility] Stop: 12/16/18 10:01 Last Admin: 12/15/18 18:02 Dose: 40 mg Trazodone HCl (Desyrel) 50 mg PO DAILY [facility] Last Admin: 12/15/18 10:18 Dose: 50 mg Results - Vital Signs Recent Vital Signs: Last Vital Signs Temp 98.4 F 12/15/18 16:00 Pulse 65 12/15/18 16:00 Resp 20 12/15/18 16:00 BP 131/86 12/15/18 16:00 Pulse Ox 96 12/15/18 16:00 - Labs Result Diagrams: 12/15/18 06:45 12/15/18 06:45 Labs: Laboratory Results - last 24 hr 12/14/18 12/15/18 12/15/18 21:06 06:22 06:45 WBC 7.1 RBC 5.60 Hgb 15.8 Hct 46.7 MCV 83.4 MCH 28.1 MCHC 33.8 RDW 15.3 H Plt Count 172 MPV 10.6 Neut % (Auto) 64.0 Lymph % (Auto) 24.2 [place] % (Auto) 7.1 Eos % (Auto) 4.1 H Baso % (Auto) 0.6 Neut # (Auto) 4.6 Lymph # (Auto) 1.7 [place] # (Auto) 0.5 Eos # (Auto) 0.3 Baso # (Auto) 0.0 Sodium Potassium Chloride Carbon Dioxide Anion Gap BUN Creatinine Est GFR ( Amer) Est GFR (Non-Af Amer) POC Glucose (mg/dL) 178 H 162 H Random Glucose Calcium Phosphorus Magnesium Total Bilirubin AST ALT Alkaline Phosphatase Total Protein Albumin Globulin Albumin/Globulin Ratio 12/15/18 12/15/18 06:45 11:11 WBC RBC Hgb Hct MCV MCH MCHC RDW Plt Count MPV Neut % (Auto) Lymph % (Auto) [place] % (Auto) Eos % (Auto) Baso % (Auto) Neut # (Auto) Lymph # (Auto) [place] # (Auto) Eos # (Auto) Baso # (Auto) Sodium 133 Potassium 3.4 L Chloride 95 L Carbon Dioxide 30 Anion Gap 12 BUN 16 Creatinine 0.9 Est GFR ( Amer) > 60 Est GFR (Non-Af Amer) > 60 POC Glucose (mg/dL) 159 H Random Glucose 143 H Calcium 9.1 Phosphorus 4.1 Magnesium 1.9 Total Bilirubin 1.5 H AST 391 H D ALT 249 H D Alkaline Phosphatase 67 Total Protein 6.7 Albumin 3.8 Globulin 2.9 Albumin/Globulin Ratio 1.3 Assessment & Plan - Assessment and Plan (Free Text) Assessment: [facility] CMP s/p AICD AICD shock Dyspne and chest pain Will evaluated Check AICD
[2018-12-15] MEDS: MethylPREDNISolone 40 mg Vial IVP SCH (21:48)
--- NOTE | 2018-12-15 23:02 | CP.PCM.PN ---
Subjective - Date & Time of Evaluation Date of Evaluation: 12/15/18 Time of Evaluation: 15:15 - Subjective Subjective: Patient and evaluated No new events noted Review Of Systems Constitutional: Negative for: Fever, Chills Cardiovascular: Positive for: Chest Pain. Negative for: Palpitations Respiratory: Positive for: Shortness of Breath, SOB with Excertion. Negative for: Cough Gastrointestinal: Negative for: Nausea, Vomiting, Abdominal Pain Skin: Negative for: Rash Neurological: Negative for: Weakness, Numbness, Headache, Dizziness Physical Exam - Physical Exam Appears: Non-toxic, No Acute Distress Skin: Normal Color, Warm, Dry Head: Atraumatic, Normacephalic Eye(s): bilateral: Normal Inspection Oral Mucosa: Moist Neck: Normal ROM, Supple Chest: Symmetrical Cardiovascular: Rhythm Regular Respiratory: Rales (mild at bases), No Rhonchi, No Wheezing Gastrointestinal/Abdominal: Soft, No Tenderness, No Distention Extremity: Normal ROM, No Tenderness, No Pedal Edema Neurological/Psych: Oriented x3, Normal Speech, Normal Cognition Gait: Steady Objective - Vital Signs/Intake and Output Vital Signs (last 24 hours): Temp Pulse Resp BP Pulse Ox 98.4 F 65 20 131/86 96 12/15/18 16:00 12/15/18 16:00 12/15/18 16:00 12/15/18 16:00 12/15/18 16:00 - Medications Medications: Current Medications Albuterol/Ipratropium (Duoneb 3 Mg/0.5 Mg (3 Ml) Ud) 3 ml INH RQ6 [facility] Last Admin: 12/15/18 19:26 Dose: 3 ml Amlodipine Besylate (Norvasc) 10 mg PO DAILY [facility] Last Admin: 12/15/18 10:18 Dose: 10 mg Arformoterol Tartrate (Brovana) 15 mcg INH RQ12@1000,2200 [facility] Last Admin: 12/15/18 19:26 Dose: 15 mcg Aspirin (Aspirin Chewable) 81 mg PO DAILY [facility] Last Admin: 12/15/18 10:18 Dose: 81 mg Budesonide (Pulmicort Respules) 0.5 mg INH RQ12 [facility] Last Admin: 12/15/18 19:26 Dose: 0.5 mg Clonidine HCl (Catapres) 0.2 mg PO BID [facility] Last Admin: 12/15/18 18:03 Dose: 0.2 mg Famotidine (Pepcid) 20 mg PO BID [facility] Last Admin: 12/15/18 19:29 Dose: 20 mg Furosemide (Lasix) 40 mg IVP DAILY [facility] Last Admin: 12/15/18 10:19 Dose: 40 mg Glimepiride (Amaryl) 2 mg PO ACBD [facility] Last Admin: 12/15/18 16:35 Dose: 2 mg Insulin Human Regular (Novolin R) 0 unit SC ACHS [facility]; Protocol Last Admin: 12/15/18 21:24 Dose: Not Given Losartan Potassium (Cozaar) 100 mg PO DAILY [facility] Last Admin: 12/15/18 10:19 Dose: 100 mg Metformin HCl (Glucophage) 500 mg PO BIDCC [facility] Last Admin: 12/15/18 16:36 Dose: 500 mg Methylprednisolone (Solu-Medrol) 40 mg IVP Q12 [facility] Last Admin: 12/15/18 21:48 Dose: 40 mg Metoprolol Succinate (Toprol Xl) 100 mg PO DAILY [facility] Last Admin: 12/15/18 10:18 Dose: 100 mg Montelukast Sodium (Singulair) 10 mg PO HS [facility] Last Admin: 12/15/18 21:48 Dose: 10 mg Sertraline HCl (Zoloft) 200 mg PO DAILY [facility] Last Admin: 12/15/18 10:18 Dose: 200 mg Simethicone (Mylicon Liq) 40 mg PO QID [facility] Stop: 12/16/18 10:01 Last Admin: 12/15/18 21:48 Dose: 40 mg Trazodone HCl (Desyrel) 50 mg PO DAILY [facility] Last Admin: 12/15/18 10:18 Dose: 50 mg - Labs Labs: 12/15/18 06:45 12/15/18 06:45 PT 11.0 SECONDS (9.7-12.2) 12/11/18 23:33 INR 1.0 12/11/18 23:33 APTT 31.0 SECONDS (21-34) 12/11/18 23:33 Assessment and Plan - Assessment and Plan (Free Text) Assessment: [facility] CMP s/p AICD AICD shock Dyspne and chest pain Trop negative
--- NOTE | 2018-12-15 23:05 | PN ---
DATE: 12/15/2018 SUBJECTIVE: The patient is seen and examined at bedside. The patient still complains of dyspnea on exertion and cough. Denies any chest pain. Denies any other symptoms. PHYSICAL EXAMINATION: GENERAL: Middle-aged obese male, lying in bed, in no acute distress. VITAL SIGNS: Blood pressure 165/110, respirations 20, temperature 98 degrees Fahrenheit, O2 sat is 96% on room air, pulse 60. HEENT: Pupils equal, round, and reacting to light and accommodation. Extraocular muscles intact. No icterus. No pallor. No oral thrush. No pharyngeal congestion. NECK: Supple. No JVD. LUNGS: Bilateral vesicular breath sounds. No wheezing. No rhonchi. CARDIOVASCULAR SYSTEM: S1 and S2 present, regular. ABDOMEN: Soft and nontender. Bowel sounds present. No guarding, no rigidity, and no rebound tenderness noted. CENTRAL NERVOUS SYSTEM: Alert, awake, and oriented x 3. No focal deficits noted. EXTREMITIES: No edema. Palpable peripheral pulses. MEDICATIONS: Include DuoNeb every 6 hours, amlodipine 10 mg daily, arformoterol 15 mcg every 12 hours, aspirin 81 mg daily, Pulmicort every 12 hours, Catapres 0.2 mg b.i.d., Lasix 40 mg IV push daily, Amaryl 2 mg p.o. before meals daily, Cozaar 100 mg daily, Glucophage 500 mg p.o. b.i.d., Toprol-XL 100 mg daily, Singulair 10 mg p.o. at bedtime, Zoloft 200 mg daily, and trazodone 50 mg daily. LABORATORY DATA: Labs done from this morning: WBC 7.1, hemoglobin 15.8, hematocrit 46.7, platelets 172. Sodium 133, potassium 3.4, chloride 95, bicarb 30, BUN 16, creatinine 0.9, glucose 162, calcium 9.1, phosphorus 4.1, magnesium 1.9. Total bilirubin 1.5, AST 391, ALT 249. Ultrasound of the abdomen: Fatty infiltration of the liver. Otherwise unremarkable. ASSESSMENT AND PLAN: Middle-aged male with history of coronary artery disease, cardiomyopathy, status post cardiac catheterization, status post implantable cardioverter-defibrillator placement, status post firing of automatic implantable cardioverter-defibrillator prior to admission, hypertension, hyperlipidemia, diabetes mellitus, depression. Admitted for chest pain and persistent shortness of breath, possible chronic obstructive pulmonary disease exacerbation. We will start low-dose steroids. Awaiting for cardiology evaluation. We will follow up with Pulmonary. We will add Pepcid for gastrointestinal prophylaxis. Continue with other cardiac medications. The patient needs implantable cardioverter-defibrillator interrogation. We will follow up with Cardiology. Sheila Cruz MD
[2018-12-16] MEDS: Albuterol-Ipratrop 3 mg / 0.5 (3 ml) UD INH SCH ×4 (01:04→19:42)
[2018-12-16] MEDS: (Novolin R) Insulin Human Regular 100 units/ml vial SC SCH ×4 (08:05→21:45)
[2018-12-16] MEDS: Budesonide 0.5 mg/2 ml Inhal Susp UD INH SCH ×2 (08:17→19:43)
[2018-12-16] MEDS: Arformoterol 15 mcg/2 ml Inh Sol INH SCH ×2 (09:48→21:48)
[2018-12-16] MEDS: Metoprolol Succinate 100 mg XL Tab PO SCH (10:23)
[2018-12-16] MEDS: MethylPREDNISolone 40 mg Vial IVP SCH ×2 (10:23→21:37)
[2018-12-16] MEDS ORDERED: Simethicone 40 mg/0.6 ml Liquid (30 ml) PO PRN (11:32)
--- NOTE | 2018-12-16 11:34 | CP.PCM.PN ---
Subjective - Date & Time of Evaluation Date of Evaluation: 12/16/18 Time of Evaluation: 11:25 - Subjective Subjective: Progress note dictated #[id number] Objective - Vital Signs/Intake and Output Vital Signs (last 24 hours): Temp Pulse Resp BP Pulse Ox 99.3 F 74 20 150/93 H 97 12/16/18 08:21 12/16/18 08:21 12/16/18 08:21 12/16/18 10:23 12/16/18 08:21 - Medications Medications: Current Medications Albuterol/Ipratropium (Duoneb 3 Mg/0.5 Mg (3 Ml) Ud) 3 ml INH RQ6 [facility] Last Admin: 12/16/18 08:17 Dose: 3 ml Amlodipine Besylate (Norvasc) 10 mg PO DAILY [facility] Last Admin: 12/16/18 10:23 Dose: 10 mg Arformoterol Tartrate (Brovana) 15 mcg INH RQ12@1000,2200 [facility] Last Admin: 12/16/18 09:48 Dose: 15 mcg Aspirin (Aspirin Chewable) 81 mg PO DAILY [facility] Last Admin: 12/16/18 10:23 Dose: 81 mg Budesonide (Pulmicort Respules) 0.5 mg INH RQ12 [facility] Last Admin: 12/16/18 08:17 Dose: 0.5 mg Clonidine HCl (Catapres) 0.2 mg PO BID [facility] Last Admin: 12/16/18 09:13 Dose: Not Given Famotidine (Pepcid) 20 mg PO BID [facility] Last Admin: 12/16/18 10:23 Dose: 20 mg Furosemide (Lasix) 40 mg IVP DAILY [facility] Last Admin: 12/16/18 10:23 Dose: 40 mg Glimepiride (Amaryl) 2 mg PO ACBD [facility] Last Admin: 12/16/18 08:06 Dose: 2 mg Insulin Human Regular (Novolin R) 0 unit SC ACHS [facility]; Protocol Last Admin: 12/16/18 08:05 Dose: 2 unit Losartan Potassium (Cozaar) 100 mg PO DAILY [facility] Last Admin: 12/16/18 10:23 Dose: 100 mg Metformin HCl (Glucophage) 500 mg PO BIDCC [facility] Last Admin: 12/16/18 08:05 Dose: 500 mg Methylprednisolone (Solu-Medrol) 40 mg IVP Q12 [facility] Last Admin: 12/16/18 10:23 Dose: 40 mg Metoprolol Succinate (Toprol Xl) 100 mg PO DAILY [facility] Last Admin: 12/16/18 10:23 Dose: 100 mg Montelukast Sodium (Singulair) 10 mg PO HS [facility] Last Admin: 12/15/18 21:48 Dose: 10 mg Sertraline HCl (Zoloft) 200 mg PO DAILY [facility] Last Admin: 12/16/18 10:22 Dose: 200 mg Trazodone HCl (Desyrel) 50 mg PO DAILY [facility] Last Admin: 12/16/18 10:23 Dose: 50 mg - Labs Labs: 12/15/18 06:45 12/15/18 06:45 PT 11.0 SECONDS (9.7-12.2) 12/11/18 23:33 INR 1.0 12/11/18 23:33 APTT 31.0 SECONDS (21-34) 12/11/18 23:33
--- NOTE | 2018-12-16 12:19 | PN ---
DATE: 12/16/2018 ENDOCRINOLOGY FOLLOWUP NOTE LOCATION: In room 663. SUBJECTIVE: This is a 53-year-old male with recent uncontrolled type 2 diabetes, presenting here with precordial chest pain on the background of significant cardiac vasculopathy with underlying cardiomyopathy and with the pacemaker defibrillator insertion in place and is now being followed closely for metabolic management. His glycemic levels are fluctuating, but improved, and the glucose levels overnight have ranged from 136-211 mg per dL. LABORATORY DATA: His chemistry showed BUN of 16, sodium 133, potassium 3.4, chloride 95, CO2 of 30, glucose 143, and creatinine 0.9. He has elevated liver transaminases as noted. His hemoglobin A1c is 9.4% as noted. ASSESSMENT: This is a 53-year-old male with uncontrolled type 2 diabetes with significant cardiac vasculopathy and coronary artery disease with dilated cardiomyopathy and cardiac tachyarrhythmias with a defibrillator and pacemaker in place as noted, presenting here with precordial chest pain and undergoing cardiac workup at this time. PLAN OF MANAGEMENT: We will continue the metformin given as 500 mg b.i.d. with meals as ordered. We will also continue the low-dose correction scale using Novolin regular insulin as given. We will also continue his Amaryl given as 2 mg b.i.d. before meals as ordered. He also has ongoing Solu-Medrol given as 40 mg every 12 hours as ordered. We will obtain serial chemistries and supplement accordingly as needed. We will follow. Bertha Carr MD
[2018-12-16] MEDS: guaiFENesin 600 mg ER Tab PO SCH ×2 (12:57→17:14)
[2018-12-16] MEDS: Simethicone 40 mg/0.6 ml Liquid (30 ml) PO SCH (12:58)
[2018-12-16] MEDS: Azithromycin 500 MG in Sodium Chloride 0.9% 250 ML IVPB SCH (14:26)
--- NOTE | 2018-12-16 17:58 | PN ---
DATE: 12/16/2018 SUBJECTIVE: The patient is seen and examined at bedside. The patient is complaining of persistent cough with yellowish sputum. Chest tightness is better, less shortness of breath. Denies any fever. Abdominal bloating is better with simethicone. Denies any other GI or neurologic symptoms. PHYSICAL EXAMINATION: GENERAL: Middle-aged, morbidly obese male lying in bed, denies any distress. VITAL SIGNS: Blood pressure 150/93, pulse 58, respirations 20, temperature 99.3 degrees Fahrenheit, O2 sat is 97% on room air. HEENT: Pupils equal, round, and reacting to light and accommodation. Extraocular muscles intact. No icterus. No pallor. No oral thrush. No pharyngeal congestion. NECK: Supple. No JVD. LUNGS: Bilateral vesicular breath sounds. Occasional wheezing. No rhonchi. CARDIOVASCULAR SYSTEM: S1 and S2 present, regular. ABDOMEN: Soft and nontender. Bowel sounds present. No guarding, no rigidity. No rebound tenderness noted. CENTRAL NERVOUS SYSTEM: Alert, awake, and oriented x3. No focal deficits noted. EXTREMITIES: No edema. Palpable peripheral pulses. MEDICATIONS: Include DuoNeb every 6 hours, Norvasc 10 mg daily, Brovana inhalation every 12 hours, aspirin 81 mg daily, erythromycin 500 mg daily, budesonide every 12 hours, Catapres 0.2 mg b.i.d., Pepcid 20 mg b.i.d., Lasix 40 mg daily, Amaryl 2 mg p.o. before meals daily, Mucinex 600 mg b.i.d., Cozaar 100 mg daily, metformin 500 mg b.i.d., Solu-Medrol 40 mg IV every 12 hours, metoprolol XL 100 mg daily, Singulair 10 mg daily, Zoloft 200 mg daily, trazodone 50 mg daily, simethicone 40 mg p.o. q.i.d. LABORATORY DATA: Accu-Cheks 159, 173, 136, 211, 178. ASSESSMENT AND PLAN: A middle-aged male with history of coronary artery disease, cardiomyopathy, status post automatic implantable cardioverter-defibrillator placement, status post cardiac catheterization, hypertension, hyperlipidemia, diabetes mellitus, depression, chronic obstructive pulmonary disease exacerbation, and acute bronchitis. Automatic implantable cardioverter-defibrillator interrogated and no firing on the day of admission, as per the records. Cardiology input appreciated. Pulmonary and Endocrine followup appreciated. Follow up with Cardiology. Continue with IV Solu-Medrol and IV Zithromax. Add Mucinex. We will plan discharging the patient home when cleared by Cardiology. Sheila Cruz MD
[2018-12-17] MEDS: Albuterol-Ipratrop 3 mg / 0.5 (3 ml) UD INH SCH ×4 (01:29→19:54)
[2018-12-17 08:07] LABS: BASO % 0.1 % (0.0-2.0); HEMOGLOBIN 15.6 g/dL (12.0-18.0); LYMPH # 1.2 K/uL (1.0-4.3); LYMPH % 10.2 % (20.0-40.0); MEAN CELL VOLUME 84.1 fL (80.0-94.0); MEAN CORPUSCULAR HEMOGLOBIN 27.6 pg (27.0-31.0); MEAN CORPUSCULAR HGB CONC 32.8 g/dL (33.0-37.0); MEAN PLATELET VOLUME 10.6 fL (7.2-11.7); MONO # 0.6 K/uL (0.0-0.8); MONO % 4.7 % (0.0-10.0); NEUT # 10.3 K/uL (1.8-7.0); RBC 5.67 Mil/uL (4.40-5.90); RED CELL DISTRIBUTION WIDTH 15.4 % (11.5-14.5)
[2018-12-17 08:11] LABS: WHITE BLOOD COUNT 12.1 K/uL (4.8-10.8)
[2018-12-17 08:27] LABS: ALB/GLOB RATIO 1.2 (1.0-2.1); ALT/SGPT 217 U/L (21-72); AST/SGOT 144 U/L (17-59); BLOOD UREA NITROGEN 26 mg/dL (9-20); CALCIUM 9.8 mg/dl (8.6-10.4); GFR NON-AFRICAN AMERICAN > 60
[2018-12-17] MEDS: (Novolin R) Insulin Human Regular 100 units/ml vial SC SCH ×4 (08:45→21:41)
[2018-12-17] MEDS: Arformoterol 15 mcg/2 ml Inh Sol INH SCH ×2 (09:21→21:33)
[2018-12-17] MEDS: Azithromycin 500 MG in Sodium Chloride 0.9% 250 ML IVPB SCH (09:49)
[2018-12-17] MEDS: Metoprolol Succinate 100 mg XL Tab PO SCH (09:51)
[2018-12-17] MEDS: guaiFENesin 600 mg ER Tab PO SCH ×2 (09:51→17:24)
[2018-12-17] MEDS: MethylPREDNISolone 40 mg Vial IVP SCH (09:53)
[2018-12-17] MEDS: Budesonide 0.5 mg/2 ml Inhal Susp UD INH SCH (19:55)
--- NOTE | 2018-12-17 21:21 | CP.PCM.PN ---
Subjective - Date & Time of Evaluation Date of Evaluation: 12/17/18 Time of Evaluation: 21:15 - Subjective Subjective: Progress note dictated #[id number] Objective - Vital Signs/Intake and Output Vital Signs (last 24 hours): Temp Pulse Resp BP Pulse Ox 97.9 F 64 20 143/87 95 12/17/18 15:30 12/17/18 15:30 12/17/18 15:30 12/17/18 15:30 12/17/18 15:30 - Medications Medications: Current Medications Albuterol/Ipratropium (Duoneb 3 Mg/0.5 Mg (3 Ml) Ud) 3 ml INH RQ6 [facility] Last Admin: 12/17/18 19:54 Dose: 3 ml Amlodipine Besylate (Norvasc) 10 mg PO DAILY [facility] Last Admin: 12/17/18 09:50 Dose: 10 mg Arformoterol Tartrate (Brovana) 15 mcg INH RQ12@1000,2200 [facility] Last Admin: 12/17/18 09:21 Dose: 15 mcg Aspirin (Aspirin Chewable) 81 mg PO DAILY [facility] Last Admin: 12/17/18 09:51 Dose: 81 mg Budesonide (Pulmicort Respules) 0.5 mg INH RQ12 [facility] Last Admin: 12/17/18 19:55 Dose: Not Given Clonidine HCl (Catapres) 0.2 mg PO BID [facility] Last Admin: 12/17/18 17:23 Dose: 0.2 mg Famotidine (Pepcid) 20 mg PO BID [facility] Last Admin: 12/17/18 17:24 Dose: 20 mg Furosemide (Lasix) 40 mg IVP DAILY [facility] Last Admin: 12/17/18 09:52 Dose: 40 mg Glimepiride (Amaryl) 4 mg PO ACBD [facility] Last Admin: 12/17/18 17:24 Dose: 4 mg Guaifenesin (Mucinex La) 600 mg PO BID [facility] Last Admin: 12/17/18 17:24 Dose: 600 mg Azithromycin 500 mg/ Sodium (Chloride) 250 mls @ 250 mls/hr IVPB DAILY [facility]; Protocol Last Admin: 12/17/18 09:49 Dose: 250 mls/hr Insulin Human Regular (Novolin R) 0 unit SC ACHS [facility]; Protocol Last Admin: 12/17/18 17:23 Dose: 3 unit Losartan Potassium (Cozaar) 100 mg PO DAILY [facility] Last Admin: 12/17/18 09:51 Dose: 100 mg Metformin HCl (Glucophage) 850 mg PO BIDCC [facility] Last Admin: 12/17/18 17:24 Dose: 850 mg Methylprednisolone (Solu-Medrol) 40 mg IVP Q12 [facility] Last Admin: 12/17/18 09:53 Dose: 40 mg Metoprolol Succinate (Toprol Xl) 100 mg PO DAILY [facility] Last Admin: 12/17/18 09:51 Dose: 100 mg Montelukast Sodium (Singulair) 10 mg PO HS [facility] Last Admin: 12/16/18 21:37 Dose: 10 mg Sertraline HCl (Zoloft) 200 mg PO DAILY [facility] Last Admin: 12/17/18 09:50 Dose: 200 mg Simethicone (Mylicon Liq) 40 mg PO QID PRN PRN Reason: Dyspepsia Trazodone HCl (Desyrel) 50 mg PO DAILY [facility] Last Admin: 12/17/18 09:53 Dose: 50 mg - Labs Labs: 12/17/18 07:49 12/17/18 07:49 PT 11.0 SECONDS (9.7-12.2) 12/11/18 23:33 INR 1.0 12/11/18 23:33 APTT 31.0 SECONDS (21-34) 12/11/18 23:33
--- NOTE | 2018-12-17 23:36 | CP.PCM.PN ---
Subjective - Date & Time of Evaluation Date of Evaluation: 12/16/18 Time of Evaluation: 09:40 - Subjective Subjective: Patient seen and evaluated AICD Check: WNL Cardio f/u with Dr. Marques as out patient Objective - Vital Signs/Intake and Output Vital Signs (last 24 hours): Temp Pulse Resp BP Pulse Ox 97.9 F 64 20 143/87 95 12/17/18 15:30 12/17/18 15:30 12/17/18 15:30 12/17/18 15:30 12/17/18 15:30 - Medications Medications: Current Medications Albuterol/Ipratropium (Duoneb 3 Mg/0.5 Mg (3 Ml) Ud) 3 ml INH RQ6 [facility] Last Admin: 12/17/18 19:54 Dose: 3 ml Amlodipine Besylate (Norvasc) 10 mg PO DAILY [facility] Last Admin: 12/17/18 09:50 Dose: 10 mg Arformoterol Tartrate (Brovana) 15 mcg INH RQ12@1000,2200 [facility] Last Admin: 12/17/18 21:33 Dose: 15 mcg Aspirin (Aspirin Chewable) 81 mg PO DAILY [facility] Last Admin: 12/17/18 09:51 Dose: 81 mg Budesonide (Pulmicort Respules) 0.5 mg INH RQ12 [facility] Last Admin: 12/17/18 19:55 Dose: Not Given Clonidine HCl (Catapres) 0.2 mg PO BID [facility] Last Admin: 12/17/18 17:23 Dose: 0.2 mg Famotidine (Pepcid) 20 mg PO BID [facility] Last Admin: 12/17/18 17:24 Dose: 20 mg Furosemide (Lasix) 40 mg IVP DAILY [facility] Last Admin: 12/17/18 09:52 Dose: 40 mg Glimepiride (Amaryl) 4 mg PO ACBD [facility] Last Admin: 12/17/18 17:24 Dose: 4 mg Guaifenesin (Mucinex La) 600 mg PO BID [facility] Last Admin: 12/17/18 17:24 Dose: 600 mg Azithromycin 500 mg/ Sodium (Chloride) 250 mls @ 250 mls/hr IVPB DAILY [facility]; Protocol Last Admin: 12/17/18 09:49 Dose: 250 mls/hr Insulin Human Regular (Novolin R) 0 unit SC ACHS [facility]; Protocol Last Admin: 12/17/18 21:41 Dose: Not Given Losartan Potassium (Cozaar) 100 mg PO DAILY [facility] Last Admin: 12/17/18 09:51 Dose: 100 mg Metformin HCl (Glucophage) 850 mg PO BIDCC [facility] Last Admin: 12/17/18 17:24 Dose: 850 mg Methylprednisolone (Solu-Medrol) 40 mg IVP DAILY [facility] Metoprolol Succinate (Toprol Xl) 100 mg PO DAILY [facility] Last Admin: 12/17/18 09:51 Dose: 100 mg Montelukast Sodium (Singulair) 10 mg PO HS [facility] Last Admin: 12/17/18 22:14 Dose: 10 mg Sertraline HCl (Zoloft) 200 mg PO DAILY [facility] Last Admin: 12/17/18 09:50 Dose: 200 mg Simethicone (Mylicon Liq) 40 mg PO QID PRN PRN Reason: Dyspepsia Trazodone HCl (Desyrel) 50 mg PO DAILY [facility] Last Admin: 12/17/18 09:53 Dose: 50 mg - Labs Labs: 12/17/18 07:49 12/17/18 07:49 PT 11.0 SECONDS (9.7-12.2) 12/11/18 23:33 INR 1.0 12/11/18 23:33 APTT 31.0 SECONDS (21-34) 12/11/18 23:33
--- NOTE | 2018-12-17 23:37 | CP.PCM.PN ---
Subjective - Date & Time of Evaluation Date of Evaluation: 12/17/18 Time of Evaluation: 20:05 - Subjective Subjective: Patient seen and evaluated AICD Check: WNL Cardio f/u with Dr. Marques as out patient Objective - Vital Signs/Intake and Output Vital Signs (last 24 hours): Temp Pulse Resp BP Pulse Ox 97.9 F 64 20 143/87 95 12/17/18 15:30 12/17/18 15:30 12/17/18 15:30 12/17/18 15:30 12/17/18 15:30 - Medications Medications: Current Medications Albuterol/Ipratropium (Duoneb 3 Mg/0.5 Mg (3 Ml) Ud) 3 ml INH RQ6 [facility] Last Admin: 12/17/18 19:54 Dose: 3 ml Amlodipine Besylate (Norvasc) 10 mg PO DAILY [facility] Last Admin: 12/17/18 09:50 Dose: 10 mg Arformoterol Tartrate (Brovana) 15 mcg INH RQ12@1000,2200 [facility] Last Admin: 12/17/18 21:33 Dose: 15 mcg Aspirin (Aspirin Chewable) 81 mg PO DAILY [facility] Last Admin: 12/17/18 09:51 Dose: 81 mg Budesonide (Pulmicort Respules) 0.5 mg INH RQ12 [facility] Last Admin: 12/17/18 19:55 Dose: Not Given Clonidine HCl (Catapres) 0.2 mg PO BID [facility] Last Admin: 12/17/18 17:23 Dose: 0.2 mg Famotidine (Pepcid) 20 mg PO BID [facility] Last Admin: 12/17/18 17:24 Dose: 20 mg Furosemide (Lasix) 40 mg IVP DAILY [facility] Last Admin: 12/17/18 09:52 Dose: 40 mg Glimepiride (Amaryl) 4 mg PO ACBD [facility] Last Admin: 12/17/18 17:24 Dose: 4 mg Guaifenesin (Mucinex La) 600 mg PO BID [facility] Last Admin: 12/17/18 17:24 Dose: 600 mg Azithromycin 500 mg/ Sodium (Chloride) 250 mls @ 250 mls/hr IVPB DAILY [facility]; Protocol Last Admin: 12/17/18 09:49 Dose: 250 mls/hr Insulin Human Regular (Novolin R) 0 unit SC ACHS [facility]; Protocol Last Admin: 12/17/18 21:41 Dose: Not Given Losartan Potassium (Cozaar) 100 mg PO DAILY [facility] Last Admin: 12/17/18 09:51 Dose: 100 mg Metformin HCl (Glucophage) 850 mg PO BIDCC [facility] Last Admin: 12/17/18 17:24 Dose: 850 mg Methylprednisolone (Solu-Medrol) 40 mg IVP DAILY [facility] Metoprolol Succinate (Toprol Xl) 100 mg PO DAILY [facility] Last Admin: 12/17/18 09:51 Dose: 100 mg Montelukast Sodium (Singulair) 10 mg PO HS [facility] Last Admin: 12/17/18 22:14 Dose: 10 mg Sertraline HCl (Zoloft) 200 mg PO DAILY [facility] Last Admin: 12/17/18 09:50 Dose: 200 mg Simethicone (Mylicon Liq) 40 mg PO QID PRN PRN Reason: Dyspepsia Trazodone HCl (Desyrel) 50 mg PO DAILY [facility] Last Admin: 12/17/18 09:53 Dose: 50 mg - Labs Labs: 12/17/18 07:49 12/17/18 07:49 PT 11.0 SECONDS (9.7-12.2) 12/11/18 23:33 INR 1.0 12/11/18 23:33 APTT 31.0 SECONDS (21-34) 12/11/18 23:33
--- NOTE | 2018-12-18 00:56 | PN ---
DATE: 12/17/2018 SUBJECTIVE: The patient is seen and examined at bedside. The patient offers no new complaints. His cough is still persistent but better than yesterday. No wheezing. Shortness of breath is slightly better, improving on medication. Denies any chest pain. Denies any other new complaints. PHYSICAL EXAMINATION: GENERAL: Middle-aged male, lying in bed, in no acute distress. VITAL SIGNS: Blood pressure 147/87, pulse 64, respirations 20, temperature 97.9 degrees Fahrenheit, O2 sat is 95% on room air. HEENT: Pupils equal, round, and reacting to light and accommodation. Extraocular muscles intact. No icterus. No pallor. No oral thrush. No pharyngeal congestion. NECK: Supple. No JVD. LUNGS: Bilateral vesicular breath sounds. No wheezing. No rhonchi. CARDIOVASCULAR SYSTEM: S1 and S2 present, regular. ABDOMEN: Soft and nontender. Bowel sounds present. No guarding, no rigidity, and no rebound tenderness noted. CENTRAL NERVOUS SYSTEM: Alert, awake, oriented x3. No focal deficits noted. EXTREMITIES: No edema. Palpable peripheral pulses. MEDICATIONS: Include DuoNeb every 6 hours, Norvasc 10 mg daily, Brovana 15 mcg every 12 hours, azithromycin 500 mg daily, Pulmicort, aspirin 81 mg daily, Catapres 0.2 mg p.o. b.i.d., Pepcid 20 mg p.o. b.i.d., Lasix 40 mg IV push daily, Amaryl 4 mg p.o. before meals daily, Mucinex LA 600 mg p.o. b.i.d., Cozaar 100 mg daily, metformin 850 mg p.o. b.i.d., Solu-Medrol 40 mg IV every 12 hours, metoprolol 100 mg p.o. daily, Singulair 10 mg p.o. at bedtime, Zoloft 200 mg daily, simethicone as needed, and trazodone 50 mg daily. LABORATORY DATA: Labs from this morning: WBC 12.1, hemoglobin 15.6, hematocrit 47.1, platelets 204. Sodium 134, potassium 4.4, chloride 97, bicarb 27, BUN 26, creatinine 1.2, glucose 171, calcium 9.2. Total bilirubin 0.8, AST 144, ALT 217, alkaline phosphatase 66, total protein 7.3, albumin 4. ASSESSMENT AND PLAN: A middle-aged male with history of coronary artery disease, congestive heart failure, cardiomyopathy, status post automatic implantable cardioverter-defibrillator, hypertension, hyperlipidemia, diabetes mellitus, depression, chronic obstructive pulmonary disease exacerbation, acute bronchitis, elevated liver function tests probably secondary to vascular congestion with ultrasound was negative, represents fatty infiltration. Transaminases are improving. His breathing symptoms are better on bronchodilators, antibiotics and Solu-Medrol. Continue with current cardiac medications. Follow up with Cardiology and Pulmonary. If the patient is cleared by Cardiology, we will plan discharging the patient home in the morning. Sheila Cruz MD
--- NOTE | 2018-12-18 07:11 | PN ---
DATE: 12/17/2018 LOCATION: Room 663. SUBJECTIVE: This is a 53-year-old male with recent uncontrolled type 2 diabetes, presenting here with transient hyperglycemic accelerations with concomitant precordial chest pain and undergoing cardiac workup and management at this time. His glycemic levels are fluctuating, but improved and the glucose values have ranged from 172 to 210 and 247 mg/dL. His chemistry showed BUN of 26, sodium 134, potassium 4.4, chloride 97, CO2 of 27, glucose 171, and creatinine 1.2. ASSESSMENT: This is a 53-year-old male with significant cardiac vasculopathy and underlying cardiomyopathy presenting here with precordial chest pain and also with concomitant hyperglycemic accelerations and known history of type 2 diabetes with suboptimal metabolic control with an A1c of 9.4% as noted. PLAN OF MANAGEMENT: We will modify his current oral hypoglycemic drug therapy and increase the metformin to 850 mg b.i.d. to start today as ordered. We will also increase the glimepiride to 4 mg b.i.d. before meals to start today as ordered. We will also continue the low-dose correction scale using Novolog insulin as given. We will obtain serial chemistries and supplement accordingly as needed. We will reinforce diabetic education and dietary instructions as noted. We will follow and advise accordingly. Bertha Carr MD
[2018-12-18 07:58] VITALS: PULSE 60; TEMP 98.6
[2018-12-18] MEDS: Budesonide 0.5 mg/2 ml Inhal Susp UD INH SCH (08:03)
[2018-12-18] MEDS: Albuterol-Ipratrop 3 mg / 0.5 (3 ml) UD INH SCH (08:03)
[2018-12-18] MEDS: guaiFENesin 600 mg ER Tab PO SCH (09:04)
[2018-12-18] MEDS: Metoprolol Succinate 100 mg XL Tab PO SCH (09:04)
[2018-12-18 09:05] VITALS: BP 173/93
[2018-12-18] MEDS ORDERED: MethylPREDNISolone 40 mg Vial IVP SCH (10:00)
[2018-12-18] MEDS: Azithromycin 500 MG in Sodium Chloride 0.9% 250 ML IVPB SCH (10:04)
--- NOTE | 2018-12-18 10:42 | CP.PCM.PN ---
Subjective - Date & Time of Evaluation Date of Evaluation: 12/18/18 Time of Evaluation: 10:25 - Subjective Subjective: Discharge summary dictated #[id number] Objective - Vital Signs/Intake and Output Vital Signs (last 24 hours): Temp Pulse Resp BP Pulse Ox 98.6 F 60 20 173/93 H 96 12/18/18 07:00 12/18/18 07:00 12/18/18 07:00 12/18/18 09:02 12/18/18 07:00 Intake and Output: 12/18/18 12/18/18 06:59 18:59 Intake Total 120 Balance 120 - Medications Medications: Current Medications Albuterol/Ipratropium (Duoneb 3 Mg/0.5 Mg (3 Ml) Ud) 3 ml INH RQ6 [facility] Last Admin: 12/18/18 08:03 Dose: 3 ml Amlodipine Besylate (Norvasc) 10 mg PO DAILY [facility] Last Admin: 12/18/18 09:04 Dose: 10 mg Arformoterol Tartrate (Brovana) 15 mcg INH RQ12@1000,2200 [facility] Last Admin: 12/17/18 21:33 Dose: 15 mcg Aspirin (Aspirin Chewable) 81 mg PO DAILY [facility] Last Admin: 12/18/18 09:04 Dose: 81 mg Budesonide (Pulmicort Respules) 0.5 mg INH RQ12 [facility] Last Admin: 12/18/18 08:03 Dose: Not Given Clonidine HCl (Catapres) 0.2 mg PO BID [facility] Last Admin: 12/18/18 09:05 Dose: 0.2 mg Famotidine (Pepcid) 20 mg PO BID [facility] Last Admin: 12/18/18 09:05 Dose: 20 mg Furosemide (Lasix) 40 mg IVP DAILY [facility] Last Admin: 12/18/18 09:02 Dose: 40 mg Glimepiride (Amaryl) 4 mg PO ACBD [facility] Last Admin: 12/18/18 08:42 Dose: 4 mg Guaifenesin (Mucinex La) 600 mg PO BID [facility] Last Admin: 12/18/18 09:04 Dose: 600 mg Azithromycin 500 mg/ Sodium (Chloride) 250 mls @ 250 mls/hr IVPB DAILY [facility]; Protocol Last Admin: 12/18/18 10:04 Dose: 250 mls/hr Insulin Human Regular (Novolin R) 0 unit SC [facility]ED WITH [facility]; Protocol Last Admin: 12/17/18 21:41 Dose: Not Given Losartan Potassium (Cozaar) 100 mg PO DAILY [facility] Last Admin: 12/18/18 09:04 Dose: 100 mg Metformin HCl (Glucophage) 850 mg PO BIDCC [facility] Last Admin: 12/18/18 09:01 Dose: 850 mg Methylprednisolone (Solu-Medrol) 40 mg IVP DAILY [facility] Last Admin: 12/18/18 09:01 Dose: 40 mg Metoprolol Succinate (Toprol Xl) 100 mg PO DAILY [facility] Last Admin: 12/18/18 09:04 Dose: 100 mg Montelukast Sodium (Singulair) 10 mg PO HS [facility] Last Admin: 12/17/18 22:14 Dose: 10 mg Sertraline HCl (Zoloft) 200 mg PO DAILY [facility] Last Admin: 12/18/18 09:04 Dose: 200 mg Simethicone (Mylicon Liq) 40 mg PO QID PRN PRN Reason: Dyspepsia Trazodone HCl (Desyrel) 50 mg PO DAILY [facility] Last Admin: 12/18/18 09:04 Dose: 50 mg - Labs Labs: 12/17/18 07:49 12/17/18 07:49 PT 11.0 SECONDS (9.7-12.2) 12/11/18 23:33 INR 1.0 12/11/18 23:33 APTT 31.0 SECONDS (21-34) 12/11/18 23:33
[2018-12-18 13:36] VITALS: O2SAT 94
--- NOTE | 2018-12-18 16:51 | PN ---
DATE: 12/18/2018 ENDOCRINOLOGY FOLLOWUP NOTE LOCATION: Room 663. SUBJECTIVE: This is a 53-year-old male with recent uncontrolled type 2 diabetes, presenting here with precordial chest pain and undergoing cardiac workup and management and is also being followed closely for metabolic management, because of recent hyperglycemic accelerations as noted thereof. His glucose values overnight are fluctuating but improved and have ranged from 157 to 210 mg/dL. It was 172 at bedtime last night. LABORATORY DATA: His chemistry showed BUN of 26, sodium 134, potassium 4.4, chloride 97, CO2 of 27, glucose 171 and creatinine 1.2. ASSESSMENT: This is a 53-year-old male with uncontrolled type 2 diabetes with significant cardiac vasculopathy and underlying cardiomyopathy, presenting here with precordial chest pain and is being followed now for metabolic management. PLAN OF MANAGEMENT: We will continue the metformin given as 850 mg b.i.d. with meals as ordered. We will also continue the Amaryl given at a modified dose of 4 mg b.i.d. before meals as ordered. We will continue the low-dose correction scale using Novolog insulin as ordered. We will obtain serial chemistries and supplement accordingly as needed. We will follow. Bertha Carr MD
--- NOTE | 2018-12-19 12:04 | PCM.HF ---
Heart Failure Core Measure - Heart Failure Ejection Fraction: Less Than 40 % LIZZY Inhibitor Prescribed: Yes Beta-Luz Prescribed: Metoprolol Succinate Angiotensin II Receptor Luz Prescribed: No Contraindication/Reason for not providing: on lizzy AnticoagulationTherapy for Atrial Fibrillation/Atrialflutter: No Contraindication/Reason for not providing: no hx of a fib Aldosterone Antagonist Prescribed: No Contraindication/Reason for not providing: risk for hyperkalemia Hydralazine Nitrate Prescribed: No Contraindication/Reason for not providing: on caluim channel luz Implantable Cardioverter Defibrillator Therapy: Yes Contraindication/Reason for not providing: pt has AICD Cardiac Resynchronization Therapy Prescribed: No Contraindication/Reason for not providing: PT HAS AICD - Follow up Will be discharged to: Home Follow Up Date (must be within 7 days from discharge): 12/22/18 Follow Up Time: 15:00
== END 2018-12-18 12:14 | disposition home or self-care (01) | DRG 127 ==
LOC: C.ER 22:42 → C.6T 12-12 00:29 → OBSVTOIN 12-12 00:32
PROVIDERS: ADMIT Internal Medicine; ATTEND Internal Medicine
DX: I11.0 Hypertensive heart disease with heart failure (principal); E11.65 Type 2 diabetes mellitus with hyperglycemia; E11.649 Type 2 diabetes mellitus with hypoglycemia without coma; J44.1 Chronic obstructive pulmonary disease with (acute) exacerbation; E78.5 Hyperlipidemia, unspecified; I50.9 Heart failure, unspecified; F17.210 Nicotine dependence, cigarettes, uncomplicated; I25.10 Atherosclerotic heart disease of native coronary artery without angina pectoris; Z95.810 Presence of automatic (implantable) cardiac defibrillator; F32.9 Major depressive disorder, single episode, unspecified; F10.20 Alcohol dependence, uncomplicated; I25.5 Ischemic cardiomyopathy